=== PATIENT | female | born 1960 | race African-American/Black ===

== ENCOUNTER 2017-03-11 09:44 | Inpatient (IN) | payer OTHER ==
[2017-03-11 10:09] VITALS: BMI 25.6
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
[2017-03-11] MEDS ORDERED: MENTHOL/PHENOL 1 EACH UD MM PRN (12:30)
[2017-03-11] MEDS ORDERED: hydrOXYzine PAMOATE 50 MG CAPSULE (FP) PO PRN (12:30)
[2017-03-11] MEDS ORDERED: MAGNESIUM CITRATE 300 ML BOTTLE PO PRN (12:30)
[2017-03-11] MEDS ORDERED: MAG HYDROX/AL HYDROX/SIMETH 30 ML UNIT-DOSE CUP PO PRN (12:30)
[2017-03-11] MEDS ORDERED: NICOTINE POLACRILEX 2 MG GUM BUC PRN (12:30)
[2017-03-11] MEDS ORDERED: guaiFENesin/D-METHORPHAN HB 10 ML UNIT-DOSE CUPS PO PRN (12:30)
[2017-03-11] MEDS ORDERED: chlordiazePOXIDE HCL 25 MG CAPSULE PO PRN (12:30)
[2017-03-11] MEDS ORDERED: IBUPROFEN 400 MG TABLET (FP) PO PRN (12:30)
[2017-03-11] MEDS ORDERED: LOPERAMIDE HCL 2 MG CAPSULE PO PRN (12:30)
[2017-03-11] MEDS ORDERED: MAGNESIUM HYDROX 2400MG/30ML ORAL SUSPENSION 30 ML CUP PO PRN (12:30)
[2017-03-11] MEDS ORDERED: P-EPHED 60MG/TRIPROLIDI 2.5MG TABLET PO PRN (12:30)
[2017-03-11] MEDS ORDERED: chlordiazePOXIDE HCL 25 MG CAPSULE PO ONE (12:52)
[2017-03-11] MEDS: LISINOPRIL 5 MG TABLET (FP) PO SCH (13:16)
[2017-03-11] MEDS: NICOTINE 14 MG/24 HOURS TOPICAL PATCH TD SCH (13:19)
--- NOTE | 2017-03-11 13:30 | CONSULT ---
[facility] Psychiatric Consult - Data Date of interview: 03/11/17 Admission source: [facility] Identifying data: This is 56 years old female with psycvhiatric hospitalization history, history oif Bipolae disorder, intoxicated with: Opioids, Alcohol, Cocaine, PCP, Nicotine Substance Abuse History: - Smoking Cessation. Smoking history: Current every day smoker. Have you smoked in the past 12 months: Yes. Aproximately how many cigarettes per day: 20. If you are a former smoker, when did you quit?: 2 years ago. Cigars Per Day: 0. Hx Chewing Tobacco Use: No. Initiated information on smoking cessation: Yes. 'Breaking Loose' booklet given: . - Substance & Tx. History. Hx Alcohol Use: Yes. Hx Substance Use: Yes. Substance Use Type: Alcohol, Cocaine, Heroin, Opiates, Prescribed. Hx Substance Use Treatment: Yes. - Substances Abused. Heroin. Route: Smoking. Frequency: Daily. Amount used: 1 bundle. Age of first use: 55. Date of Last Use: 03/08/17. Cocaine. Route: Smoking. Frequency: Daily. Amount used: $800. Age of first use: 23. Date of Last Use: 03/10/17. PCP. Route: Smoking. Frequency: Daily. Amount used: 4 bags. Age of first use: 18. Date of Last Use: 03/10/17. Alcohol. Route: Oral. Frequency: Daily. Amount used: 6 12oz can of casi beer. Age of first use: 17. Date of Last Use: 03/09/17 Medical History: SLE, Hypothuroidism Psychiatric History: Patient reports history of Bipolar disorder with most recent psychiatric admission on 2014 at [facility] for safety, reports taking prior to admission: Celexa 20mg poqd. Seroquel 400mg pop qhs. Trazodone 150mg po qhs Physical/Sexual Abuse/Trauma History: Denies Additional Comment: Celexa 20mg poqd. Seroquel 400mg pop qhs. Trazodone 150mg po qhs Mental Status Exam - Mental Status Exam Alert and Oriented to: Person Cognitive Function: Fair Patient Appearance: Unkempt Mood: Angry Affect: Constricted Patient Behavior: Cooperative Speech Pattern: Appropriate Voice Loudness: Normal Thought Process: Goal Oriented Thought Disorder: Being Controlled Hallucinations: Denies Suicidal Ideation: Denies Homicidal Ideation: Denies Insight/Judgement: Fair Sleep: Difficulty falling asleep Appetite: Fair Muscle strength/Tone: Normal Gait/Station: Normal Additional Comments: Celexa 20mg poqd. Seroquel 400mg pop qhs. Trazodone 150mg po qhs Psychiatric Findings - Problem List ([place] 1, 2,3) (1) Alcohol dependence with uncomplicated withdrawal Current Visit: Yes Status: Acute (2) Opioid dependence on agonist therapy Current Visit: Yes Status: Acute (3) Bipolar disorder Current Visit: No Status: Chronic (4) Hypothyroidism Current Visit: No Status: Chronic (5) Lupus Current Visit: No Status: Chronic (6) PCP dependence Current Visit: No Status: Chronic - Initial Treatment Plan Initial Treatment Plan: Celexa 20mg poqd. Seroquel 400mg pop qhs. Trazodone 150mg po qhs
[2017-03-11] MEDS: HYDROXYCHLOROQUINE SO4 200 MG TABLET (FP) PO SCH ×2 (14:30→23:38)
[2017-03-11] MEDS: chlordiazePOXIDE HCL 25 MG CAPSULE PO SCH ×2 (17:27→23:38)
[2017-03-11 19:40] LABS: URINE APPEARANCE CLEAR; URINE BILIRUBIN NEGATIVE (NEGATIVE); URINE BLOOD NEGATIVE (NEGATIVE); URINE COLOR YELLOW; URINE GLUCOSE (UA) NEGATIVE (NEGATIVE); URINE KETONE NEGATIVE (NEGATIVE); URINE LEUK ESTERASE NEGATIVE (NEGATIVE); URINE NITRITE NEGATIVE (NEGATIVE); URINE PROTEIN NEGATIVE (NEGATIVE); URINE UROBILINOGEN NEGATIVE mg/dL (0.2-1.0)
[2017-03-11] MEDS: traZODone HCL 50 MG TABLET (FP) PO SCH (23:38)
[2017-03-11] MEDS: QUEtiapine FUMARATE 400 MG TABLET PO SCH (23:38)
[2017-03-11] MEDS: THIAMINE HCL 100 MG TABLET (FP) PO SCH (23:39)
[2017-03-12] MEDS: chlordiazePOXIDE HCL 25 MG CAPSULE PO SCH ×4 (05:34→23:41)
[2017-03-12 09:45] LABS: HEMATOCRIT 42.2 % (32.4-45.2); MCH 29.8 pg (25.7-33.7); MCHC 30.8 g/dl (32.0-36.0); MEAN CELL VOLUME 96.5 fl (80-96); MEAN PLT VOLUME 10.4 fl (7.5-11.1); PLATELET COUNT 186 K/MM3 (134-434); RBC 4.37 M/mm3 (3.60-5.2); RDW 14.2 % (11.6-15.6); WHITE BLOOD COUNT 3.6 K/mm3 (4.0-10.0)
[2017-03-12 09:57] LABS: ALBUMIN 2.7 g/dl (3.4-5.0); ANION GAP 6 (8-16); BLOOD UREA NITROGEN 19 mg/dL (7-18); CALCIUM 7.9 mg/dL (8.5-10.1); CHLORIDE 110 mmol/L (98-107); CO2 27 mmol/L (21-32); CREATININE 0.9 mg/dL (0.55-1.02); GLUCOSE,RANDOM 69 mg/dL (74-106); POTASSIUM 4.3 mmol/L (3.5-5.1); SGOT/AST 8 U/L (15-37); SGPT/ALT 16 U/L (12-78); SODIUM 143 mmol/L (136-145)
[2017-03-12 10:08] LABS: ALK PHOS 76 U/L (45-117); BILIRUBIN,TOTAL 0.4 mg/dL (0.2-1.0); TOT PROT 6.1 g/dl (6.4-8.2)
[2017-03-12] MEDS: HYDROXYCHLOROQUINE SO4 200 MG TABLET (FP) PO SCH ×2 (10:16→22:15)
[2017-03-12] MEDS: CITALOPRAM HYDROBROMIDE 20 MG TABLET (FP) PO SCH (10:16)
[2017-03-12] MEDS: METHADONE HCL 10 MG TABLET PO SCH (10:16)
[2017-03-12] MEDS: PRENATAL VITAMINS W/ FOLIC ACID TABLET (FP) PO SCH (10:16)
[2017-03-12] MEDS: LISINOPRIL 5 MG TABLET (FP) PO SCH (10:16)
[2017-03-12] MEDS: NICOTINE 14 MG/24 HOURS TOPICAL PATCH TD SCH (10:17)
[2017-03-12] MEDS ORDERED: FLU VACCINE QUAD 60 MCG/0.5 ML (MDV 17-18) IM ONE (12:00)
--- NOTE | 2017-03-12 13:21 | EKG ---
Test Reason : Blood Pressure : / mmHG Vent. Rate : 072 BPM Atrial Rate : 072 BPM P-R Int : 142 ms QRS Dur : 082 ms QT Int : 408 ms P-R-T Axes : 061 009 030 degrees QTc Int : 446 ms NORMAL SINUS RHYTHM POSSIBLE LEFT ATRIAL ENLARGEMENT BORDERLINE ECG NO PREVIOUS ECGS AVAILABLE Confirmed by MD Tien, Bandar ([id number]) on 03/12/2017 1:20:54 PM Referred By: Confirmed By:Bandar Chauhan MD
--- NOTE | 2017-03-12 13:56 | PN ---
S CIWA - CIWA Score Nausea/Vomitin Muscle Tremors: 4-Moderate,w/Arms Extend Anxiety: 4-Mod. Anxious/Guarded Agitation: 4-Moderately Restless Paroxysmal Sweats: 3 Orientation: 0-Oriented Tacttile Disturbances: 1-Very Mild Itch/Numbness Auditory Disturbances: 0-None Visual Disturbances: 0-None Headache: 2-Mild CIWA-Ar Total Score: 21 [facility] Progress Note (SOAP) Subjective: Tremor, chills, teary eyes, runny nose, sweating, yawning Objective: 03/12/17 13:53 Last Vital Signs Temp Pulse Resp BP Pulse Ox 97.3 F L 69 20 136/86 03/12/17 10:00 03/12/17 10:00 03/12/17 10:00 03/12/17 10:00 Laboratory Tests 03/11/17 03/12/17 03/12/17 19:00 06:00 06:00 WBC 3.6 L RBC 4.37 Hgb 13.0 D Hct 42.2 D MCV 96.5 H MCH 29.8 MCHC 30.8 L RDW 14.2 D Plt Count 186 MPV 10.4 Sodium 143 Potassium 4.3 Chloride 110 H Carbon Dioxide 27 Anion Gap 6 L BUN 19 H D Creatinine 0.9 D Creat Clearance w eGFR > 60 Random Glucose 69 L Calcium 7.9 L Total Bilirubin 0.4 D AST 8 L D ALT 16 D Alkaline Phosphatase 76 Total Protein 6.1 L Albumin 2.7 L TSH 0.75 Urine Color Yellow Urine Appearance Clear Urine pH 5.0 Ur Specific [place] 1.026 Urine Protein Negative Urine Glucose (UA) Negative Urine Ketones Negative Urine Blood Negative Urine Nitrite Negative Urine Bilirubin Negative Urine Urobilinogen Negative Ur Leukocyte Esterase Negative RPR Titer 03/12/17 06:00 WBC RBC Hgb Hct MCV MCH MCHC RDW Plt Count MPV Sodium Potassium Chloride Carbon Dioxide Anion Gap BUN Creatinine Creat Clearance w eGFR Random Glucose Calcium Total Bilirubin AST ALT Alkaline Phosphatase Total Protein Albumin TSH Urine Color Urine Appearance Urine pH Ur Specific [place] Urine Protein Urine Glucose (UA) Urine Ketones Urine Blood Urine Nitrite Urine Bilirubin Urine Urobilinogen Ur Leukocyte Esterase RPR Titer Nonreactive Labs noted Assessment: 03/12/17 13:54 Withdrawal symptoms Plan: Continue detox Methadone 20mg PO daily (MMTP) resumed Encouraged to drink lots of water for hydration
[2017-03-12] MEDS: QUEtiapine FUMARATE 400 MG TABLET PO SCH (22:15)
[2017-03-12] MEDS: THIAMINE HCL 100 MG TABLET (FP) PO SCH (22:15)
[2017-03-12] MEDS: ACETAMINOPHEN 325 MG TABLET (FP) PO PRN (22:16)
[2017-03-12] MEDS: traZODone HCL 50 MG TABLET (FP) PO SCH (23:41)
[2017-03-13] MEDS: chlordiazePOXIDE HCL 25 MG CAPSULE PO SCH ×2 (06:55→11:14)
--- NOTE | 2017-03-13 08:43 | PN ---
[facility] CIWA - CIWA Score Nausea/Vomitin Muscle Tremors: 3 Anxiety: 3 Agitation: 3 Paroxysmal Sweats: 3 Orientation: 0-Oriented Tacttile Disturbances: 1-Very Mild Itch/Numbness Auditory Disturbances: 0-None Visual Disturbances: 0-None Headache: 1-Very Mild CIWA-Ar Total Score: 17 [facility] Progress Note (SOAP) Subjective: patient appears sedated from trazadone given for sleep at night, responsive, interrupted sleep, anxiety, trmeosrs and sweats Objective: 03/13/17 08:42 Vital Signs - 8 hr 03/13/17 03/13/17 03:30 05:38 Temperature 98.1 F Pulse Rate 75 Respiratory 18 18 Rate Blood Pressure 133/74 Laboratory Tests 03/11/17 03/12/17 03/12/17 19:00 06:00 06:00 WBC 3.6 L RBC 4.37 Hgb 13.0 D Hct 42.2 D MCV 96.5 H MCH 29.8 MCHC 30.8 L RDW 14.2 D Plt Count 186 MPV 10.4 Sodium 143 Potassium 4.3 Chloride 110 H Carbon Dioxide 27 Anion Gap 6 L BUN 19 H D Creatinine 0.9 D Creat Clearance w eGFR > 60 Random Glucose 69 L Calcium 7.9 L Total Bilirubin 0.4 D AST 8 L D ALT 16 D Alkaline Phosphatase 76 Total Protein 6.1 L Albumin 2.7 L TSH 0.75 Urine Color Yellow Urine Appearance Clear Urine pH 5.0 Ur Specific [place] 1.026 Urine Protein Negative Urine Glucose (UA) Negative Urine Ketones Negative Urine Blood Negative Urine Nitrite Negative Urine Bilirubin Negative Urine Urobilinogen Negative Ur Leukocyte Esterase Negative RPR Titer 03/12/17 06:00 WBC RBC Hgb Hct MCV MCH MCHC RDW Plt Count MPV Sodium Potassium Chloride Carbon Dioxide Anion Gap BUN Creatinine Creat Clearance w eGFR Random Glucose Calcium Total Bilirubin AST ALT Alkaline Phosphatase Total Protein Albumin TSH Urine Color Urine Appearance Urine pH Ur Specific [place] Urine Protein Urine Glucose (UA) Urine Ketones Urine Blood Urine Nitrite Urine Bilirubin Urine Urobilinogen Ur Leukocyte Esterase RPR Titer Nonreactive Assessment: 03/13/17 08:42 withdrawal sx cont detox, d/c prns, cut dose of trazadone to prevent sedation in AM, fluids, encourage ambulation
[2017-03-13] MEDS: METHADONE HCL 10 MG TABLET PO SCH (09:00)
[2017-03-13] MEDS: HYDROXYCHLOROQUINE SO4 200 MG TABLET (FP) PO SCH ×2 (11:13→22:07)
[2017-03-13] MEDS: CITALOPRAM HYDROBROMIDE 20 MG TABLET (FP) PO SCH (11:13)
[2017-03-13] MEDS: PRENATAL VITAMINS W/ FOLIC ACID TABLET (FP) PO SCH (11:13)
[2017-03-13] MEDS: LISINOPRIL 5 MG TABLET (FP) PO SCH (11:14)
[2017-03-13] MEDS: NICOTINE 14 MG/24 HOURS TOPICAL PATCH TD SCH (11:16)
[2017-03-13] MEDS: chlordiazePOXIDE 5 MG CAPSULE PO SCH ×2 (18:02→22:53)
[2017-03-13] MEDS ORDERED: traZODone HCL 50 MG TABLET (FP) PO SCH (22:00)
[2017-03-13] MEDS: THIAMINE HCL 100 MG TABLET (FP) PO SCH (22:07)
[2017-03-13] MEDS: QUEtiapine FUMARATE 100 MG TABLET (FP) PO SCH (22:07)
[2017-03-13] MEDS: ACETAMINOPHEN 325 MG TABLET (FP) PO PRN (22:08)
[2017-03-14] MEDS: CITALOPRAM HYDROBROMIDE 20 MG TABLET (FP) PO SCH (10:05)
[2017-03-14] MEDS: LISINOPRIL 5 MG TABLET (FP) PO SCH (10:05)
[2017-03-14] MEDS: HYDROXYCHLOROQUINE SO4 200 MG TABLET (FP) PO SCH ×2 (10:05→22:26)
[2017-03-14] MEDS: PRENATAL VITAMINS W/ FOLIC ACID TABLET (FP) PO SCH (10:05)
[2017-03-14] MEDS: NICOTINE 14 MG/24 HOURS TOPICAL PATCH TD SCH (10:06)
[2017-03-14] MEDS: chlordiazePOXIDE 5 MG CAPSULE PO SCH (11:00)
--- NOTE | 2017-03-14 12:26 | PN ---
[facility] Progress Note (SOAP) Subjective: Headache, sweating, anxious Objective: 03/14/17 12:24 Last Vital Signs Temp Pulse Resp BP Pulse Ox 97.9 F 81 18 138/98 03/14/17 09:42 03/14/17 09:42 03/14/17 09:42 03/14/17 09:42 Laboratory Tests 03/11/17 03/12/17 03/12/17 19:00 06:00 06:00 WBC 3.6 L RBC 4.37 Hgb 13.0 D Hct 42.2 D MCV 96.5 H MCH 29.8 MCHC 30.8 L RDW 14.2 D Plt Count 186 MPV 10.4 Sodium 143 Potassium 4.3 Chloride 110 H Carbon Dioxide 27 Anion Gap 6 L BUN 19 H D Creatinine 0.9 D Creat Clearance w eGFR > 60 Random Glucose 69 L Calcium 7.9 L Total Bilirubin 0.4 D AST 8 L D ALT 16 D Alkaline Phosphatase 76 Total Protein 6.1 L Albumin 2.7 L TSH 0.75 Urine Color Yellow Urine Appearance Clear Urine pH 5.0 Ur Specific [place] 1.026 Urine Protein Negative Urine Glucose (UA) Negative Urine Ketones Negative Urine Blood Negative Urine Nitrite Negative Urine Bilirubin Negative Urine Urobilinogen Negative Ur Leukocyte Esterase Negative RPR Titer 03/12/17 06:00 WBC RBC Hgb Hct MCV MCH MCHC RDW Plt Count MPV Sodium Potassium Chloride Carbon Dioxide Anion Gap BUN Creatinine Creat Clearance w eGFR Random Glucose Calcium Total Bilirubin AST ALT Alkaline Phosphatase Total Protein Albumin TSH Urine Color Urine Appearance Urine pH Ur Specific [place] Urine Protein Urine Glucose (UA) Urine Ketones Urine Blood Urine Nitrite Urine Bilirubin Urine Urobilinogen Ur Leukocyte Esterase RPR Titer Nonreactive Labs noted Assessment: 03/14/17 12:24 Withdrawal symptoms Plan: Continue detox Encouraged to drink lots of water
[2017-03-14] MEDS: chlordiazePOXIDE HCL 10 MG CAPSULE PO SCH ×2 (17:45→22:36)
[2017-03-14] MEDS: THIAMINE HCL 100 MG TABLET (FP) PO SCH (22:26)
[2017-03-14] MEDS: QUEtiapine FUMARATE 100 MG TABLET (FP) PO SCH (22:26)
[2017-03-15] MEDS: chlordiazePOXIDE HCL 10 MG CAPSULE PO SCH (05:25)
[2017-03-15 10:02] VITALS: BP 123/78; PULSE 83; TEMP 97.7
[2017-03-15] MEDS: HYDROXYCHLOROQUINE SO4 200 MG TABLET (FP) PO SCH (10:13)
[2017-03-15] MEDS: PRENATAL VITAMINS W/ FOLIC ACID TABLET (FP) PO SCH (10:13)
[2017-03-15] MEDS: NICOTINE 14 MG/24 HOURS TOPICAL PATCH TD SCH (10:13)
[2017-03-15] MEDS: CITALOPRAM HYDROBROMIDE 20 MG TABLET (FP) PO SCH (10:13)
[2017-03-15] MEDS: LISINOPRIL 5 MG TABLET (FP) PO SCH (10:13)
--- NOTE | 2017-03-15 16:53 | DS ---
[facility] Detox Discharge Summary Admission Date: 03/11/17 Discharge Date: 03/15/17 - History Present History: Alcohol Dependence, Cocaine Dependence, Opioid Dependence Additional Comments: Patient was accepted to inpatient rehab here at [facility] but she refused stating that she wants to go home and take care of things. As per patient, she is not ready for rehab and will call to see if any bed available whenever she is ready for rehab. Pertinent Past History: SLE - Physical Exam Results Vital Signs: Vital Signs Temperature 97.7 F 03/15/17 10:00 Pulse Rate 83 03/15/17 10:00 Respiratory Rate 18 03/15/17 10:00 Blood Pressure 123/78 03/15/17 10:00 O2 Sat by Pulse Oximetry (%) Pertinent Admission Physical Exam Findings: Withdrawal symptoms Laboratory Tests 03/11/17 03/12/17 03/12/17 19:00 06:00 06:00 WBC 3.6 L RBC 4.37 Hgb 13.0 D Hct 42.2 D MCV 96.5 H MCH 29.8 MCHC 30.8 L RDW 14.2 D Plt Count 186 MPV 10.4 Sodium 143 Potassium 4.3 Chloride 110 H Carbon Dioxide 27 Anion Gap 6 L BUN 19 H D Creatinine 0.9 D Creat Clearance w eGFR > 60 Random Glucose 69 L Calcium 7.9 L Total Bilirubin 0.4 D AST 8 L D ALT 16 D Alkaline Phosphatase 76 Total Protein 6.1 L Albumin 2.7 L TSH 0.75 Urine Color Yellow Urine Appearance Clear Urine pH 5.0 Ur Specific [place] 1.026 Urine Protein Negative Urine Glucose (UA) Negative Urine Ketones Negative Urine Blood Negative Urine Nitrite Negative Urine Bilirubin Negative Urine Urobilinogen Negative Ur Leukocyte Esterase Negative RPR Titer 03/12/17 06:00 WBC RBC Hgb Hct MCV MCH MCHC RDW Plt Count MPV Sodium Potassium Chloride Carbon Dioxide Anion Gap BUN Creatinine Creat Clearance w eGFR Random Glucose Calcium Total Bilirubin AST ALT Alkaline Phosphatase Total Protein Albumin TSH Urine Color Urine Appearance Urine pH Ur Specific [place] Urine Protein Urine Glucose (UA) Urine Ketones Urine Blood Urine Nitrite Urine Bilirubin Urine Urobilinogen Ur Leukocyte Esterase RPR Titer Nonreactive Labs noted - Treatment Hospital Course: Detox Protocol Followed, Detoxed Safely, Responded well, Discharged Condition Good - Medication Discharge Medications: Ambulatory Orders Hydroxychloroquine So4 [Plaquenil -] 200 mg PO BID 08/20/13 Citalopram Hydrobromide [Celexa -] 20 mg PO DAILY #30 tablet 03/11/17 Quetiapine Fumarate [Seroquel -] 400 mg PO HS #30 tablet 03/11/17 Trazodone HCl [Desyrel -] 150 mg PO HS #30 tablet 03/11/17 Trazodone HCl [Desyrel -] 150 mg PO HS #30 tablet 03/12/17 Trazodone HCl 150 mg PO HS #30 tablet 03/13/17 - Diagnosis (1) Cocaine dependence Status: Chronic (2) Nicotine dependence Status: Chronic (3) Alcohol dependence with uncomplicated withdrawal Status: Acute (4) Opioid dependence on agonist therapy Status: Acute (5) SLE (systemic lupus erythematosus) Status: Chronic (6) Bipolar disorder Status: Chronic - AMA Did Patient Leave Against Medical Advice: No (F/U with PCP within 1 week, pt refused rehab here at [facility])
== END 2017-03-15 10:18 | disposition home or self-care (01) | DRG 773 ==
LOC: YASAS 09:44 → Y6N 11:16
PROVIDERS: ADMIT Internal Medicine; ATTEND Internal Medicine
PROC: HZ2ZZZZ Detoxification Services for Substance Abuse Treatment (ICD-10-PCS; principal; 2017-03-11)
DX: F10.230 Alcohol dependence with withdrawal, uncomplicated (principal); F11.20 Opioid dependence, uncomplicated; F14.20 Cocaine dependence, uncomplicated; F16.20 Hallucinogen dependence, uncomplicated; F17.210 Nicotine dependence, cigarettes, uncomplicated; F31.9 Bipolar disorder, unspecified; M32.9 Systemic lupus erythematosus, unspecified
CPT/HCPCS: 36415; 80053; 81003; 84443; 85027; 86593; 90688; 93005; 93010; G0008

== ENCOUNTER 2018-05-31 01:05 | Inpatient (IN) | payer OTHER ==
[2018-05-31 02:11] VITALS: BMI 22.3
--- NOTE | 2018-05-31 02:11 | HP ---
CIWA Score Nausea/Vomitin-No Nausea/No Vomiting Muscle Tremors: None Anxiety: 4-Mod. Anxious/Guarded Agitation: 4-Moderately Restless Paroxysmal Sweats: No Perspiration Orientation: 0-Oriented Tacttile Disturbances: 3-Moderate Itch/Numb/Burn Auditory Disturbances: 1-Very Mild Visual Disturbances: 1-Very Mild Sensitivity Headache: 2-Mild CIWA-Ar Total Score: 15 - Admission Criteria [facility] Guidelines: Admission for Medically Managed Detox: Requires at least one of the followin. CIWA greater than 12 2. Seizures within the past 24 hours 3. Delirium tremens within the past 24 hours 4. Hallucinations within the past 24 hours 5. Acute intervention needed for co occurring medical disorder 6. Acute intervention needed for co occurring psychiatric disorder 7. Severe withdrawal that cannot be handled at a lower level of care (continued vomiting, continued diarrhea, abnormal vital signs) requiring intravenous medication and/or fluids 8. Patient presents the following: CIWA greater than 12, Acute intervention needed for co-occurring med or psych disorder (bipolar, depression, lupus, eczema) Admission Criteria Met: Admission criteria met Admission ROS [facility] - [facility] Chief Complaint: c/o worsening withdrawal sx's Allergies/Adverse Reactions: Allergies Allergy/AdvReac Type Severity Reaction Status Date / Time No Known Allergies Allergy Verified 05/31/18 04:40 History of Present Illness: 58 Y.O. FEMALE WITH HX/O ALCOHOLISM SEEKING DETOX. CLIENT WAS REFERRED BY HER [facility] WHERE SHE IS ON MMTP . SHE REPORTS HER daily METHADONE DOSE IS 20 MG LDM 05/30/2018. SHE IS KNOWN TO THIS PROGRAM. LAST HERE 02/2017. SHE PRESENTS WITH C/O WITHDRAWAL SX'S. CIWA 15. MARTHA 0, UTOX + MTD, OPI, ESTEFANIA. SHE REPORTS 2- 6 PACKS OF BEER AND 1/2 PINT OF LIQUOR DAILY. LAST USE 1 DAY AGO.PMHX OF LUPUS, BIPOLAR, DEPRESSION, ECZEMA. LAST DETOX 2 YEARS AGO. REPORTS LONGEST CLEAN TIME 3 YEARS [id number]. RELAPSING IN 2013. DENIES HX/O SEIZURES, DT'S, SI, HI, AVH. CURRENTLY LIVES WITH FAMILY, UNEMPLOYED-SSI, DENIES LEGALS Exam Limitations: Physical Impairment (UNSTEADY GAIT 2/2 BLE PAIN) - Ebola screening Have you traveled outside of the country in the last 21 days: No Have you had contact with anyone from an Ebola affected area: No Have you been sick,other than usual withdrawal symptoms: No Do you have a fever: No - Review of Systems Constitutional: Loss of Appetite, Malaise, Night Sweats, Changes in sleep EENT: reports: Dental Problems (TOOTH ACHE) Respiratory: reports: No Symptoms reported Cardiac: reports: No Symptoms Reported GI: reports: Poor Appetite, Poor Fluid Intake : reports: Incontinence Musculoskeletal: reports: Back Pain, Joint Pain, Neck Pain Integumentary: reports: Dryness (GENERALIZED ECZEMA RASH TO LIMBS), Pruritus, Rash (ECZEMA) Neuro: reports: Tingling (TO BLE), Unsteady Gait (2/2 BLE FOOT PAIN) Endocrine: reports: No Symptoms Reported Hematology: reports: No Symptoms Reported Psychiatric: reports: Orientated x3, Agitated (IRRITABLE), Anxious, Depressed Other Systems: Reviewed and Negative Patient History - Patient Medical History Hx Anemia: No Hx Asthma: No Hx Chronic Obstructive Pulmonary Disease (COPD): No Hx Cancer: No Hx Cardiac Disorders: No Hx Congestive Heart Failure: No Hx Hypertension: No Hx Hypercholesterolemia: No Hx Pacemaker: No HX Cerebrovascular Accident: No Hx Seizures: No Hx Dementia: No Hx Diabetes: No Hx Gastrointestinal Disorders: No Hx Liver Disease: No Hx Genitourinary Disorders: No Hx Sexually Transmitted Disorders: No Hx Renal Disease (ESRD): No Hx Thyroid Disease: Yes Hx Human Immunodeficiency Virus (HIV): No Hx Hepatitis C: No Hx Depression: Yes Hx Suicide Attempt: No Hx Bipolar Disorder: Yes Hx Schizophrenia: No Other Medical History: LUPUS/ECZEMA - Patient Surgical History Past Surgical History: No Hx Neurologic Surgery: No Hx Cataract Extraction: No Hx Cardiac Surgery: No Hx Lung Surgery: No Hx Breast Surgery: No Hx Breast Biopsy: No Hx Abdominal Surgery: No Hx Appendectomy: No Hx Cholecystectomy: No Hx Genitourinary Surgery: No Hx Section: No Hx Orthopedic Surgery: No Hx Hysterectomy: No Anesthesia Reaction: No - PPD History Previous Implant?: Yes Documented Results: Negative w/o proof Implanted On Prior [facility] Admission?: Yes Date: 03/13/17 Results: 0MM PPD to be Administered?: Yes - Reproductive History Patient is a Female of Child Bearing Age (11 -55 yrs old): No Last Menstrual Period: 08/21/10 [place] [facility] [place] - Smoking Cessation Smoking history: Current every day smoker Have you smoked in the past 12 months: Yes Aproximately how many cigarettes per day: 10 Cigars Per Day: 0 Hx Chewing Tobacco Use: No Initiated information on smoking cessation: Yes 'Breaking Loose' booklet given: 05/31/18 - Substance & Tx. History Hx Alcohol Use: Yes Hx Substance Use: Yes Substance Use Type: Alcohol, Cocaine, Prescribed (MTD) Hx Substance Use Treatment: Yes ([facility]) - Substances Abused BEER/VODKA Route: Oral Frequency: Daily Amount used: 2-6 PACK/ 1/2 PINT Age of first use: 13 Date of Last Use: 05/30/18 COCAINE Route: Smoking Frequency: Daily Amount used: $400 Age of first use: 23 Date of Last Use: 05/30/18 HEROIN Route: Smoking Frequency: 1-2 times per week Amount used: 1/2 BAG Age of first use: 23 Date of Last Use: 05/30/18 Family Disease History - Family Disease History Family Disease History: Diabetes: Mother, Heart Disease: Father, CA: Sister Admission Physical Exam [facility] - Physical General Appearance: Yes: Disheveled, Moderate Distress, Irritable, Anxious, Other (MALODUROUS/ UNKEPT/SOILED CLOTHING) HEENTM: Yes: EOMI, Normocephalic, Normal Voice, FRANCOISE, Pharynx Normal, Rhinorrhea , Other (POOR DENTITION) Respiratory: Yes: Chest Non-Tender, Lungs Clear, Normal Breath Sounds, No Respiratory Distress, No Accessory Muscle Use Neck: Yes: No masses,lesions,Nodules, Supple, Trachea in good position Breast: Yes: Breast Exam Deferred Cardiology: Yes: Regular Rhythm, Regular Rate, S1, S2, Murmur Abdominal: Yes: Normal Bowel Sounds, Non Tender, Soft Genitourinary: Yes: Incontinient (REPRTED) Back: Yes: Normal Inspection Musculoskeletal: Yes: Other (UNSTEADY GAIT 2/2 TO LIMPING /R FOOT PAIN) Extremities: Yes: Swelling (BLE NON PITTING) Neurological: Yes: Fully Oriented, Alert, Motor Strength 5/5, Depressed Affect Integumentary: Yes: Dry (FLAKY), Warm, Rash (TO BLE AND FEET PATCHES OF DRY SILVERY FLAKY SKIN WITH AREAS OF LICHENIFICATION) Lymphatic: Yes: Within Normal Limits - Diagnostic (1) Alcohol dependence with uncomplicated withdrawal Current Visit: Yes Status: Acute (2) Opioid dependence on agonist therapy Current Visit: Yes Status: Chronic Comment: HELP METHADONE 20 MG PENDING VERIFICATION (3) Cocaine dependence Current Visit: Yes Status: Acute Qualifiers: Substance use status: uncomplicated Qualified Code(s): F14.20 - Cocaine dependence, uncomplicated (4) Nicotine dependence Current Visit: Yes Status: Chronic Qualifiers: Nicotine product type: cigarettes Substance use status: uncomplicated Qualified Code(s): F17.210 - Nicotine dependence, cigarettes, uncomplicated (5) SLE (systemic lupus erythematosus) Current Visit: Yes Status: Chronic Qualifiers: Systemic lupus erythematosus type: unspecified Systemic lupus erythematosus organ involvement: unspecified Qualified Code(s): M32.9 - Systemic lupus erythematosus, unspecified (6) At risk for dehydration due to poor fluid intake Current Visit: Yes Status: Acute (7) Depressed affect Current Visit: Yes Status: Acute (8) Eczema of lower leg Current Visit: Yes Status: Chronic (9) Urinary incontinence Current Visit: Yes Status: Chronic Qualifiers: Urinary Incontinence type: unspecified incontinence Qualified Code(s): R32 - Unspecified urinary incontinence (10) Hypothyroidism Current Visit: Yes Status: Chronic Qualifiers: Hypothyroidism type: unspecified Qualified Code(s): E03.9 - Hypothyroidism , unspecified Comment: NON COMPLAINT WITH TXMENT (11) Essential (primary) hypertension Current Visit: Yes Status: Chronic Cleared for Admission BHS - Detox or Rehab [facility] Level of Care: Medically Managed Detox Regimen/Protocol: Librium Claeared for Rehab Admission: No BHS Breath Alcohol Content Breath Alcohol Content: 0 Vital Signs - Vital Signs Vital Signs Refused: No Temperature: 97.9 F Temperature Source: Oral Pulse Rate: 83 Respiratory Rate: 18 Blood Pressure: 135/91 BP Location: Left Arm Blood Pressure Position: Sitting - Height Height: 5 ft 2 in - Weight Weight: 55.338 kg Weight Measurement Method: Standing Scale Body Mass Index (BMI): 22.3 - Bowel Function Bowel Movement: No Urine Pregancy Test - Test Device Lot Number: [id number] Expiration Date: 11/16/19 - Control Horizontal Line in Upper Control Window?: Yes - Result Urine Test Results: Negative - NO Line Present Urine Drug Screen - Test Device Lot Number: [id number] Expiration Date: 02/15/20 - Control Is Test Valid: Yes - Results Drug Screen Negative: No Urine Drug Screen Results: ESTEFANIA-Cocaine, OPI-Opiates, MTD-Methadone Inpatient Rehab Admission - Rehab Decision to Admit Inpatient rehab admission?: No
[2018-05-31] MEDS ORDERED: MAGNESIUM CITRATE 300 ML BOTTLE PO PRN (02:42)
[2018-05-31] MEDS ORDERED: hydrOXYzine PAMOATE 25 MG CAPSULE (FP) PO PRN (02:42)
[2018-05-31] MEDS ORDERED: ONDANSETRON *ODT* 4 MG TABLET SL PRN (02:42)
[2018-05-31] MEDS ORDERED: P-EPHED 60MG/TRIPROLIDI 2.5MG TABLET PO PRN (02:42)
[2018-05-31] MEDS ORDERED: ACETAMINOPHEN 325 MG TABLET (FP) PO PRN (02:42)
[2018-05-31] MEDS ORDERED: DICYCLOMINE HCL 10 MG CAPSULE PO PRN (02:42)
[2018-05-31] MEDS ORDERED: MAG HYDROX/AL HYDROX/SIMETH 30 ML UNIT-DOSE CUP PO PRN (02:42)
[2018-05-31] MEDS ORDERED: MENTHOL/PHENOL 1 EACH UD MM PRN (02:42)
[2018-05-31] MEDS ORDERED: MAGNESIUM HYDROX 2400MG/30ML ORAL SUSPENSION 30 ML CUP PO PRN (02:42)
[2018-05-31] MEDS ORDERED: NICOTINE POLACRILEX 2 MG GUM BUC PRN (02:42)
[2018-05-31] MEDS ORDERED: BISMUTH SUBSALICYLATE 524 MG/30 ML UD PO PRN (02:42)
[2018-05-31] MEDS ORDERED: guaiFENesin 200 MG/10 ML 10 ML UNIT-DOSE CUPS PO PRN (02:42)
[2018-05-31] MEDS ORDERED: MELATONIN 5 MG TABLETS PO PRN (02:42)
[2018-05-31] MEDS ORDERED: chlordiazePOXIDE HCL 25 MG CAPSULE PO PRN (02:46)
[2018-05-31] MEDS: IBUPROFEN 400 MG TABLET (FP) PO PRN ×2 (05:00→23:01)
[2018-05-31] MEDS: chlordiazePOXIDE HCL 25 MG CAPSULE PO SCH ×4 (05:00→23:00)
[2018-05-31] MEDS: TRIAMCINOLONE ACET 0.1% OINT 15 GM TUBE TP SCH ×3 (05:10→21:12)
--- NOTE | 2018-05-31 10:05 | CONSULT ---
[facility] Psychiatric Consult - Data Date of interview: 05/31/18 Admission source: [facility] Identifying data: Readmission to [facility] for this 58 y/o AA female self- referred for detoxification (heroin, cocaine, alcohol). Examined on . Patient is single, a mother of eight, domiciled, unemployed and supported on SSI benefits. Substance Abuse History: Confirmed by the patient in this interview. Details in current [facility] report as follows : Smoking history: Current every day smoker. Have you smoked in the past 12 months: Yes. Aproximately how many cigarettes per day: 10. Cigars Per Day: 0. Hx Chewing Tobacco Use: No. Initiated information on smoking cessation: Yes. 'Breaking Loose' booklet given: . - Substance & Tx. History. Hx Alcohol Use: Yes. Hx Substance Use: Yes. Substance Use Type: Alcohol, Cocaine, Prescribed (MTD). Hx Substance Use Treatment: Yes ([facility]). - Substances Abused. BEER/VODKA. Route: Oral. Frequency: Daily. Amount used: 2-6 PACK/ 1/2 PINT. Age of first use: 13. Date of Last Use: 05/30/18. COCAINE. Route: Smoking. Frequency: Daily. Amount used: $400. Age of first use: 23. Date of Last Use: 05/30/18. HEROIN. Route: Smoking. Frequency: 1-2 times per week. Amount used: 1/2 BAG. Age of first use: 23. Date of Last Use: 05/30/18 Medical History: Remarkable for systemic lupus erythematosus (SLE), chronic lumbar pain, hypothyroidism and generalized eczema. Psychiatric History: Patient endorses a history of one psychiatric hospitalization, in 2006, at the [facility] in [facility]. Circumstances of admission : mood dysregulation, hyperactivity, sleep disturbances, deterioration of general functioning, racing thoughts. Diagnosed with Bipolar Disorder. Ms Sorenson reports treatment with various psychotropic medications (valproate, seroquel, trazodone, citalopram, risperidone and other unrecalled drugs). Admits to chronic non-adherence with psychiatric OPD care. " I have not taken my medications for a while ". Patient is known to the [facility]. She is currently affiliated with [facility] program in [facility] (on methadone maintenance : 20 mg/day). No reported history of suicide attempts. Physical/Sexual Abuse/Trauma History: Patient denies. Additional Comment: Urine Drug Screen Results: ESTEFANIA-Cocaine, OPI-Opiates, MTD- Methadone. Noted. Mental Status Exam - Mental Status Exam Alert and Oriented to: Place, Person Cognitive Function: Good Patient Appearance: Unkempt, Disheveled Mood: Withdrawn Affect: Constricted Patient Behavior: Sedated (falling asleep during interview) Speech Pattern: Delayed, Slurred (needs prompting to maintain conversation) Voice Loudness: Moderately Soft/Quiet Thought Process: Goal Oriented (able to follow directions and simple commands) Thought Disorder: Not Present Hallucinations: Denies Suicidal Ideation: Denies Homicidal Ideation: Denies Insight/Judgement: Poor Sleep: Well Appetite: Fair Gait/Station: Other (unsteady and slow gait) Psychiatric Findings - Problem List ([place] 1, 2,3) (1) Sedated due to medication Current Visit: Yes Status: Acute (2) Alcohol dependence with uncomplicated withdrawal Current Visit: Yes Status: Acute (3) Cocaine dependence Current Visit: Yes Status: Chronic Qualifiers: Substance use status: uncomplicated Qualified Code(s): F14.20 - Cocaine dependence, uncomplicated (4) Opioid dependence on agonist therapy Current Visit: Yes Status: Chronic Comment: HELP METHADONE 20 MG PENDING VERIFICATION (5) Nicotine dependence Current Visit: Yes Status: Chronic Qualifiers: Nicotine product type: cigarettes Substance use status: uncomplicated Qualified Code(s): F17.210 - Nicotine dependence, cigarettes, uncomplicated (6) History of bipolar disorder Current Visit: Yes Status: Chronic (7) Non-compliance Current Visit: Yes Status: Chronic - Initial Treatment Plan Initial Treatment Plan: Psychoeducation will be initiated as soon as cognition improves. Support. Falls precautions. AA/NA meetings, groups, motivational sessions when fully awake. Detoxification. Seroquel, trazodone celexa are held until further orders. Observation.
[2018-05-31] MEDS: NICOTINE 14 MG/24 HOURS TOPICAL PATCH TD SCH (10:54)
[2018-05-31] MEDS: amLODIPine BESYLATE 10 MG TABLET (FP) PO SCH (10:55)
[2018-05-31] MEDS: PRENATAL VITAMINS W/ FOLIC ACID TABLET (FP) PO SCH (10:55)
[2018-05-31] MEDS ORDERED: FLU VACCINE QUAD 60 MCG/0.5 ML (MDV 18-19) IM ONE (12:00)
[2018-05-31] MEDS ORDERED: PNEUMOCOCCAL 23 VACCINE 0.5 ML VIAL IM ONE (12:00)
[2018-05-31] MEDS ORDERED: PNEUMOC 13-VAL CONJ-DIP CRM/PF 0.5 ML DISP.SYRIN IM ONE (12:00)
[2018-05-31] MEDS: HYDROXYCHLOROQUINE SO4 200 MG TABLET (FP) PO SCH ×2 (13:29→21:12)
--- NOTE | 2018-05-31 16:15 | PN ---
S CIWA - CIWA Score Nausea/Vomitin-No Nausea/No Vomiting Muscle Tremors: 2 Anxiety: 4-Mod. Anxious/Guarded Agitation: 3 Paroxysmal Sweats: No Perspiration Orientation: 0-Oriented Tacttile Disturbances: 0-None Auditory Disturbances: 3-Moderate Harsh/Frighten Visual Disturbances: 1-Very Mild Sensitivity Headache: 0-None Present CIWA-Ar Total Score: 13 BHS Progress Note (SOAP) Subjective: Restless, Anxious, Tremors, Interrupted Sleep. Objective: PATIENT A & O X 3, OBSERVED AMBULATING ON UNIT. IN NO ACUTE DISTRESS. 05/31/18 16:14 Vital Signs Temperature 97.8 F 05/31/18 14:00 Pulse Rate 80 05/31/18 14:00 Respiratory Rate 18 05/31/18 14:00 Blood Pressure 128/80 05/31/18 14:00 O2 Sat by Pulse Oximetry (%) ADMISSION LAB RESULTS PENDING. 05/31/18 16:14 Assessment: 05/31/18 16:14 WITHDRAWAL SYMPTOMS. Plan: CONTINUE DETOX.
[2018-05-31] MEDS: THIAMINE HCL 100 MG TABLET (FP) PO SCH (21:12)
[2018-06-01] MEDS: chlordiazePOXIDE HCL 25 MG CAPSULE PO SCH ×4 (06:11→23:00)
[2018-06-01] MEDS: TRIAMCINOLONE ACET 0.1% OINT 15 GM TUBE TP SCH ×3 (06:14→23:00)
[2018-06-01] MEDS: PRENATAL VITAMINS W/ FOLIC ACID TABLET (FP) PO SCH (10:30)
[2018-06-01] MEDS: amLODIPine BESYLATE 10 MG TABLET (FP) PO SCH (10:30)
[2018-06-01] MEDS: HYDROXYCHLOROQUINE SO4 200 MG TABLET (FP) PO SCH ×2 (10:30→23:00)
[2018-06-01] MEDS: NICOTINE 14 MG/24 HOURS TOPICAL PATCH TD SCH (10:31)
[2018-06-01 11:29] LABS: HEMATOCRIT 39.1 % (32.4-45.2); HEMOGLOBIN 13.1 GM/dL (10.7-15.3); MCHC 33.5 g/dl (32.0-36.0); MEAN CELL VOLUME 95.7 fl (80-96); MEAN PLT VOLUME 9.8 fl (7.5-11.1); PLATELET COUNT 192 K/MM3 (134-434); RBC 4.09 M/mm3 (3.60-5.2); RDW 14.3 % (11.6-15.6); WHITE BLOOD COUNT 4.1 K/mm3 (4.0-10.0)
[2018-06-01 11:56] LABS: ALBUMIN 2.8 g/dl (3.4-5.0); ALK PHOS 87 U/L (45-117); ANION GAP 6 MMOL/L (8-16); BILIRUBIN,TOTAL 0.2 mg/dL (0.2-1); BLOOD UREA NITROGEN 18 mg/dL (7-18); CALCIUM 7.7 mg/dL (8.5-10.1); CHLORIDE 113 mmol/L (98-107); CO2 26 mmol/L (21-32); GLUCOSE,RANDOM 83 mg/dL (74-106); POTASSIUM 3.8 mmol/L (3.5-5.1); SGOT/AST 8 U/L (15-37); SGPT/ALT 16 U/L (13-61); SODIUM 145 mmol/L (136-145); TOT PROT 6.3 g/dl (6.4-8.2)
--- NOTE | 2018-06-01 12:10 | PN ---
S CIWA - CIWA Score Nausea/Vomitin-No Nausea/No Vomiting Muscle Tremors: 2 Anxiety: 1-Mildly Anxious Agitation: 2 Paroxysmal Sweats: 1-Minimal Palms Moist Orientation: 1-Uncertain about Date Tacttile Disturbances: 0-None Auditory Disturbances: 0-None Visual Disturbances: 0-None Headache: 1-Very Mild CIWA-Ar Total Score: 8 S Progress Note (SOAP) Subjective: irritable tearful at time denies suicidal ideation ambulate with wheelchair both lower legs skin discoloration due to poor peripheral circulation skin dryness mild tremor otherwise doing ok Objective: 06/01/18 12:14 Vital Signs Temperature 97.5 F L 06/01/18 09:58 Pulse Rate 80 06/01/18 09:58 Respiratory Rate 16 06/01/18 09:58 Blood Pressure 120/76 06/01/18 09:58 O2 Sat by Pulse Oximetry (%) Laboratory Last Values WBC 4.1 K/mm3 (4.0-10.0) 06/01/18 07:35 RBC 4.09 M/mm3 (3.60-5.2) 06/01/18 07:35 Hgb 13.1 GM/dL (10.7-15.3) 06/01/18 07:35 Hct 39.1 % (32.4-45.2) 06/01/18 07:35 MCV 95.7 fl (80-96) 06/01/18 07:35 MCH 32.0 pg (25.7-33.7) 06/01/18 07:35 MCHC 33.5 g/dl (32.0-36.0) 06/01/18 07:35 RDW 14.3 % (11.6-15.6) 06/01/18 07:35 Plt Count 192 K/MM3 (134-434) 06/01/18 07:35 MPV 9.8 fl (7.5-11.1) 06/01/18 07:35 Sodium 145 mmol/L (136-145) 06/01/18 07:35 Potassium 3.8 mmol/L (3.5-5.1) 06/01/18 07:35 Chloride 113 mmol/L (98-107) H 06/01/18 07:35 Carbon Dioxide 26 mmol/L (21-32) 06/01/18 07:35 Anion Gap 6 MMOL/L (8-16) L 06/01/18 07:35 BUN 18 mg/dL (7-18) 06/01/18 07:35 Creatinine 1.0 mg/dL (0.55-1.3) 06/01/18 07:35 Creat Clearance w eGFR 57.35 (>60) 06/01/18 07:35 Random Glucose 83 mg/dL (74-106) 06/01/18 07:35 Calcium 7.7 mg/dL (8.5-10.1) L 06/01/18 07:35 Total Bilirubin 0.2 mg/dL (0.2-1) 06/01/18 07:35 AST 8 U/L (15-37) L 06/01/18 07:35 ALT 16 U/L (13-61) 06/01/18 07:35 Alkaline Phosphatase 87 U/L (45-117) 06/01/18 07:35 Total Protein 6.3 g/dl (6.4-8.2) L 06/01/18 07:35 Albumin 2.8 g/dl (3.4-5.0) L 06/01/18 07:35 RPR Titer Nonreactive (NONREACTIVE) 06/01/18 07:35 lab noted low calcium Assessment: 06/01/18 12:14 withdrawal sx Plan: continue detox eucerin cream
[2018-06-01] MEDS: MINERAL OIL/PETROLAT/WATER TOPICAL CREAM 113 GM JAR TP SCH (17:00)
[2018-06-01] MEDS: METHOCARBAMOL 500 MG TABLET PO PRN (19:35)
[2018-06-01] MEDS: IBUPROFEN 400 MG TABLET (FP) PO PRN (19:35)
[2018-06-01] MEDS: THIAMINE HCL 100 MG TABLET (FP) PO SCH (23:00)
[2018-06-02] MEDS ORDERED: chlordiazePOXIDE HCL 10 MG CAPSULE PO PRN (05:00)
[2018-06-02] MEDS: chlordiazePOXIDE HCL 10 MG CAPSULE PO SCH ×4 (06:14→22:32)
[2018-06-02] MEDS: TRIAMCINOLONE ACET 0.1% OINT 15 GM TUBE TP SCH ×3 (06:14→23:06)
[2018-06-02] MEDS: amLODIPine BESYLATE 10 MG TABLET (FP) PO SCH (09:54)
[2018-06-02] MEDS: HYDROXYCHLOROQUINE SO4 200 MG TABLET (FP) PO SCH ×2 (09:54→22:32)
[2018-06-02] MEDS: PRENATAL VITAMINS W/ FOLIC ACID TABLET (FP) PO SCH (09:54)
[2018-06-02] MEDS: METHOCARBAMOL 500 MG TABLET PO PRN ×2 (09:54→17:44)
[2018-06-02] MEDS: NICOTINE 14 MG/24 HOURS TOPICAL PATCH TD SCH (09:56)
[2018-06-02] MEDS: MINERAL OIL/PETROLAT/WATER TOPICAL CREAM 113 GM JAR TP SCH (09:57)
[2018-06-02] MEDS ORDERED: METHADONE HCL 10 MG TABLET PO ONE (10:30)
--- NOTE | 2018-06-02 12:31 | PN ---
S CIWA - CIWA Score Nausea/Vomitin-No Nausea/No Vomiting Muscle Tremors: 1-None Visible, but [place] Anxiety: 1-Mildly Anxious Agitation: 1-Slight > Activity Paroxysmal Sweats: 1-Minimal Palms Moist Orientation: 0-Oriented Tacttile Disturbances: 0-None Auditory Disturbances: 0-None Visual Disturbances: 0-None Headache: 1-Very Mild CIWA-Ar Total Score: 5 BHS Progress Note (SOAP) Subjective: tremor irritable begin methadone 20 mg maintenance treatment today sweating Objective: 06/02/18 12:29 Vital Signs Temperature 96.7 F L 06/02/18 09:12 Pulse Rate 70 06/02/18 09:12 Respiratory Rate 18 06/02/18 09:12 Blood Pressure 127/73 06/02/18 09:12 O2 Sat by Pulse Oximetry (%) Laboratory Tests 06/01/18 06/01/18 06/01/18 07:35 07:35 07:35 WBC 4.1 RBC 4.09 Hgb 13.1 Hct 39.1 MCV 95.7 MCH 32.0 MCHC 33.5 RDW 14.3 Plt Count 192 MPV 9.8 Sodium 145 Potassium 3.8 Chloride 113 H Carbon Dioxide 26 Anion Gap 6 L BUN 18 Creatinine 1.0 Creat Clearance w eGFR 57.35 Random Glucose 83 Calcium 7.7 L Total Bilirubin 0.2 AST 8 L ALT 16 Alkaline Phosphatase 87 Total Protein 6.3 L Albumin 2.8 L RPR Titer Nonreactive lab noted low calcium Assessment: 06/02/18 12:30 withdrawal sx Plan: continue detox calcium supplement
[2018-06-02] MEDS: CALCIUM 250MG/VIT-D 125 UNITS 1 COMBO TABLET PO SCH ×2 (13:24→22:32)
[2018-06-02] MEDS: IBUPROFEN 400 MG TABLET (FP) PO PRN (17:45)
[2018-06-02] MEDS: THIAMINE HCL 100 MG TABLET (FP) PO SCH (22:32)
[2018-06-02 22:58] LABS: URINE APPEARANCE TURBID; URINE BILIRUBIN NEGATIVE (<2.0 mg/dL); URINE COLOR AMBER; URINE GLUCOSE (UA) NEGATIVE (NEGATIVE); URINE KETONE NEGATIVE (NEGATIVE); URINE LEUK ESTERASE NEGATIVE (NEGATIVE); URINE NITRITE NEGATIVE (NEGATIVE); URINE PROTEIN NEGATIVE (NEGATIVE); URINE UROBILINOGEN NEGATIVE mg/dL (0.2-1.0)
[2018-06-03] MEDS: IBUPROFEN 400 MG TABLET (FP) PO PRN ×2 (03:51→15:28)
[2018-06-03] MEDS: METHADONE HCL 10 MG TABLET PO SCH (05:41)
[2018-06-03] MEDS: chlordiazePOXIDE HCL 10 MG CAPSULE PO SCH ×2 (05:41→17:53)
[2018-06-03] MEDS: TRIAMCINOLONE ACET 0.1% OINT 15 GM TUBE TP SCH ×3 (05:46→22:44)
[2018-06-03] MEDS: PRENATAL VITAMINS W/ FOLIC ACID TABLET (FP) PO SCH (10:15)
[2018-06-03] MEDS: NICOTINE 14 MG/24 HOURS TOPICAL PATCH TD SCH (10:15)
[2018-06-03] MEDS: CALCIUM 250MG/VIT-D 125 UNITS 1 COMBO TABLET PO SCH ×2 (10:15→22:44)
[2018-06-03] MEDS: HYDROXYCHLOROQUINE SO4 200 MG TABLET (FP) PO SCH (10:15)
[2018-06-03] MEDS: amLODIPine BESYLATE 10 MG TABLET (FP) PO SCH (10:15)
[2018-06-03] MEDS: MINERAL OIL/PETROLAT/WATER TOPICAL CREAM 113 GM JAR TP SCH (10:15)
--- NOTE | 2018-06-03 11:55 | PN ---
[facility] CIWA - CIWA Score Nausea/Vomitin-No Nausea/No Vomiting Muscle Tremors: 1-None Visible, but [place] Anxiety: 0-No Anxiety, at Ease Agitation: 1-Slight > Activity Paroxysmal Sweats: No Perspiration Orientation: 0-Oriented Tacttile Disturbances: 0-None Auditory Disturbances: 0-None Visual Disturbances: 0-None Headache: 1-Very Mild CIWA-Ar Total Score: 3 BHS Progress Note (SOAP) Subjective: feeling better less tremor mild sweating social with peers in day room discuss aftercare with staff patient is doing well Objective: 06/03/18 11:57 Vital Signs Temperature 96.8 F L 06/03/18 09:27 Pulse Rate 72 06/03/18 09:27 Respiratory Rate 16 06/03/18 09:27 Blood Pressure 115/79 06/03/18 09:27 O2 Sat by Pulse Oximetry (%) Laboratory Last Values WBC 4.1 K/mm3 (4.0-10.0) 06/01/18 07:35 RBC 4.09 M/mm3 (3.60-5.2) 06/01/18 07:35 Hgb 13.1 GM/dL (10.7-15.3) 06/01/18 07:35 Hct 39.1 % (32.4-45.2) 06/01/18 07:35 MCV 95.7 fl (80-96) 06/01/18 07:35 MCH 32.0 pg (25.7-33.7) 06/01/18 07:35 MCHC 33.5 g/dl (32.0-36.0) 06/01/18 07:35 RDW 14.3 % (11.6-15.6) 06/01/18 07:35 Plt Count 192 K/MM3 (134-434) 06/01/18 07:35 MPV 9.8 fl (7.5-11.1) 06/01/18 07:35 Sodium 145 mmol/L (136-145) 06/01/18 07:35 Potassium 3.8 mmol/L (3.5-5.1) 06/01/18 07:35 Chloride 113 mmol/L (98-107) H 06/01/18 07:35 Carbon Dioxide 26 mmol/L (21-32) 06/01/18 07:35 Anion Gap 6 MMOL/L (8-16) L 06/01/18 07:35 BUN 18 mg/dL (7-18) 06/01/18 07:35 Creatinine 1.0 mg/dL (0.55-1.3) 06/01/18 07:35 Creat Clearance w eGFR 57.35 (>60) 06/01/18 07:35 Random Glucose 83 mg/dL (74-106) 06/01/18 07:35 Calcium 7.7 mg/dL (8.5-10.1) L 06/01/18 07:35 Total Bilirubin 0.2 mg/dL (0.2-1) 06/01/18 07:35 AST 8 U/L (15-37) L 06/01/18 07:35 ALT 16 U/L (13-61) 06/01/18 07:35 Alkaline Phosphatase 87 U/L (45-117) 06/01/18 07:35 Total Protein 6.3 g/dl (6.4-8.2) L 06/01/18 07:35 Albumin 2.8 g/dl (3.4-5.0) L 06/01/18 07:35 Urine Color [place] 06/02/18 22:50 Urine Appearance Turbid 06/02/18 22:50 Urine pH 5.0 (5.0-8.0) 06/02/18 22:50 Ur Specific [place] 1.021 (1.010-1.035) 06/02/18 22:50 Urine Protein Negative (NEGATIVE) 06/02/18 22:50 Urine Glucose (UA) Negative (NEGATIVE) 06/02/18 22:50 Urine Ketones Negative (NEGATIVE) 06/02/18 22:50 Urine Blood Negative (NEGATIVE) 06/02/18 22:50 Urine Nitrite Negative (NEGATIVE) 06/02/18 22:50 Urine Bilirubin Negative (<2.0 mg/dL) 06/02/18 22:50 Urine Urobilinogen Negative mg/dL (0.2-1.0) 06/02/18 22:50 Ur Leukocyte Esterase Negative (NEGATIVE) 06/02/18 22:50 RPR Titer Nonreactive (NONREACTIVE) 06/01/18 07:35 lab noted continue calcium 06/03/18 11:58 06/03/18 11:59 Assessment: 06/03/18 12:00 mild withdrawal sx Plan: continue detox
[2018-06-03] MEDS: THIAMINE HCL 100 MG TABLET (FP) PO SCH (22:45)
[2018-06-04] MEDS: HYDROXYCHLOROQUINE SO4 200 MG TABLET (FP) PO SCH ×2 (00:27→10:57)
[2018-06-04] MEDS: TRIAMCINOLONE ACET 0.1% OINT 15 GM TUBE TP SCH ×2 (06:08→14:48)
[2018-06-04] MEDS: METHADONE HCL 10 MG TABLET PO SCH (06:08)
[2018-06-04] MEDS: IBUPROFEN 400 MG TABLET (FP) PO PRN (06:08)
[2018-06-04] MEDS: chlordiazePOXIDE HCL 10 MG CAPSULE PO SCH (06:08)
[2018-06-04 07:00] VITALS: BP 117/73; PULSE 88; TEMP 99.2
[2018-06-04] MEDS: NICOTINE 14 MG/24 HOURS TOPICAL PATCH TD SCH (10:53)
[2018-06-04] MEDS: CALCIUM 250MG/VIT-D 125 UNITS 1 COMBO TABLET PO SCH (10:53)
[2018-06-04] MEDS: amLODIPine BESYLATE 10 MG TABLET (FP) PO SCH (10:53)
[2018-06-04] MEDS: PRENATAL VITAMINS W/ FOLIC ACID TABLET (FP) PO SCH (10:53)
[2018-06-04] MEDS: MINERAL OIL/PETROLAT/WATER TOPICAL CREAM 113 GM JAR TP SCH (10:58)
--- NOTE | 2018-06-04 15:38 | DS ---
[facility] Detox Discharge Summary Admission Date: 05/31/18 Discharge Date: 06/04/18 - History Present History: Alcohol Dependence Additional Comments: 58 years old female admitted on 05/31/18 for alcohol withdrawal stabilization completed detox regimen aftercare Dr richards - Physical Exam Results Vital Signs: Vital Signs Temperature 99.2 F 06/04/18 07:00 Pulse Rate 88 06/04/18 07:00 Respiratory Rate 18 06/04/18 07:00 Blood Pressure 117/73 06/04/18 07:00 O2 Sat by Pulse Oximetry (%) Pertinent Admission Physical Exam Findings: alcohol withdrawal sx Laboratory Last Values WBC 4.1 K/mm3 (4.0-10.0) 06/01/18 07:35 RBC 4.09 M/mm3 (3.60-5.2) 06/01/18 07:35 Hgb 13.1 GM/dL (10.7-15.3) 06/01/18 07:35 Hct 39.1 % (32.4-45.2) 06/01/18 07:35 MCV 95.7 fl (80-96) 06/01/18 07:35 MCH 32.0 pg (25.7-33.7) 06/01/18 07:35 MCHC 33.5 g/dl (32.0-36.0) 06/01/18 07:35 RDW 14.3 % (11.6-15.6) 06/01/18 07:35 Plt Count 192 K/MM3 (134-434) 06/01/18 07:35 MPV 9.8 fl (7.5-11.1) 06/01/18 07:35 Sodium 145 mmol/L (136-145) 06/01/18 07:35 Potassium 3.8 mmol/L (3.5-5.1) 06/01/18 07:35 Chloride 113 mmol/L (98-107) H 06/01/18 07:35 Carbon Dioxide 26 mmol/L (21-32) 06/01/18 07:35 Anion Gap 6 MMOL/L (8-16) L 06/01/18 07:35 BUN 18 mg/dL (7-18) 06/01/18 07:35 Creatinine 1.0 mg/dL (0.55-1.3) 06/01/18 07:35 Creat Clearance w eGFR 57.35 (>60) 06/01/18 07:35 Random Glucose 83 mg/dL (74-106) 06/01/18 07:35 Calcium 7.7 mg/dL (8.5-10.1) L 06/01/18 07:35 Total Bilirubin 0.2 mg/dL (0.2-1) 06/01/18 07:35 AST 8 U/L (15-37) L 06/01/18 07:35 ALT 16 U/L (13-61) 06/01/18 07:35 Alkaline Phosphatase 87 U/L (45-117) 06/01/18 07:35 Total Protein 6.3 g/dl (6.4-8.2) L 06/01/18 07:35 Albumin 2.8 g/dl (3.4-5.0) L 06/01/18 07:35 Urine Color [place]lie 06/02/18 22:50 Urine Appearance Turbid 06/02/18 22:50 Urine pH 5.0 (5.0-8.0) 06/02/18 22:50 Ur Specific [place] 1.021 (1.010-1.035) 06/02/18 22:50 Urine Protein Negative (NEGATIVE) 06/02/18 22:50 Urine Glucose (UA) Negative (NEGATIVE) 06/02/18 22:50 Urine Ketones Negative (NEGATIVE) 06/02/18 22:50 Urine Blood Negative (NEGATIVE) 06/02/18 22:50 Urine Nitrite Negative (NEGATIVE) 06/02/18 22:50 Urine Bilirubin Negative (<2.0 mg/dL) 06/02/18 22:50 Urine Urobilinogen Negative mg/dL (0.2-1.0) 06/02/18 22:50 Ur Leukocyte Esterase Negative (NEGATIVE) 06/02/18 22:50 RPR Titer Nonreactive (NONREACTIVE) 06/01/18 07:35 lab noted - Treatment Hospital Course: Detox Protocol Followed, Detoxed Safely, Responded well, Discharged Condition Good, Rehab Referral Accepted Patient has Accepted a Rehab Referral to: dr. cain - Medication Discharge Medications: Ambulatory Orders Hydroxychloroquine So4 [Plaquenil -] 200 mg PO BID 08/20/13 Citalopram Hydrobromide [Celexa -] 20 mg PO DAILY #30 tablet 03/11/17 Quetiapine Fumarate [Seroquel -] 400 mg PO HS #30 tablet 03/11/17 traZODone HCL [Desyrel -] 150 mg PO HS #30 tablet 03/11/17 traZODone HCL [Desyrel -] 150 mg PO HS #30 tablet 03/12/17 Trazodone HCl 150 mg PO HS #30 tablet 03/13/17 Amlodipine Besylate 1 tab PO DAILY #14 tablet 06/03/18 - Diagnosis (1) Alcohol dependence with uncomplicated withdrawal Current Visit: Yes Status: Acute (2) Essential (primary) hypertension Current Visit: Yes Status: Chronic (3) Hypothyroidism Current Visit: Yes Status: Chronic Qualifiers: Hypothyroidism type: unspecified Qualified Code(s): E03.9 - Hypothyroidism , unspecified (4) Nicotine dependence Current Visit: Yes Status: Acute Qualifiers: Nicotine product type: cigarettes Substance use status: in withdrawal Qualified Code(s): F17.213 - Nicotine dependence, cigarettes, with withdrawal - AMA Did Patient Leave Against Medical Advice: No
== END 2018-06-04 15:44 | disposition home or self-care (01) | DRG 773 ==
LOC: YASAS 01:05 → Y3N 02:31
PROVIDERS: ADMIT Surgery; ATTEND Surgery
PROC: HZ2ZZZZ Detoxification Services for Substance Abuse Treatment (ICD-10-PCS; principal; 2018-05-31)
DX: F10.230 Alcohol dependence with withdrawal, uncomplicated (principal); F14.20 Cocaine dependence, uncomplicated; F11.20 Opioid dependence, uncomplicated; F17.213 Nicotine dependence, cigarettes, with withdrawal; I10 Essential (primary) hypertension; E03.9 Hypothyroidism, unspecified; E83.51 Hypocalcemia; L85.3 Xerosis cutis; L30.9 Dermatitis, unspecified; R40.4 Transient alteration of awareness; Z86.59 Personal history of other mental and behavioral disorders; Z91.19 Patient's noncompliance with other medical treatment and regimen; Z99.3 Dependence on wheelchair
CPT/HCPCS: 36415; 80053; 81003; 85027; 86593

== ENCOUNTER 2018-08-01 17:11 | Inpatient (IN) | payer OTHER ==
[2018-08-01 19:48] VITALS: BMI 21.9
--- NOTE | 2018-08-01 21:20 | HP ---
CIWA Score Nausea/Vomitin-No Nausea/No Vomiting Muscle Tremors: 4-Moderate,w/Arms Extend Anxiety: 3 Agitation: 3 Paroxysmal Sweats: 3 (Increased facial moisture) Orientation: 1-Uncertain about Date Tacttile Disturbances: 0-None Auditory Disturbances: 0-None Visual Disturbances: 0-None Headache: 0-None Present CIWA-Ar Total Score: 14 - Admission Criteria OAS Guidelines: Admission for Medically Managed Detox: Requires at least one of the followin. CIWA greater than 12 2. Seizures within the past 24 hours 3. Delirium tremens within the past 24 hours 4. Hallucinations within the past 24 hours 5. Acute intervention needed for co occurring medical disorder 6. Acute intervention needed for co occurring psychiatric disorder 7. Severe withdrawal that cannot be handled at a lower level of care (continued vomiting, continued diarrhea, abnormal vital signs) requiring intravenous medication and/or fluids 8. Patient presents the following: CIWA greater than 12 Admission Criteria Met: Admission criteria met Admission ROS [facility] Chief Complaint: Having Alcohol withdrawal. Allergies/Adverse Reactions: Allergies Allergy/AdvReac Type Severity Reaction Status Date / Time No Known Allergies Allergy Verified 08/01/18 19:35 History of Present Illness: Here for alcohol detox. Alcohol use began at age 22. Cocaine use began at age 23. Heroin use disorder began at age 23. Stopped using heroin 2 years ago when started OTP. Currently on methadone 20 mg PO daily at the [facility]. States last medicated today. States B are in the [facility]. Needs dose verification. Marijuana denies use. Denies Hx. seizures, blackouts, overdoses. PMHx: Lupus, Psoriasis, HTN, Abscess on (L) ankle drained 3 weeks ago @ . [place] - did not f/u. MHHx: Bipolar. Depression. Last Provider visit @ [facility]. Denies thoughts of harming self or others. Patient informed unable to receive Oxycodone. Informed will order ibuprofen and Tylenol and verbalizes an understanding. Patient Name: Nati Sorenson Date: 1960 Address: [address] [place] [address] Sex: Female Rx Written Rx Dispensed Drug Quantity Days Supply Prescriber Name 07/29/2018 07/29/2018 oxycodone hcl 30 mg tablet 120 30 Enu, C 06/20/2018 06/21/2018 oxycodone hcl 30 mg tablet 120 30 Emma Lairdcasey 03/28/2018 03/29/2018 oxycodone hcl 30 mg tablet 120 30 Eitan Josephine 02/25/2018 02/25/2018 oxycodone hcl 30 mg tablet 120 30 Enu, Daniela MORRIS 01/23/2018 01/24/2018 oxycodone hcl 30 mg tablet 120 30 Enu, Daniela MORRIS 12/24/2017 12/27/2017 oxycodone hcl 30 mg tablet 120 30 Enu, Daniela MORRIS 11/22/2017 11/30/2017 oxycodone hcl 30 mg tablet 90 30 Enu, Daniela MORRIS 10/24/2017 10/26/2017 oxycodone hcl 30 mg tablet 120 30 Enu, Daniela MORRIS 09/27/2017 09/27/2017 oxycodone hcl 30 mg tablet 120 30 Enu, Daniela MORRIS 08/29/2017 08/29/2017 oxycodone hcl 30 mg tablet 120 30 Enu, Daniela MORRIS Patient Name: Nati Sorenson Date: 1960 Address: [address] [place] [address] Sex: Female Rx Written Rx Dispensed Drug Quantity Days Supply Prescriber Name 05/20/2018 05/28/2018 oxycodone hcl 30 mg tablet 120 30 Enu, Daniela MORRIS 04/22/2018 04/28/2018 oxycodone hcl 30 mg tablet 120 30 Enu, Daniela MORRIS Exam Limitations: No Limitations - Ebola screening Have you traveled outside of the country in the last 21 days: No Have you had contact with anyone from an Ebola affected area: No Have you been sick,other than usual withdrawal symptoms: No (Denies recent exposure to measles. ) Do you have a fever: No - Review of Systems Constitutional: Diaphoresis EENT: reports: Blurred Vision Respiratory: reports: No Symptoms reported Cardiac: reports: No Symptoms Reported GI: reports: No Symptoms Reported : reports: No Symptoms Reported Musculoskeletal: reports: No Symptoms Reported Integumentary: reports: Pruritus (Picking at skin), Rash (States told had abscess that was drained) Neuro: reports: Tremors Endocrine: reports: No Symptoms Reported Hematology: reports: No Symptoms Reported Psychiatric: reports: Agitated, Anxious, Depressed (Denies thoughts of harming self or others.), Disorientated (unsure of day) Other Systems: Reviewed and Negative Patient History - Patient Medical History Hx Anemia: No Hx Asthma: No Hx Chronic Obstructive Pulmonary Disease (COPD): No Hx Cancer: No Hx Cardiac Disorders: No Hx Congestive Heart Failure: No Hx Hypertension: No Hx Hypercholesterolemia: No Hx Pacemaker: No HX Cerebrovascular Accident: No Hx Seizures: No Hx Dementia: No Hx Diabetes: No Hx Gastrointestinal Disorders: No Hx Liver Disease: No Hx Genitourinary Disorders: No Hx Sexually Transmitted Disorders: No Hx Renal Disease (ESRD): No Hx Thyroid Disease: Yes Hx Human Immunodeficiency Virus (HIV): No Hx Hepatitis C: No Hx Depression: Yes Hx Suicide Attempt: No Hx Bipolar Disorder: Yes Hx Schizophrenia: No - Patient Surgical History Past Surgical History: No Hx Neurologic Surgery: No Hx Cataract Extraction: No Hx Cardiac Surgery: No Hx Lung Surgery: No Hx Breast Surgery: No Hx Breast Biopsy: No Hx Abdominal Surgery: No Hx Appendectomy: No Hx Cholecystectomy: No Hx Genitourinary Surgery: No Hx Section: No Hx Orthopedic Surgery: No Hx Hysterectomy: No Anesthesia Reaction: No - PPD History Previous Implant?: Yes Documented Results: Negative w/proof Implanted On Prior R Admission?: Yes Date: 06/02/18 Results: 0MM PPD to be Administered?: No - Reproductive History Last Menstrual Period: 08/21/10 - Smoking Cessation Smoking history: Current every day smoker Have you smoked in the past 12 months: Yes Aproximately how many cigarettes per day: 2 Cigars Per Day: 0 Hx Chewing Tobacco Use: No Initiated information on smoking cessation: Yes 'Breaking Loose' booklet given: 08/01/18 - Substance & Tx. History Hx Alcohol Use: Yes Hx Substance Use: Yes Substance Use Type: Alcohol, Cocaine, Heroin, Marijuana Hx Substance Use Treatment: Yes (detox, rehab, Currently on a MMTP) - Substances abused Alcohol Substance route: Oral Frequency: Daily Amount used: 12 24 oz beers/day Age of first use: 22 Date of last use: 07/31/18 Heroin Substance route: Smoking Frequency: Daily Amount used: 4bags Date of last use: 07/09/16 (Approx date) Cocaine Substance route: Smoking Frequency: Daily Amount used: 3-4 bags Age of first use: 23 Date of last use: 08/01/18 Family Disease History - Family Disease History Family Disease History: Diabetes: Mother, Heart Disease: Father, CA: Sister Admission Physical Exam S - Vital Signs Vital Signs: Vital Signs - 24 hr 08/01/18 19:41 Temperature 97.8 F Pulse Rate 69 Respiratory 16 Rate Blood Pressure 149/81 - Physical General Appearance: Yes: Mild Distress, Tremorous, Sweating, Anxious HEENTM: Yes: EOMI, Hearing grossly Normal, FRANCOISE (Pupils = 2 mm), Pharynx Normal Respiratory: Yes: Lungs Clear, Normal Breath Sounds, No Respiratory Distress Neck: Yes: No masses,lesions,Nodules, Supple Breast: Yes: Breast Exam Deferred Cardiology: Yes: Regular Rhythm, S1, S2, Bradycardia, Murmur Abdominal: Yes: Non Tender, Flat, Soft, Increased Bowel Sounds Genitourinary: Yes: Within Normal Limits Back: Yes: Normal Inspection Musculoskeletal: Yes: full range of Motion, Gait Steady Extremities: Yes: Normal Capillary Refill, Tremors, Pedal Edema ((R) foot. Pedal pulses (+)), Other ((L) calf = 12 inches/ (R) caf = 13.5 inches.) Neurological: Yes: embedded nurse II-XII NML intact, Alert, Motor Strength 5/5 Integumentary: Yes: Normal Color, Warm, Diaphoresis (Increased facial moisture) , Rash (Dry, flaky, white patches of skin on (R) porter and both ankle area w/ surrounding erythema.), Pitting Edema ((R) Toes to mid cald), Other (3 open lesions approx 6 mm deep and 2 .5 cm wide w/ yellowish tissue color and w/o drainage; 2 on (R) leg inner malleolus area and 1 on outer malleolus area) Lymphatic: Yes: Within Normal Limits - Diagnostic (1) Abscess or cellulitis of ankle Current Visit: Yes Status: Chronic Comment: (R) leg inner and outer ankle area (2) Alcohol dependence with uncomplicated withdrawal Current Visit: Yes Status: Acute (3) Nicotine dependence Current Visit: Yes Status: Chronic Qualifiers: Nicotine product type: cigarettes Substance use status: in withdrawal Qualified Code(s): F17.213 - Nicotine dependence, cigarettes, with withdrawal (4) Cocaine dependence Current Visit: Yes Status: Chronic Qualifiers: Substance use status: uncomplicated Qualified Code(s): F14.20 - Cocaine dependence, uncomplicated (5) Essential (primary) hypertension Current Visit: Yes Status: Chronic (6) Opioid dependence on agonist therapy Current Visit: Yes Status: Chronic Comment: HELP METHADONE 20 MG PENDING VERIFICATION (7) SLE (systemic lupus erythematosus) Current Visit: Yes Status: Chronic Qualifiers: Systemic lupus erythematosus type: unspecified Systemic lupus erythematosus organ involvement: unspecified Qualified Code(s): M32.9 - Systemic lupus erythematosus, unspecified (8) Murmur, cardiac Current Visit: Yes Status: Chronic (9) Psoriasis Current Visit: Yes Status: Chronic Cleared for Admission S - Detox or Rehab [facility] Level of Care: Medically Managed Detox Regimen/Protocol: Librium Claeared for Rehab Admission: No Breathalyzer - Breathalyzer Breathalyzer: 0 Urine Drug Screen - Test Device Lot number: [id number] Expiration date: 04/16/19 - Control Is test valid?: Yes - Results Drug screen NEGATIVE: No Urine drug screen results: THC-Marijuana, ESTEFANIA-Cocaine, MTD-Methadone Inpatient Rehab Admission - Rehab Decision to Admit Inpatient rehab admission?: No
[2018-08-02] MEDS ORDERED: MELATONIN 5 MG TABLETS PO PRN (01:14)
[2018-08-02] MEDS ORDERED: BISMUTH SUBSALICYLATE 524 MG/30 ML UD PO PRN (01:14)
[2018-08-02] MEDS ORDERED: MENTHOL/PHENOL 1 EACH UD MM PRN (01:14)
[2018-08-02] MEDS ORDERED: MAGNESIUM HYDROX 2400MG/30ML ORAL SUSPENSION 30 ML CUP PO PRN (01:14)
[2018-08-02] MEDS ORDERED: MAG HYDROX/AL HYDROX/SIMETH 30 ML UNIT-DOSE CUP PO PRN (01:14)
[2018-08-02] MEDS ORDERED: PROCHLORPERAZINE MALEATE 5 MG TABLET PO PRN (01:14)
[2018-08-02] MEDS ORDERED: IBUPROFEN 400 MG TABLET (FP) PO PRN (01:14)
[2018-08-02] MEDS ORDERED: MAGNESIUM CITRATE 300 ML BOTTLE PO PRN (01:14)
[2018-08-02] MEDS ORDERED: chlordiazePOXIDE HCL 25 MG CAPSULE PO ONE (01:14)
[2018-08-02] MEDS ORDERED: METHOCARBAMOL 500 MG TABLET PO PRN (01:14)
[2018-08-02] MEDS ORDERED: chlordiazePOXIDE HCL 10 MG CAPSULE PO PRN (01:14)
[2018-08-02] MEDS ORDERED: ACETAMINOPHEN 325 MG TABLET (FP) PO PRN ×2 (01:14)
[2018-08-02] MEDS: chlordiazePOXIDE HCL 25 MG CAPSULE PO SCH ×3 (06:36→22:27)
[2018-08-02] MEDS: CEPHALEXIN MONOHYDRATE 500 MG CAPSULE (UD) PO SCH ×4 (07:04→23:59)
[2018-08-02 10:03] LABS: BILIRUBIN,TOTAL 0.2 mg/dL (0.2-1); CALCIUM 8.3 mg/dL (8.5-10.1); CREATININE 0.8 mg/dL (0.55-1.3); POTASSIUM 4.3 mmol/L (3.5-5.1); TOT PROT 6.7 g/dl (6.4-8.2)
[2018-08-02 10:06] LABS: HEMATOCRIT 37.5 % (32.4-45.2); HEMOGLOBIN 11.8 GM/dL (10.7-15.3); MCH 30.1 pg (25.7-33.7); MCHC 31.4 g/dl (32.0-36.0); MEAN CELL VOLUME 95.8 fl (80-96); PLATELET COUNT 192 K/MM3 (134-434); RBC 3.92 M/mm3 (3.60-5.2); RDW 14.9 % (11.6-15.6); WHITE BLOOD COUNT 4.4 K/mm3 (4.0-10.0)
[2018-08-02] MEDS: amLODIPine BESYLATE 10 MG TABLET (FP) PO SCH (10:32)
[2018-08-02] MEDS: PRENATAL VITAMINS W/ FOLIC ACID TABLET (FP) PO SCH (10:32)
--- NOTE | 2018-08-02 10:52 | EKG ---
Test Reason : Blood Pressure : / mmHG Vent. Rate : 053 BPM Atrial Rate : 053 BPM P-R Int : 140 ms QRS Dur : 072 ms QT Int : 466 ms P-R-T Axes : 014 -10 024 degrees QTc Int : 437 ms SINUS BRADYCARDIA OTHERWISE NORMAL ECG WHEN COMPARED WITH ECG OF 11-MAR-2017 13:37, T WAVE AMPLITUDE HAS INCREASED IN LATERAL LEADS Confirmed by VONDA GRIMM MD ([id number]) on 08/02/2018 10:52:16 AM Referred By: ROSA Confirmed By:VONDA GRIMM MD
[2018-08-02 12:38] LABS: PH,URINE 5.5 (5.0-8.0); URINE APPEARANCE CLOUDY; URINE BILIRUBIN NEGATIVE (NEGATIVE); URINE COLOR YELLOW; URINE GLUCOSE (UA) NEGATIVE (NEGATIVE); URINE KETONE NEGATIVE (NEGATIVE); URINE LEUK ESTERASE NEGATIVE (NEGATIVE); URINE NITRITE NEGATIVE (NEGATIVE); URINE PROTEIN TRACE (NEGATIVE); URINE UROBILINOGEN 0.2 mg/dL (0.2-1.0)
--- NOTE | 2018-08-02 13:27 | PN ---
[facility] CIWA - CIWA Score Nausea/Vomitin-No Nausea/No Vomiting Muscle Tremors: 3 Anxiety: 4-Mod. Anxious/Guarded Agitation: 4-Moderately Restless Paroxysmal Sweats: 1-Minimal Palms Moist Orientation: 0-Oriented Tacttile Disturbances: 0-None Auditory Disturbances: 0-None Visual Disturbances: 0-None Headache: 0-None Present CIWA-Ar Total Score: 12 S Progress Note (SOAP) Subjective: REPORTS ANXIETY, SLIGHT TREMORS,FATIGUE AND SAW PT AMBULATING ON HALLWAY DURING ROUNDS. REPORTS DETOX PROCEEDING WELL AND MEDS EFFECTIVE FOR SYMPTOM CONTROL. Objective: 08/02/18 13:29 Vital Signs 08/02/18 08/02/18 08/02/18 06:12 06:30 09:42 Temperature 96.9 F L 97.8 F Pulse Rate 72 69 Respiratory 18 18 18 Rate Blood Pressure 106/65 153/93 Laboratory Tests 08/02/18 08/02/18 08/02/18 07:45 07:45 09:46 WBC 4.4 RBC 3.92 Hgb 11.8 Hct 37.5 MCV 95.8 MCH 30.1 MCHC 31.4 L RDW 14.9 Plt Count 192 MPV 10.0 Sodium 147 H Potassium 4.3 Chloride 115 H Carbon Dioxide 28 Anion Gap 4 L BUN 25 H Creatinine 0.8 Est GFR (CKD-EPI)AfAm 95.52 Est GFR (CKD-EPI)NonAf 82.42 Random Glucose 75 Calcium 8.3 L Total Bilirubin 0.2 AST 10 L ALT 16 Alkaline Phosphatase 82 Total Protein 6.7 Albumin 3.0 L Urine Color Urine Appearance Urine pH Ur Specific [place] Urine Protein Urine Glucose (UA) Urine Ketones Urine Blood Urine Nitrite Urine Bilirubin Urine Urobilinogen Ur Leukocyte Esterase POC Urine HCG, Qual Negative 08/02/18 09:46 WBC RBC Hgb Hct MCV MCH MCHC RDW Plt Count MPV Sodium Potassium Chloride Carbon Dioxide Anion Gap BUN Creatinine Est GFR (CKD-EPI)AfAm Est GFR (CKD-EPI)NonAf Random Glucose Calcium Total Bilirubin AST ALT Alkaline Phosphatase Total Protein Albumin Urine Color Yellow Urine Appearance Cloudy Urine pH 5.5 Ur Specific [place] 1.028 Urine Protein Trace Urine Glucose (UA) Negative Urine Ketones Negative Urine Blood Negative Urine Nitrite Negative Urine Bilirubin Negative Urine Urobilinogen 0.2 Ur Leukocyte Esterase Negative POC Urine HCG, Qual Assessment: 08/02/18 13:30 WITHDRAWAL SX Plan: CONTINUE DETOX. INCREASE PO FLUIDS.
[2018-08-02] MEDS: HYDROXYCHLOROQUINE SO4 200 MG TABLET (FP) PO SCH ×2 (13:36→22:27)
[2018-08-02] MEDS: BETAMETHASONE VALERATE 0.1% CREAM 15 GM TUBE TP SCH ×2 (15:35→22:26)
[2018-08-02] MEDS: THIAMINE HCL 100 MG TABLET (FP) PO SCH (23:59)
[2018-08-03] MEDS: chlordiazePOXIDE 5 MG CAPSULE PO SCH ×3 (06:12→21:44)
[2018-08-03] MEDS: CEPHALEXIN MONOHYDRATE 500 MG CAPSULE (UD) PO SCH ×3 (07:08→17:51)
[2018-08-03] MEDS: BETAMETHASONE VALERATE 0.1% CREAM 15 GM TUBE TP SCH ×2 (10:21→21:45)
[2018-08-03] MEDS: HYDROXYCHLOROQUINE SO4 200 MG TABLET (FP) PO SCH ×2 (10:21→21:45)
[2018-08-03] MEDS: amLODIPine BESYLATE 10 MG TABLET (FP) PO SCH (10:21)
[2018-08-03] MEDS: PRENATAL VITAMINS W/ FOLIC ACID TABLET (FP) PO SCH (10:21)
[2018-08-03] MEDS: METHADONE HCL 10 MG TABLET PO SCH (10:21)
--- NOTE | 2018-08-03 13:23 | PN ---
S CIWA - CIWA Score Nausea/Vomitin-Mild Nausea/No Vomiting Muscle Tremors: 2 Anxiety: 2 Agitation: 2 Paroxysmal Sweats: No Perspiration Orientation: 0-Oriented Tacttile Disturbances: 0-None Auditory Disturbances: 0-None Visual Disturbances: 0-None Headache: 1-Very Mild CIWA-Ar Total Score: 8 BHS Progress Note (SOAP) Subjective: right ankle talus open wound no exudate mild swell and erythema continue cephalexin Objective: 08/03/18 13:23 Vital Signs Temperature 98.4 F 08/03/18 09:14 Pulse Rate 68 08/03/18 09:14 Respiratory Rate 18 08/03/18 09:14 Blood Pressure 140/82 08/03/18 09:14 O2 Sat by Pulse Oximetry (%) Laboratory Last Values WBC 4.4 K/mm3 (4.0-10.0) 08/02/18 07:45 RBC 3.92 M/mm3 (3.60-5.2) 08/02/18 07:45 Hgb 11.8 GM/dL (10.7-15.3) 08/02/18 07:45 Hct 37.5 % (32.4-45.2) 08/02/18 07:45 MCV 95.8 fl (80-96) 08/02/18 07:45 MCH 30.1 pg (25.7-33.7) 08/02/18 07:45 MCHC 31.4 g/dl (32.0-36.0) L 08/02/18 07:45 RDW 14.9 % (11.6-15.6) 08/02/18 07:45 Plt Count 192 K/MM3 (134-434) 08/02/18 07:45 MPV 10.0 fl (7.5-11.1) 08/02/18 07:45 Sodium 147 mmol/L (136-145) H 08/02/18 07:45 Potassium 4.3 mmol/L (3.5-5.1) 08/02/18 07:45 Chloride 115 mmol/L (98-107) H 08/02/18 07:45 Carbon Dioxide 28 mmol/L (21-32) 08/02/18 07:45 Anion Gap 4 MMOL/L (8-16) L 08/02/18 07:45 BUN 25 mg/dL (7-18) H 08/02/18 07:45 Creatinine 0.8 mg/dL (0.55-1.3) 08/02/18 07:45 Est GFR (CKD-EPI)AfAm 95.52 08/02/18 07:45 Est GFR (CKD-EPI)NonAf 82.42 08/02/18 07:45 Random Glucose 75 mg/dL (74-106) 08/02/18 07:45 Calcium 8.3 mg/dL (8.5-10.1) L 08/02/18 07:45 Total Bilirubin 0.2 mg/dL (0.2-1) 08/02/18 07:45 AST 10 U/L (15-37) L 08/02/18 07:45 ALT 16 U/L (13-61) 08/02/18 07:45 Alkaline Phosphatase 82 U/L (45-117) 08/02/18 07:45 Total Protein 6.7 g/dl (6.4-8.2) 08/02/18 07:45 Albumin 3.0 g/dl (3.4-5.0) L 08/02/18 07:45 Urine Color Yellow 08/02/18 09:46 Urine Appearance Cloudy 08/02/18 09:46 Urine pH 5.5 (5.0-8.0) 08/02/18 09:46 Ur Specific [place] 1.028 (1.010-1.035) 08/02/18 09:46 Urine Protein Trace (NEGATIVE) 08/02/18 09:46 Urine Glucose (UA) Negative (NEGATIVE) 08/02/18 09:46 Urine Ketones Negative (NEGATIVE) 08/02/18 09:46 Urine Blood Negative (NEGATIVE) 08/02/18 09:46 Urine Nitrite Negative (NEGATIVE) 08/02/18 09:46 Urine Bilirubin Negative (NEGATIVE) 08/02/18 09:46 Urine Urobilinogen 0.2 mg/dL (0.2-1.0) 08/02/18 09:46 Ur Leukocyte Esterase Negative (NEGATIVE) 08/02/18 09:46 POC Urine HCG, Qual Negative 08/02/18 09:46 RPR Titer Nonreactive (NONREACTIVE) 08/02/18 07:45 lab noted Assessment: 08/03/18 13:24 withdrawal sx Plan: continue detox
[2018-08-03] MEDS: THIAMINE HCL 100 MG TABLET (FP) PO SCH (21:44)
[2018-08-04] MEDS: CEPHALEXIN MONOHYDRATE 500 MG CAPSULE (UD) PO SCH ×5 (00:01→23:15)
[2018-08-04] MEDS ORDERED: chlordiazePOXIDE HCL 10 MG CAPSULE PO PRN (05:00)
[2018-08-04] MEDS: chlordiazePOXIDE HCL 10 MG CAPSULE PO SCH ×3 (05:41→21:33)
[2018-08-04] MEDS: BETAMETHASONE VALERATE 0.1% CREAM 15 GM TUBE TP SCH ×2 (10:49→22:29)
[2018-08-04] MEDS: amLODIPine BESYLATE 10 MG TABLET (FP) PO SCH (10:49)
[2018-08-04] MEDS: METHADONE HCL 10 MG TABLET PO SCH (10:49)
[2018-08-04] MEDS: HYDROXYCHLOROQUINE SO4 200 MG TABLET (FP) PO SCH ×2 (10:49→22:27)
[2018-08-04] MEDS: PRENATAL VITAMINS W/ FOLIC ACID TABLET (FP) PO SCH (10:50)
--- NOTE | 2018-08-04 14:52 | PN ---
S CIWA - CIWA Score Nausea/Vomitin-Mild Nausea/No Vomiting Muscle Tremors: 1-None Visible, but [place] Anxiety: 1-Mildly Anxious Agitation: 1-Slight > Activity Paroxysmal Sweats: No Perspiration Orientation: 0-Oriented Tacttile Disturbances: 0-None Auditory Disturbances: 0-None Visual Disturbances: 0-None Headache: 0-None Present CIWA-Ar Total Score: 4 BHS Progress Note (SOAP) Subjective: feeling better social with peers in day room discuss aftercare with staff wants to maintain sober Objective: 08/04/18 14:54 Vital Signs Temperature 96.5 F L 08/04/18 13:42 Pulse Rate 83 08/04/18 13:42 Respiratory Rate 18 08/04/18 13:42 Blood Pressure 116/80 08/04/18 13:42 O2 Sat by Pulse Oximetry (%) Laboratory Last Values WBC 4.4 K/mm3 (4.0-10.0) 08/02/18 07:45 RBC 3.92 M/mm3 (3.60-5.2) 08/02/18 07:45 Hgb 11.8 GM/dL (10.7-15.3) 08/02/18 07:45 Hct 37.5 % (32.4-45.2) 08/02/18 07:45 MCV 95.8 fl (80-96) 08/02/18 07:45 MCH 30.1 pg (25.7-33.7) 08/02/18 07:45 MCHC 31.4 g/dl (32.0-36.0) L 08/02/18 07:45 RDW 14.9 % (11.6-15.6) 08/02/18 07:45 Plt Count 192 K/MM3 (134-434) 08/02/18 07:45 MPV 10.0 fl (7.5-11.1) 08/02/18 07:45 Sodium 147 mmol/L (136-145) H 08/02/18 07:45 Potassium 4.3 mmol/L (3.5-5.1) 08/02/18 07:45 Chloride 115 mmol/L (98-107) H 08/02/18 07:45 Carbon Dioxide 28 mmol/L (21-32) 08/02/18 07:45 Anion Gap 4 MMOL/L (8-16) L 08/02/18 07:45 BUN 25 mg/dL (7-18) H 08/02/18 07:45 Creatinine 0.8 mg/dL (0.55-1.3) 08/02/18 07:45 Est GFR (CKD-EPI)AfAm 95.52 08/02/18 07:45 Est GFR (CKD-EPI)NonAf 82.42 08/02/18 07:45 Random Glucose 75 mg/dL (74-106) 08/02/18 07:45 Calcium 8.3 mg/dL (8.5-10.1) L 08/02/18 07:45 Total Bilirubin 0.2 mg/dL (0.2-1) 08/02/18 07:45 AST 10 U/L (15-37) L 08/02/18 07:45 ALT 16 U/L (13-61) 08/02/18 07:45 Alkaline Phosphatase 82 U/L (45-117) 08/02/18 07:45 Total Protein 6.7 g/dl (6.4-8.2) 08/02/18 07:45 Albumin 3.0 g/dl (3.4-5.0) L 08/02/18 07:45 Urine Color Yellow 08/02/18 09:46 Urine Appearance Cloudy 08/02/18 09:46 Urine pH 5.5 (5.0-8.0) 08/02/18 09:46 Ur Specific [place] 1.028 (1.010-1.035) 08/02/18 09:46 Urine Protein Trace (NEGATIVE) 08/02/18 09:46 Urine Glucose (UA) Negative (NEGATIVE) 08/02/18 09:46 Urine Ketones Negative (NEGATIVE) 08/02/18 09:46 Urine Blood Negative (NEGATIVE) 08/02/18 09:46 Urine Nitrite Negative (NEGATIVE) 08/02/18 09:46 Urine Bilirubin Negative (NEGATIVE) 08/02/18 09:46 Urine Urobilinogen 0.2 mg/dL (0.2-1.0) 08/02/18 09:46 Ur Leukocyte Esterase Negative (NEGATIVE) 08/02/18 09:46 POC Urine HCG, Qual Negative 08/02/18 09:46 RPR Titer Nonreactive (NONREACTIVE) 08/02/18 07:45 lab noted Assessment: 08/04/18 14:55 alcohol withdrawal sx Plan: continue detox
--- NOTE | 2018-08-04 18:01 | CONSULT ---
[facility] Psychiatric Consult - Data Date of interview: 08/04/18 Admission source: [facility] Identifying data: This is one of multiple admissions to [facility] for this 58 y/ o AA female self-referred for detoxification (heroin, cocaine, alcohol). Examined on . Patient is single, a mother of eight, domiciled, unemployed and supported on SSI benefits. Substance Abuse History: As per [facility] report on admission. Ms Sorenson is poor historian (somnolent during interview) : Smoking history: Current every day smoker. Have you smoked in the past 12 months: Yes. Aproximately how many cigarettes per day: 2. Cigars Per Day: 0. Hx Chewing Tobacco Use: No. Initiated information on smoking cessation: Yes. 'Breaking Loose' booklet given : 08/01/18. - Substance & Tx. History. Hx Alcohol Use: Yes. Hx Substance Use : Yes. Substance Use Type: Alcohol, Cocaine, Heroin, Marijuana. Hx Substance Use Treatment: Yes (detox, rehab, Currently on a MMTP). - Substances abused. * * Alcohol. Substance route: Oral. Frequency: Daily. Amount used: 12 24 oz beers/day. Age of first use: 22. Date of last use: 07/31/18. Heroin. Substance route: Smoking. Frequency: Daily. Amount used: 4bags. Date of last use: 07/09/16 (Approx date). Cocaine. Substance route: Smoking. Frequency : Daily. Amount used: 3-4 bags. Age of first use: 23. Date of last use: 08/01 Medical History: Taken from records : medical history is remarkable for systemic lupus erythematosus (SLE), chronic lumbar pain, hypothyroidism and generalized eczema. Psychiatric History: Patient is moderately sedated. She is falling asleep during the interview. Only able to give bits of personal information. She is already known to this institution. History is extracted from [facility] records (as per my note of 05/31/18) : " patient endorses a history of one psychiatric hospitalization, in 2006, at the [facility] in [facility]. Circumstances of admission : mood dysregulation, hyperactivity, sleep disturbances, deterioration of general functioning, racing thoughts. Diagnosed with Bipolar Disorder. Ms Sorenson reports treatment with various psychotropic medications (valproate, seroquel, trazodone, citalopram, risperidone and other unrecalled drugs). Admits to chronic non-adherence with psychiatric OPD care. " I have not taken my medications for a while ". Patient is known to [facility]. She is currently affiliated with [facility] program in [facility] (on methadone maintenance : 20 mg/day). No reported history of suicide attempts ". Physical/Sexual Abuse/Trauma History: No information at this time. Additional Comment: Urine drug screen results: THC-Marijuana, ESTEFANIA-Cocaine, MTD- Methadone. Noted. Mental Status Exam - Mental Status Exam Alert and Oriented to: Place, Person Cognitive Function: Impaired Patient Appearance: Well Groomed Mood: Euthymic Affect: Appropriate Patient Behavior: Sedated (moderately sedated), Fatigued, Cooperative Speech Pattern: Delayed, Slurred, Garbled (at times) Voice Loudness: Moderately Soft/Quiet Thought Process: Goal Oriented Thought Disorder: Not Present Hallucinations: Denies Suicidal Ideation: Denies Homicidal Ideation: Denies Insight/Judgement: Poor Sleep: Well Appetite: Good (as per self-report) Gait/Station: Other (unsteady gait) Psychiatric Findings - Problem List ([place] 1, 2,3) (1) Sedated due to medication Current Visit: Yes Status: Acute (2) Alcohol dependence with uncomplicated withdrawal Current Visit: Yes Status: Acute (3) Cannabis dependence Current Visit: Yes Status: Chronic (4) Opioid dependence on agonist therapy Current Visit: Yes Status: Chronic Comment: HELP METHADONE 20 MG PENDING VERIFICATION (5) Cocaine dependence Current Visit: Yes Status: Chronic Qualifiers: Substance use status: uncomplicated Qualified Code(s): F14.20 - Cocaine dependence, uncomplicated (6) Nicotine dependence Current Visit: Yes Status: Chronic Qualifiers: Nicotine product type: cigarettes Substance use status: in withdrawal Qualified Code(s): F17.213 - Nicotine dependence, cigarettes, with withdrawal (7) History of bipolar disorder Current Visit: Yes Status: Chronic (8) Non-compliance Current Visit: Yes Status: Chronic Comment: Patient is known for chronic non -adherence to OPD care. - Initial Treatment Plan Initial Treatment Plan: Psychoeducation when patient is fully awake. Continue detoxification protocol. Seroquel, trazodone and celexa are placed on HOLD until further orders (noted refills for these drugs, with the exception for seroquel, at [facility] on 07/29/18). Observation.
[2018-08-04] MEDS: THIAMINE HCL 100 MG TABLET (FP) PO SCH (22:27)
[2018-08-05] MEDS: CEPHALEXIN MONOHYDRATE 500 MG CAPSULE (UD) PO SCH ×2 (06:23→11:56)
[2018-08-05] MEDS: chlordiazePOXIDE HCL 10 MG CAPSULE PO SCH (06:23)
[2018-08-05] MEDS: PRENATAL VITAMINS W/ FOLIC ACID TABLET (FP) PO SCH (10:31)
[2018-08-05] MEDS: METHADONE HCL 10 MG TABLET PO SCH (10:31)
[2018-08-05] MEDS: amLODIPine BESYLATE 10 MG TABLET (FP) PO SCH (10:31)
[2018-08-05] MEDS: HYDROXYCHLOROQUINE SO4 200 MG TABLET (FP) PO SCH (10:31)
[2018-08-05] MEDS: BETAMETHASONE VALERATE 0.1% CREAM 15 GM TUBE TP SCH (10:32)
[2018-08-05 13:11] VITALS: BP 122/72; PULSE 75; TEMP 97
--- NOTE | 2018-08-05 15:49 | DS ---
[facility] Summary Admission Date: 08/01/18 Discharge Date: 08/05/18 - History Present History: Alcohol Dependence Additional Comments: 58 years old female admitted on 08/01/18 for alcohol withdrawal stabilization completed detox regimen [facility] - Physical Exam Results Vital Signs: Vital Signs Temperature 97 F L 08/05/18 13:10 Pulse Rate 75 08/05/18 13:10 Respiratory Rate 20 08/05/18 13:10 Blood Pressure 122/72 08/05/18 13:10 O2 Sat by Pulse Oximetry (%) Pertinent Admission Physical Exam Findings: alcohol withdrawal sx Laboratory Last Values WBC 4.4 K/mm3 (4.0-10.0) 08/02/18 07:45 RBC 3.92 M/mm3 (3.60-5.2) 08/02/18 07:45 Hgb 11.8 GM/dL (10.7-15.3) 08/02/18 07:45 Hct 37.5 % (32.4-45.2) 08/02/18 07:45 MCV 95.8 fl (80-96) 08/02/18 07:45 MCH 30.1 pg (25.7-33.7) 08/02/18 07:45 MCHC 31.4 g/dl (32.0-36.0) L 08/02/18 07:45 RDW 14.9 % (11.6-15.6) 08/02/18 07:45 Plt Count 192 K/MM3 (134-434) 08/02/18 07:45 MPV 10.0 fl (7.5-11.1) 08/02/18 07:45 Sodium 147 mmol/L (136-145) H 08/02/18 07:45 Potassium 4.3 mmol/L (3.5-5.1) 08/02/18 07:45 Chloride 115 mmol/L (98-107) H 08/02/18 07:45 Carbon Dioxide 28 mmol/L (21-32) 08/02/18 07:45 Anion Gap 4 MMOL/L (8-16) L 08/02/18 07:45 BUN 25 mg/dL (7-18) H 08/02/18 07:45 Creatinine 0.8 mg/dL (0.55-1.3) 08/02/18 07:45 Est GFR (CKD-EPI)AfAm 95.52 08/02/18 07:45 Est GFR (CKD-EPI)NonAf 82.42 08/02/18 07:45 Random Glucose 75 mg/dL (74-106) 08/02/18 07:45 Calcium 8.3 mg/dL (8.5-10.1) L 08/02/18 07:45 Total Bilirubin 0.2 mg/dL (0.2-1) 08/02/18 07:45 AST 10 U/L (15-37) L 08/02/18 07:45 ALT 16 U/L (13-61) 08/02/18 07:45 Alkaline Phosphatase 82 U/L (45-117) 08/02/18 07:45 Total Protein 6.7 g/dl (6.4-8.2) 08/02/18 07:45 Albumin 3.0 g/dl (3.4-5.0) L 08/02/18 07:45 Urine Color Yellow 08/02/18 09:46 Urine Appearance Cloudy 08/02/18 09:46 Urine pH 5.5 (5.0-8.0) 08/02/18 09:46 Ur Specific Frederic 1.028 (1.010-1.035) 08/02/18 09:46 Urine Protein Trace (NEGATIVE) 08/02/18 09:46 Urine Glucose (UA) Negative (NEGATIVE) 08/02/18 09:46 Urine Ketones Negative (NEGATIVE) 08/02/18 09:46 Urine Blood Negative (NEGATIVE) 08/02/18 09:46 Urine Nitrite Negative (NEGATIVE) 08/02/18 09:46 Urine Bilirubin Negative (NEGATIVE) 08/02/18 09:46 Urine Urobilinogen 0.2 mg/dL (0.2-1.0) 08/02/18 09:46 Ur Leukocyte Esterase Negative (NEGATIVE) 08/02/18 09:46 POC Urine HCG, Qual Negative 08/02/18 09:46 RPR Titer Nonreactive (NONREACTIVE) 08/02/18 07:45 lab noted - Treatment Hospital Course: Detox Protocol Followed, Detoxed Safely, Responded well, Discharged Condition Good, Rehab Referral Accepted Patient has Accepted a [facility] Referral to: [facility] - Medication Discharge Medications: Ambulatory Orders Citalopram Hydrobromide [Celexa -] 20 mg PO DAILY #30 tablet 12/25/17 Quetiapine Fumarate [Seroquel -] 400 mg PO HS #30 tablet 03/11/17 traZODone HCL [Desyrel -] 150 mg PO HS #30 tablet 03/12/17 Amlodipine Besylate 1 tab PO DAILY #14 tablet 08/04/18 Cephalexin Monohydrate [Keflex -] 500 mg PO Q6HPO #10 capsule 08/04/18 Hydroxychloroquine So4 [Plaquenil -] 200 mg PO BID #60 tablet 08/04/18 - Diagnosis (1) Alcohol dependence with uncomplicated withdrawal Status: Acute (2) Essential (primary) hypertension Status: Chronic (3) Opioid dependence on agonist therapy Status: Chronic - AMA Did Patient Leave Against Medical Advice: No
== END 2018-08-05 13:30 | disposition other institution (70) | DRG 773 ==
LOC: YASAS 17:11 → Y3N 23:44
PROVIDERS: ADMIT Surgery; ATTEND Surgery
PROC: HZ2ZZZZ Detoxification Services for Substance Abuse Treatment (ICD-10-PCS; principal; 2018-08-01)
DX: F10.230 Alcohol dependence with withdrawal, uncomplicated (principal); F11.20 Opioid dependence, uncomplicated; F14.20 Cocaine dependence, uncomplicated; F12.20 Cannabis dependence, uncomplicated; F17.213 Nicotine dependence, cigarettes, with withdrawal; F31.9 Bipolar disorder, unspecified; I10 Essential (primary) hypertension; M32.9 Systemic lupus erythematosus, unspecified; E03.9 Hypothyroidism, unspecified; L30.9 Dermatitis, unspecified; R00.1 Bradycardia, unspecified; R01.1 Cardiac murmur, unspecified; Z91.19 Patient's noncompliance with other medical treatment and regimen
CPT/HCPCS: 36415; 80053; 81003; 81025; 85027; 86593; 93005; 93010

== ENCOUNTER 2018-08-05 13:01 | Inpatient (IN) | payer OTHER ==
[2018-08-05] MEDS ORDERED: LOPERAMIDE HCL 2 MG CAPSULE PO PRN (15:51)
[2018-08-05] MEDS ORDERED: ACETAMINOPHEN 325 MG TABLET (FP) PO PRN (15:51)
[2018-08-05] MEDS ORDERED: IBUPROFEN 400 MG TABLET (FP) PO PRN (15:51)
[2018-08-05] MEDS ORDERED: MAGNESIUM HYDROX 2400MG/30ML ORAL SUSPENSION 30 ML CUP PO PRN (15:51)
[2018-08-05] MEDS ORDERED: NICOTINE POLACRILEX 2 MG GUM BC PRN (15:51)
[2018-08-05] MEDS ORDERED: P-EPHED 60MG/TRIPROLIDI 2.5MG TABLET PO PRN (15:51)
[2018-08-05] MEDS ORDERED: MAG HYDROX/AL HYDROX/SIMETH 30 ML UNIT-DOSE CUP PO PRN (15:51)
[2018-08-05] MEDS ORDERED: MAGNESIUM CITRATE 300 ML BOTTLE PO PRN (15:51)
[2018-08-05] MEDS ORDERED: guaiFENesin 200 MG/10 ML 10 ML UNIT-DOSE CUPS PO PRN (15:51)
[2018-08-05] MEDS ORDERED: MENTHOL/PHENOL 1 EACH UD MM PRN (15:51)
--- NOTE | 2018-08-05 15:51 | HP ---
[facility] Rehab Assess/Revision - Admission History Admitted to Rehab from: [facility] Date of Admission to Rehab: 08/05/18 - Vital signs Vital Signs: Vital Signs Period Temp Pulse Resp BP Sys/Shipley Pulse Ox Last 24 Hr 97.2 F 79 18 118/76 - Findings Detox History & Physical reviewed: Yes Concur with findings: Yes Comments/Additional Findings: transferred from detox to rehab admission as per protocol Inpatient Rehab Admission - Rehab Decision to Admit Inpatient rehab admission?: Yes - Initial Determination Are CD services needed?: Yes Free of communicable disease: Yes Not in need of hospitalization: Yes - Rehab Admission Criteria Previous failed treatment: Yes Poor recovery environment: Yes Comorbidities: Yes Lacks judgement: No Patient is meeting Inpatient Rehab admission criteria:: Yes
[2018-08-05] MEDS: MUPIROCIN 2% TOPICAL OINTMENT 22 GM TUBE TP SCH ×2 (16:25→21:23)
[2018-08-05] MEDS ORDERED: NICOTINE 14 MG/24 HOURS TOPICAL PATCH TD PRN (16:28)
[2018-08-05] MEDS: CEPHALEXIN MONOHYDRATE 500 MG CAPSULE (UD) PO SCH ×2 (19:00→23:24)
[2018-08-05] MEDS: THIAMINE HCL 100 MG TABLET (FP) PO SCH (21:22)
[2018-08-05] MEDS ORDERED: MELATONIN 5 MG TABLETS PO PRN (22:00)
[2018-08-06] MEDS ORDERED: traZODone HCL 50 MG TABLET (FP) PO ONE (01:34)
[2018-08-06] MEDS: METHADONE HCL 10 MG TABLET PO SCH (06:17)
[2018-08-06] MEDS: CEPHALEXIN MONOHYDRATE 500 MG CAPSULE (UD) PO SCH ×3 (06:17→19:23)
[2018-08-06] MEDS: MUPIROCIN 2% TOPICAL OINTMENT 22 GM TUBE TP SCH ×3 (06:18→21:45)
[2018-08-06] MEDS: amLODIPine BESYLATE 10 MG TABLET (FP) PO SCH (09:55)
[2018-08-06] MEDS: PRENATAL VITAMINS W/ FOLIC ACID TABLET (FP) PO SCH (09:55)
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
--- NOTE | 2018-08-06 16:56 | PN ---
S Progress Note (SOAP) Subjective: Patient with bilateral abscesses on legs. Cannot describe how the abscesses developed or how long she had them Objective: Abscesses bilateral inner aspect of both ankles. Right abscess larger than left with yellow exudates, approximately 1.5 inches in diameter. Leg discolored dark to mid calf, right foot with pitting edema. Skin on feet is scaly. left abscess approximately .5 inch, with yellow exudates. Irregular border. Left leg discolored also, but has less edema, non-pitting. 08/06/18 16:37 Assessment: Cellulitis. 08/06/18 16:56 Plan: Cleanse wound with normal saline, apply a bactroban and cover with clean dry dressing. Keflex ordered. Continue to monitor.
[2018-08-06] MEDS: THIAMINE HCL 100 MG TABLET (FP) PO SCH (21:45)
[2018-08-06] MEDS: QUEtiapine FUMARATE 25 MG TABLET (FP) PO SCH (21:47)
[2018-08-07] MEDS: CEPHALEXIN MONOHYDRATE 500 MG CAPSULE (UD) PO SCH ×5 (00:59→23:23)
[2018-08-07] MEDS: METHADONE HCL 10 MG TABLET PO SCH (06:52)
[2018-08-07] MEDS: MUPIROCIN 2% TOPICAL OINTMENT 22 GM TUBE TP SCH ×3 (07:18→23:23)
[2018-08-07] MEDS ORDERED: PT OWN MED DRAWER 7, Y5N ONE ×3 (08:17→22:19)
[2018-08-07] MEDS: CITALOPRAM HYDROBROMIDE 10 MG TABLET (FP) PO SCH (09:26)
[2018-08-07] MEDS: PRENATAL VITAMINS W/ FOLIC ACID TABLET (FP) PO SCH (09:26)
[2018-08-07] MEDS: amLODIPine BESYLATE 10 MG TABLET (FP) PO SCH (09:26)
[2018-08-07] MEDS: QUEtiapine FUMARATE 25 MG TABLET (FP) PO SCH (21:57)
[2018-08-07] MEDS: THIAMINE HCL 100 MG TABLET (FP) PO SCH (21:57)
[2018-08-07] MEDS ORDERED: HYDROXYCHLOROQUINE SO4 200 MG TABLET (FP) PO SCH (22:00)
[2018-08-08] MEDS: METHADONE HCL 10 MG TABLET PO SCH (06:41)
[2018-08-08] MEDS: CEPHALEXIN MONOHYDRATE 500 MG CAPSULE (UD) PO SCH ×2 (06:42→12:01)
[2018-08-08] MEDS: MUPIROCIN 2% TOPICAL OINTMENT 22 GM TUBE TP SCH ×3 (06:43→21:37)
[2018-08-08] MEDS: CITALOPRAM HYDROBROMIDE 10 MG TABLET (FP) PO SCH (10:05)
[2018-08-08] MEDS: PRENATAL VITAMINS W/ FOLIC ACID TABLET (FP) PO SCH (10:06)
[2018-08-08] MEDS: amLODIPine BESYLATE 10 MG TABLET (FP) PO SCH (10:06)
[2018-08-08] MEDS ORDERED: PT OWN MED DRAWER 7, Y5N ONE ×3 (10:21→19:15)
[2018-08-08 15:53] LABS: BILIRUBIN,TOTAL 0.2 mg/dL (0.2-1); CALCIUM 8.3 mg/dL (8.5-10.1); CREATININE 0.9 mg/dL (0.55-1.3); POTASSIUM 4.4 mmol/L (3.5-5.1); TOT PROT 7.1 g/dl (6.4-8.2)
[2018-08-08] MEDS: QUEtiapine FUMARATE 25 MG TABLET (FP) PO SCH (21:37)
[2018-08-08] MEDS: THIAMINE HCL 100 MG TABLET (FP) PO SCH (21:37)
[2018-08-09] MEDS: MUPIROCIN 2% TOPICAL OINTMENT 22 GM TUBE TP SCH ×3 (06:49→21:37)
[2018-08-09] MEDS: METHADONE HCL 10 MG TABLET PO SCH (06:49)
[2018-08-09] MEDS: CITALOPRAM HYDROBROMIDE 10 MG TABLET (FP) PO SCH (10:01)
[2018-08-09] MEDS: amLODIPine BESYLATE 10 MG TABLET (FP) PO SCH (10:01)
[2018-08-09] MEDS: PRENATAL VITAMINS W/ FOLIC ACID TABLET (FP) PO SCH (10:01)
--- NOTE | 2018-08-09 12:40 | PN ---
S Progress Note Note: wound c/s preliminary report non lactose fermenting gram negative bacillus, coryn bacterium species, patient has been on keflex before,will start on bactrim ds 1 tab po bid ,local wound care, awaiting for permanent report
[2018-08-09] MEDS: SULFAMETHOXAZOLE/TRIMETHOPRIM 800MG/160MG D.S. TABLET PO SCH ×2 (13:19→21:36)
[2018-08-09] MEDS: THIAMINE HCL 100 MG TABLET (FP) PO SCH (21:36)
[2018-08-09] MEDS: QUEtiapine FUMARATE 25 MG TABLET (FP) PO SCH (21:36)
[2018-08-10] MEDS: METHADONE HCL 10 MG TABLET PO SCH (06:32)
[2018-08-10] MEDS: MUPIROCIN 2% TOPICAL OINTMENT 22 GM TUBE TP SCH ×3 (06:32→21:32)
[2018-08-10] MEDS: CITALOPRAM HYDROBROMIDE 10 MG TABLET (FP) PO SCH (10:16)
[2018-08-10] MEDS: amLODIPine BESYLATE 10 MG TABLET (FP) PO SCH (10:16)
[2018-08-10] MEDS: PRENATAL VITAMINS W/ FOLIC ACID TABLET (FP) PO SCH (10:17)
[2018-08-10] MEDS: SULFAMETHOXAZOLE/TRIMETHOPRIM 800MG/160MG D.S. TABLET PO SCH ×2 (10:17→21:32)
[2018-08-10] MEDS: THIAMINE HCL 100 MG TABLET (FP) PO SCH (21:32)
[2018-08-10] MEDS: QUEtiapine FUMARATE 25 MG TABLET (FP) PO SCH (21:32)
[2018-08-11] MEDS: METHADONE HCL 10 MG TABLET PO SCH (06:01)
[2018-08-11] MEDS: MUPIROCIN 2% TOPICAL OINTMENT 22 GM TUBE TP SCH ×3 (06:01→21:23)
[2018-08-11] MEDS: SULFAMETHOXAZOLE/TRIMETHOPRIM 800MG/160MG D.S. TABLET PO SCH ×2 (10:11→21:22)
[2018-08-11] MEDS: amLODIPine BESYLATE 10 MG TABLET (FP) PO SCH (10:11)
[2018-08-11] MEDS: CITALOPRAM HYDROBROMIDE 10 MG TABLET (FP) PO SCH (10:11)
[2018-08-11] MEDS: PRENATAL VITAMINS W/ FOLIC ACID TABLET (FP) PO SCH (10:11)
--- NOTE | 2018-08-11 10:14 | PN ---
[facility] Progress Note Note: PATIENT WOUND CULTURE REPORT NOTED BELOW: Microbiology 08/07/18 14:30 Leg - Right Lower Gram Stain - Final 08/07/18 14:30 Leg - Right Lower Wound Culture - Final Acinetobacter Baumannii/Haemol Klebsiella Oxytoca Corynebacterium Species Lactose Fermenting Neg Bacilli present As per sensitivity report, Acinetobacter Baumanni/Haemol and Klebsiella Oxytoca sensitive to Bactrim. Laboratory Tests 08/08/18 09:12 Sodium 139 Potassium 4.4 Chloride 103 Carbon Dioxide 33 H Anion Gap 3 L BUN 17 Creatinine 0.9 Est GFR (CKD-EPI)AfAm 82.84 Est GFR (CKD-EPI)NonAf 71.48 Random Glucose 97 Calcium 8.3 L Total Bilirubin 0.2 AST 29 ALT 30 Alkaline Phosphatase 83 Total Protein 7.1 Albumin 3.0 L Vital Signs Temperature 97.7 F 08/11/18 06:31 Pulse Rate 73 08/11/18 09:10 Respiratory Rate 18 08/11/18 09:10 Blood Pressure 119/75 08/11/18 09:10 O2 Sat by Pulse Oximetry (%) pe: alert and oriented x 3 skin warm and dry-afebrile ext left wound/abscess resolving with small pink granulation tissue area, no discharge Right inner ankle wounds (2) with irregular borders, yellow tissue, and small amount of discharge present (first time blog writer is assessing wound-as per patient- wound is improving) no visible edema, amb ad michelle a/p: RLE wound/abcesses will continue local wound care bactrim as ordered will have JL Cai follow up and evaluate wound tomorrow to assess for progress/treatment changes continue to monitor clinically.
[2018-08-11] MEDS: THIAMINE HCL 100 MG TABLET (FP) PO SCH (21:22)
[2018-08-11] MEDS: QUEtiapine FUMARATE 25 MG TABLET (FP) PO SCH (21:22)
[2018-08-12] MEDS: METHADONE HCL 10 MG TABLET PO SCH (06:12)
[2018-08-12] MEDS: MUPIROCIN 2% TOPICAL OINTMENT 22 GM TUBE TP SCH (06:14)
[2018-08-12] MEDS: CITALOPRAM HYDROBROMIDE 10 MG TABLET (FP) PO SCH (10:14)
[2018-08-12] MEDS: SULFAMETHOXAZOLE/TRIMETHOPRIM 800MG/160MG D.S. TABLET PO SCH ×2 (10:14→21:29)
[2018-08-12] MEDS: amLODIPine BESYLATE 10 MG TABLET (FP) PO SCH (10:14)
[2018-08-12] MEDS: PRENATAL VITAMINS W/ FOLIC ACID TABLET (FP) PO SCH (10:15)
--- NOTE | 2018-08-12 11:19 | PN ---
S Progress Note (SOAP) Subjective: Patient bumped right 5th toe on table in dining room. Objective: No injury seen. Foot is red and swollen, but this was present prior to hitting her toe. Client has a wound on the right ankle. Toe is mobile, non-tender to palpation. Full weight bearing and able to ambulate without guarding or hesitancy. 08/12/18 11:15 Assessment: Findings are normal for patient. 08/12/18 11:17 Plan: No further action taken. Patient instructed in safe ambulation.
[2018-08-12] MEDS: NEOMYCIN/POLYMYXIN/BACITRACIN (TRIPLE ANTIBIOTIC) 28 GM OINTMENT TP SCH (12:30)
[2018-08-12] MEDS: THIAMINE HCL 100 MG TABLET (FP) PO SCH (21:29)
[2018-08-12] MEDS: QUEtiapine FUMARATE 25 MG TABLET (FP) PO SCH (21:29)
[2018-08-13] MEDS: NEOMYCIN/POLYMYXIN/BACITRACIN (TRIPLE ANTIBIOTIC) 28 GM OINTMENT TP SCH ×3 (00:05→21:56)
[2018-08-13] MEDS: METHADONE HCL 10 MG TABLET PO SCH (06:29)
[2018-08-13] MEDS: CITALOPRAM HYDROBROMIDE 10 MG TABLET (FP) PO SCH (09:51)
[2018-08-13] MEDS: amLODIPine BESYLATE 10 MG TABLET (FP) PO SCH (09:51)
[2018-08-13] MEDS: PRENATAL VITAMINS W/ FOLIC ACID TABLET (FP) PO SCH (09:51)
[2018-08-13] MEDS: SULFAMETHOXAZOLE/TRIMETHOPRIM 800MG/160MG D.S. TABLET PO SCH ×2 (09:51→21:56)
[2018-08-13] MEDS ORDERED: PT OWN MED DRAWER 7, Y5N ONE (13:49)
[2018-08-13] MEDS: QUEtiapine FUMARATE 25 MG TABLET (FP) PO SCH (21:56)
[2018-08-13] MEDS: THIAMINE HCL 100 MG TABLET (FP) PO SCH (21:56)
[2018-08-14] MEDS: METHADONE HCL 10 MG TABLET PO SCH (06:39)
[2018-08-14] MEDS ORDERED: PT OWN MED DRAWER 7, Y5N ONE (08:48)
[2018-08-14] MEDS: PRENATAL VITAMINS W/ FOLIC ACID TABLET (FP) PO SCH (10:14)
[2018-08-14] MEDS: SULFAMETHOXAZOLE/TRIMETHOPRIM 800MG/160MG D.S. TABLET PO SCH ×2 (10:14→21:22)
[2018-08-14] MEDS: CITALOPRAM HYDROBROMIDE 10 MG TABLET (FP) PO SCH (10:15)
[2018-08-14] MEDS: NEOMYCIN/POLYMYXIN/BACITRACIN (TRIPLE ANTIBIOTIC) 28 GM OINTMENT TP SCH ×2 (10:15→21:22)
[2018-08-14] MEDS: amLODIPine BESYLATE 10 MG TABLET (FP) PO SCH (10:15)
--- NOTE | 2018-08-14 13:45 | PN ---
[facility] Progress Note Note: Client has refused dressing changes at night for 3 days for bilateral ankle wounds. . Wounds improved with less exudates compared to admission, edges of wounds clean, but not approximated, some pink tissue visualized. Continues to be malodorous. Explained to patient reason for dressing changes--she continues to refuse evening dressing changes.
--- NOTE | 2018-08-14 14:48 | PN ---
[facility] Progress Note Note: Patient is scheduled for discharge tomorrow. Scripts for 30 days supply of medications(Celexa 10 mg/day, Seroquel 50 mg/hs) will be electronically transmitted to [facility] at [address] [place] [id number]
--- NOTE | 2018-08-14 16:30 | PN ---
S Progress Note (SOAP) Subjective: PT IS SCHEDULED TO DISCHARGE IN THE MORNING. PT HAS BEEN REFERRED TO [facility] FOR CD [facility]ARE ON [address] [place] [address]. PT REPORTS SHE HAS A PCP, DR. JONNIE LOVELACE AT [facility] ON [place], [place] FOR MEDICAL MANAGEMENT. PT REPORTS SHE HAS ALL HER MEDICATIONS AT HOME. ALERT O X 3. DENIES S/H/I. Objective: 08/14/18 16:31 Vital Signs 08/14/18 10:00 Pulse Rate 84 Blood Pressure 132/84 Laboratory Tests 08/08/18 09:12 Sodium 139 Potassium 4.4 Chloride 103 Carbon Dioxide 33 H Anion Gap 3 L BUN 17 Creatinine 0.9 Est GFR (CKD-EPI)AfAm 82.84 Est GFR (CKD-EPI)NonAf 71.48 Random Glucose 97 Calcium 8.3 L Total Bilirubin 0.2 AST 29 ALT 30 Alkaline Phosphatase 83 Total Protein 7.1 Albumin 3.0 L Assessment: 08/14/18 16:31 NAD MEDICALLY STABLE Plan: D/C IN A.M FOLLOW UP WITH CD AFTERCARE RECOMMENDATION PLANNED. FOLLOW UP WITH PCP WITHIN 1 WEEK FOR MEDICAL MANAGEMENT/WOUND CARE.
[2018-08-14] MEDS: THIAMINE HCL 100 MG TABLET (FP) PO SCH (21:22)
[2018-08-14] MEDS: QUEtiapine FUMARATE 25 MG TABLET (FP) PO SCH (21:22)
[2018-08-15] MEDS ORDERED: METHADONE HCL 10 MG TABLET PO SCH (06:00)
[2018-08-15 07:20] VITALS: BP 122/80; PULSE 50; TEMP 97.4
[2018-08-15] MEDS: SULFAMETHOXAZOLE/TRIMETHOPRIM 800MG/160MG D.S. TABLET PO SCH (09:08)
[2018-08-15] MEDS: PRENATAL VITAMINS W/ FOLIC ACID TABLET (FP) PO SCH (09:08)
[2018-08-15] MEDS: CITALOPRAM HYDROBROMIDE 10 MG TABLET (FP) PO SCH (09:08)
[2018-08-15] MEDS: amLODIPine BESYLATE 10 MG TABLET (FP) PO SCH (09:09)
[2018-08-15] MEDS: NEOMYCIN/POLYMYXIN/BACITRACIN (TRIPLE ANTIBIOTIC) 28 GM OINTMENT TP SCH (09:09)
--- NOTE | 2018-08-15 11:49 | PN ---
S Progress Note Note: PT DISCHARGED TODAY SCHEDULED. ALERT O X 3. NAD. Vital Signs - 24 hr 08/15/18 08/15/18 08/15/18 00:30 03:30 07:17 Temperature 97.4 F L Pulse Rate 50 L Respiratory 18 18 18 Rate Blood Pressure 122/80
== END 2018-08-15 09:23 | disposition home or self-care (01) | DRG 772 ==
LOC: YASAS 13:01 → Y3E 13:02
PROVIDERS: ADMIT Neuromusculoskeletal Medicine & OMM; ATTEND Neuromusculoskeletal Medicine & OMM
PROC: HZ42ZZZ Group Counseling for Substance Abuse Treatment, Cognitive-Behavioral (ICD-10-PCS; principal; 2018-08-05)
DX: F10.20 Alcohol dependence, uncomplicated (principal); F11.20 Opioid dependence, uncomplicated; F14.20 Cocaine dependence, uncomplicated; F12.20 Cannabis dependence, uncomplicated; F17.210 Nicotine dependence, cigarettes, uncomplicated; E03.9 Hypothyroidism, unspecified; M32.9 Systemic lupus erythematosus, unspecified; R01.1 Cardiac murmur, unspecified; L30.9 Dermatitis, unspecified; L40.9 Psoriasis, unspecified; L02.416 Cutaneous abscess of left lower limb; L02.415 Cutaneous abscess of right lower limb; L03.116 Cellulitis of left lower limb; L03.115 Cellulitis of right lower limb; W22.8XXA Striking against or struck by other objects, initial encounter; Y93.89 Activity, other specified; Y92.239 Unspecified place in hospital as the place of occurrence of the external cause
CPT/HCPCS: 36415; 80053; 87070; 87186; 87205

== ENCOUNTER 2020-08-22 16:52 | Inpatient (IN) | payer OTHER ==
[2020-08-22] MEDS ORDERED: MENTHOL/PHENOL 1 EACH UD MM PRN (20:18)
[2020-08-22] MEDS ORDERED: ACETAMINOPHEN 325 MG TABLET (FP) PO PRN ×2 (20:18)
[2020-08-22] MEDS ORDERED: IBUPROFEN 400 MG TABLET (FP) PO PRN (20:18)
[2020-08-22] MEDS ORDERED: NICOTINE POLACRILEX 2 MG GUM BUC PRN (20:18)
[2020-08-22] MEDS ORDERED: MAGNESIUM HYDROX 2400MG/30ML ORAL SUSPENSION 30 ML CUP PO PRN (20:18)
[2020-08-22] MEDS ORDERED: METHOCARBAMOL 500 MG TABLET PO PRN (20:18)
[2020-08-22] MEDS ORDERED: BISMUTH SUBSALICYLATE 524 MG/30 ML PO PRN (20:18)
[2020-08-22] MEDS ORDERED: MAGNESIUM CITRATE 300 ML BOTTLE PO PRN (20:18)
[2020-08-22] MEDS ORDERED: MAG HYDROX/AL HYDROX/SIMETH 30 ML UNIT-DOSE CUP PO PRN (20:18)
[2020-08-22] MEDS ORDERED: hydrOXYzine PAMOATE 25 MG CAPSULE (FP) PO PRN (20:18)
[2020-08-22] MEDS ORDERED: ONDANSETRON *ODT* 4 MG TABLET SL PRN (20:18)
[2020-08-22] MEDS ORDERED: cloNIDine HCL 0.1 MG TABLET PO ONE (20:21)
[2020-08-22] MEDS: MELATONIN 5 MG TABLETS PO SCH (22:18)
[2020-08-22] MEDS: THIAMINE HCL 100 MG TABLET (FP) PO SCH (22:18)
[2020-08-23] MEDS: PRENATAL VITAMINS W/ FOLIC ACID TABLET (FP) PO SCH (10:28)
[2020-08-23] MEDS: amLODIPine BESYLATE 10 MG TABLET (FP) PO SCH (17:37)
[2020-08-23] MEDS ORDERED: QUEtiapine FUMARATE 100 MG TABLET (FP) PO SCH (22:00)
[2020-08-23] MEDS: THIAMINE HCL 100 MG TABLET (FP) PO SCH (22:53)
[2020-08-23] MEDS: MELATONIN 5 MG TABLETS PO SCH (22:53)
[2020-08-24] MEDS: amLODIPine BESYLATE 10 MG TABLET (FP) PO SCH (10:38)
[2020-08-24] MEDS: PRENATAL VITAMINS W/ FOLIC ACID TABLET (FP) PO SCH (10:38)
[2020-08-24 11:08] LABS: HEMATOCRIT 43.8 % (32.4-45.2); HEMOGLOBIN 14.3 GM/dL (10.7-15.3); MCHC 32.6 g/dl (32.0-36.0); MEAN CELL VOLUME 94.9 fl (80-96); MEAN PLT VOLUME 9.6 fl (7.5-11.1); PLATELET COUNT 202 K/MM3 (134-434); RBC 4.62 M/mm3 (3.60-5.2); RDW 14.8 % (11.6-15.6); WHITE BLOOD COUNT 4.2 K/mm3 (4.0-10.0)
[2020-08-24 11:18] LABS: BLOOD UREA NITROGEN 13.8 mg/dL (7-18)
[2020-08-24 11:21] LABS: CREATININE 0.9 mg/dL (0.55-1.3)
[2020-08-24 11:22] LABS: BILIRUBIN,TOTAL 0.6 mg/dL (0.2-1); TOT PROT 7.2 g/dl (6.4-8.2)
[2020-08-24 13:24] VITALS: BP 140/94; PULSE 83; TEMP 98.1
== END 2020-08-24 13:20 | disposition home or self-care (01) | DRG 773 ==
LOC: YASAS 16:52 → Y6N 20:34
PROVIDERS: ADMIT Allergy & Immunology; ATTEND Allergy & Immunology
PROC: HZ2ZZZZ Detoxification Services for Substance Abuse Treatment (ICD-10-PCS; principal; 2020-08-22)
DX: F11.23 Opioid dependence with withdrawal (principal); F10.230 Alcohol dependence with withdrawal, uncomplicated; F14.20 Cocaine dependence, uncomplicated; F16.20 Hallucinogen dependence, uncomplicated; F17.210 Nicotine dependence, cigarettes, uncomplicated; F19.282 Other psychoactive substance dependence with psychoactive substance-induced sleep disorder; F19.24 Other psychoactive substance dependence with psychoactive substance-induced mood disorder; F31.9 Bipolar disorder, unspecified; I10 Essential (primary) hypertension; E03.9 Hypothyroidism, unspecified; M32.9 Systemic lupus erythematosus, unspecified; M19.90 Unspecified osteoarthritis, unspecified site; L30.9 Dermatitis, unspecified; Z62.810 Personal history of physical and sexual abuse in childhood; Z91.410 Personal history of adult physical and sexual abuse
CPT/HCPCS: 36415; 80053; 85027; 86780; C9803; J0735; Q0162; U0003; U0005

== ENCOUNTER 2020-11-18 18:36 | Inpatient (IN) | payer OTHER ==
[2020-11-18 20:26] VITALS: BMI 21.2
[2020-11-18] MEDS ORDERED: DICYCLOMINE HCL 10 MG CAPSULE PO PRN (21:06)
[2020-11-18] MEDS ORDERED: ACETAMINOPHEN 325 MG TABLET (FP) PO PRN (21:06)
[2020-11-18] MEDS ORDERED: guaiFENesin 200 MG/10 ML 10 ML UNIT-DOSE CUPS PO PRN (21:06)
[2020-11-18] MEDS ORDERED: ONDANSETRON *ODT* 4 MG TABLET SL PRN (21:06)
[2020-11-18] MEDS ORDERED: MAGNESIUM HYDROX 2400MG/30ML ORAL SUSPENSION 30 ML CUP PO PRN (21:06)
[2020-11-18] MEDS ORDERED: NALOXONE (NARCAN) HCL 4 MG/0.1 ML SPRAY NS PRN (21:06)
[2020-11-18] MEDS ORDERED: NICOTINE 10 MG CARTRIDGE (INHALER) IH PRN (21:06)
[2020-11-18] MEDS ORDERED: MAG HYDROX/AL HYDROX/SIMETH 30 ML UNIT-DOSE CUP PO PRN (21:06)
[2020-11-18] MEDS ORDERED: MAGNESIUM CITRATE 300 ML BOTTLE PO PRN (21:06)
[2020-11-18] MEDS ORDERED: P-EPHED 60MG/TRIPROLIDI 2.5MG TABLET PO PRN (21:06)
[2020-11-18] MEDS ORDERED: BISMUTH SUBSALICYLATE 524 MG/30 ML PO PRN (21:06)
[2020-11-18] MEDS ORDERED: MENTHOL/PHENOL 1 EACH UD MM PRN (21:06)
[2020-11-18] MEDS ORDERED: NALOXONE HCL 0.4 MG/ML VIAL IM PRN (21:06)
[2020-11-19] MEDS: amLODIPine BESYLATE 10 MG TABLET (FP) PO SCH (11:52)
[2020-11-19] MEDS: PRENATAL VITAMINS W/ FOLIC ACID TABLET (FP) PO SCH (11:53)
[2020-11-19] MEDS: NICOTINE 14 MG/24 HOURS TOPICAL PATCH TD SCH (11:53)
[2020-11-19] MEDS: THIAMINE HCL 100 MG TABLET (FP) PO SCH (22:39)
[2020-11-19] MEDS: MELATONIN 5 MG TABLETS PO SCH (22:40)
[2020-11-19] MEDS: hydrOXYzine PAMOATE 25 MG CAPSULE (FP) PO PRN (22:42)
[2020-11-20] MEDS: MELATONIN 5 MG TABLETS PO SCH ×2 (09:17→22:51)
[2020-11-20] MEDS: THIAMINE HCL 100 MG TABLET (FP) PO SCH ×2 (09:18→22:51)
[2020-11-20] MEDS: PRENATAL VITAMINS W/ FOLIC ACID TABLET (FP) PO SCH (11:39)
[2020-11-20] MEDS: NICOTINE 14 MG/24 HOURS TOPICAL PATCH TD SCH (13:21)
[2020-11-20] MEDS: amLODIPine BESYLATE 10 MG TABLET (FP) PO SCH (13:21)
[2020-11-20] MEDS: hydrOXYzine PAMOATE 25 MG CAPSULE (FP) PO PRN ×2 (13:28→18:20)
[2020-11-20] MEDS ORDERED: TRIMETHOBENZAMIDE HCL 200MG/2ML INJ IM ONE ×2 (14:37→18:00)
[2020-11-20] MEDS ORDERED: cloNIDine HCL 0.1 MG TABLET PO ONE (17:37)
[2020-11-20] MEDS: METHOCARBAMOL 500 MG TABLET PO PRN (18:20)
[2020-11-20] MEDS ORDERED: diazePAM 5 MG TABLET PO PRN (21:51)
[2020-11-20] MEDS ORDERED: methaDONE HCL 10 MG TABLET PO ONE ×2 (21:51)
[2020-11-20] MEDS: diazePAM 5 MG TABLET PO SCH (22:52)
[2020-11-21] MEDS: diazePAM 5 MG TABLET PO SCH ×4 (06:58→22:20)
[2020-11-21] MEDS: METHOCARBAMOL 500 MG TABLET PO PRN (06:58)
[2020-11-21] MEDS: ACETAMINOPHEN 325 MG TABLET (FP) PO PRN (07:05)
[2020-11-21] MEDS ORDERED: methaDONE HCL 10 MG TABLET PO ONE (10:00)
[2020-11-21] MEDS ORDERED: methaDONE HCL 40 MG DISPERSABLE TABLET PO ONE (10:00)
[2020-11-21] MEDS: amLODIPine BESYLATE 10 MG TABLET (FP) PO SCH (10:17)
[2020-11-21] MEDS: PRENATAL VITAMINS W/ FOLIC ACID TABLET (FP) PO SCH (10:17)
[2020-11-21] MEDS: NICOTINE 14 MG/24 HOURS TOPICAL PATCH TD SCH (10:18)
[2020-11-21] MEDS: HYDROCHLOROTHIAZIDE 12.5 MG CAPSULE (FP) PO SCH (12:16)
[2020-11-21] MEDS: BACITRACIN 0.9 GM PACKET TP SCH (17:54)
[2020-11-21 18:26] LABS: HEMATOCRIT 43.8 % (32.4-45.2); HEMOGLOBIN 14.5 GM/dL (10.7-15.3); MCH 31.1 pg (25.7-33.7); MCHC 33.1 g/dl (32.0-36.0); MEAN PLT VOLUME 10.3 fl (7.5-11.1); PLATELET COUNT 198 10^3/uL (134-434); RBC 4.66 M/mm3 (3.60-5.2); RDW 13.9 % (11.6-15.6); WHITE BLOOD COUNT 5.7 K/mm3 (4.0-10.0)
[2020-11-21 18:37] LABS: CALCIUM 8.9 mg/dL (8.5-10.1)
[2020-11-21 18:38] LABS: ALBUMIN 3.4 g/dl (3.4-5.0); BLOOD UREA NITROGEN 17.6 mg/dL (7-18)
[2020-11-21 18:41] LABS: CREATININE 1.1 mg/dL (0.55-1.3)
[2020-11-21 18:43] LABS: BILIRUBIN,TOTAL 0.3 mg/dL (0.2-1); TOT PROT 7.9 g/dl (6.4-8.2)
[2020-11-21] MEDS: THIAMINE HCL 100 MG TABLET (FP) PO SCH (22:20)
[2020-11-21] MEDS: MELATONIN 5 MG TABLETS PO SCH (22:20)
[2020-11-21] MEDS: QUEtiapine FUMARATE 100 MG TABLET (FP) PO SCH (22:20)
[2020-11-22] MEDS ORDERED: methaDONE HCL 10 MG TABLET ONE (04:07)
[2020-11-22] MEDS ORDERED: methaDONE HCL 40 MG DISPERSABLE TABLET ONE (04:08)
[2020-11-22] MEDS ORDERED: methaDONE HCL 10 MG TABLET PO SCH (06:00)
[2020-11-22] MEDS: diazePAM 5 MG TABLET PO SCH ×3 (06:46→22:06)
[2020-11-22] MEDS: methaDONE 40 MG, methaDONE 10 MG PO SCH (06:48)
[2020-11-22] MEDS ORDERED: POTASSIUM CHLORIDE TABS 20 MEQ TABLET.ER (FP) PO ONE (07:45)
[2020-11-22] MEDS: NICOTINE 14 MG/24 HOURS TOPICAL PATCH TD SCH (10:18)
[2020-11-22] MEDS: BACITRACIN 0.9 GM PACKET TP SCH (10:19)
[2020-11-22] MEDS: amLODIPine BESYLATE 10 MG TABLET (FP) PO SCH (10:19)
[2020-11-22] MEDS: PRENATAL VITAMINS W/ FOLIC ACID TABLET (FP) PO SCH (10:19)
[2020-11-22] MEDS: HYDROCHLOROTHIAZIDE 12.5 MG CAPSULE (FP) PO SCH (10:19)
[2020-11-22] MEDS: THIAMINE HCL 100 MG TABLET (FP) PO SCH (22:05)
[2020-11-22] MEDS: QUEtiapine FUMARATE 100 MG TABLET (FP) PO SCH (22:05)
[2020-11-22] MEDS: MELATONIN 5 MG TABLETS PO SCH (22:06)
[2020-11-22] MEDS: METHOCARBAMOL 500 MG TABLET PO PRN (22:07)
[2020-11-23] MEDS ORDERED: methaDONE HCL 10 MG TABLET ONE (04:14)
[2020-11-23] MEDS ORDERED: methaDONE HCL 40 MG DISPERSABLE TABLET ONE (04:15)
[2020-11-23] MEDS: diazePAM 5 MG TABLET PO SCH ×2 (06:00→18:02)
[2020-11-23] MEDS: methaDONE 40 MG, methaDONE 10 MG PO SCH (06:01)
[2020-11-23] MEDS: METHOCARBAMOL 500 MG TABLET PO PRN (06:02)
[2020-11-23] MEDS: ACETAMINOPHEN 325 MG TABLET (FP) PO PRN ×2 (06:03→18:02)
[2020-11-23] MEDS: HYDROCHLOROTHIAZIDE 12.5 MG CAPSULE (FP) PO SCH (11:29)
[2020-11-23] MEDS: PRENATAL VITAMINS W/ FOLIC ACID TABLET (FP) PO SCH (11:29)
[2020-11-23] MEDS: POTASSIUM CHLORIDE TABS 20 MEQ TABLET.ER (FP) PO SCH (11:29)
[2020-11-23] MEDS: amLODIPine BESYLATE 10 MG TABLET (FP) PO SCH (11:29)
[2020-11-23] MEDS: BACITRACIN 0.9 GM PACKET TP SCH (11:29)
[2020-11-23] MEDS: NICOTINE 14 MG/24 HOURS TOPICAL PATCH TD SCH (11:30)
[2020-11-23] MEDS: IBUPROFEN 400 MG TABLET (FP) PO PRN ×2 (11:31→20:54)
[2020-11-23] MEDS: QUEtiapine FUMARATE 100 MG TABLET (FP) PO SCH (22:31)
[2020-11-23] MEDS: MELATONIN 5 MG TABLETS PO SCH (22:31)
[2020-11-23] MEDS: THIAMINE HCL 100 MG TABLET (FP) PO SCH (22:31)
[2020-11-24] MEDS ORDERED: methaDONE HCL 40 MG DISPERSABLE TABLET ONE (03:57)
[2020-11-24] MEDS ORDERED: methaDONE HCL 10 MG TABLET ONE (03:57)
[2020-11-24] MEDS ORDERED: diazePAM 5 MG TABLET PO ONE (06:00)
[2020-11-24] MEDS: methaDONE 40 MG, methaDONE 10 MG PO SCH (07:55)
[2020-11-24 09:48] VITALS: PULSE 84; TEMP 96.6
[2020-11-24] MEDS: BACITRACIN 0.9 GM PACKET TP SCH (10:38)
[2020-11-24] MEDS: HYDROCHLOROTHIAZIDE 12.5 MG CAPSULE (FP) PO SCH (10:38)
[2020-11-24] MEDS: amLODIPine BESYLATE 10 MG TABLET (FP) PO SCH (10:38)
[2020-11-24] MEDS: POTASSIUM CHLORIDE TABS 20 MEQ TABLET.ER (FP) PO SCH (10:38)
[2020-11-24] MEDS: PRENATAL VITAMINS W/ FOLIC ACID TABLET (FP) PO SCH (10:39)
[2020-11-24] MEDS: NICOTINE 14 MG/24 HOURS TOPICAL PATCH TD SCH (10:42)
[2020-11-24 13:59] VITALS: BP 132/84
== END 2020-11-24 17:38 | disposition other institution (70) | DRG 773 ==
LOC: YASAS 18:36 → Y3N 11-19 09:26 → UNDOADMIN 11-19 09:26 → Y3N 11-21 14:13
PROVIDERS: ADMIT Allergy & Immunology; ATTEND Allergy & Immunology
PROC: HZ2ZZZZ Detoxification Services for Substance Abuse Treatment (ICD-10-PCS; principal; 2020-11-19)
DX: F10.230 Alcohol dependence with withdrawal, uncomplicated (principal); F11.20 Opioid dependence, uncomplicated; F14.20 Cocaine dependence, uncomplicated; F16.20 Hallucinogen dependence, uncomplicated; F17.210 Nicotine dependence, cigarettes, uncomplicated; F19.282 Other psychoactive substance dependence with psychoactive substance-induced sleep disorder; F19.24 Other psychoactive substance dependence with psychoactive substance-induced mood disorder; F31.9 Bipolar disorder, unspecified; G47.00 Insomnia, unspecified; I10 Essential (primary) hypertension; E03.9 Hypothyroidism, unspecified; M32.9 Systemic lupus erythematosus, unspecified; L30.9 Dermatitis, unspecified; M54.5 Low back pain; G89.29 Other chronic pain; Z62.810 Personal history of physical and sexual abuse in childhood; Z91.410 Personal history of adult physical and sexual abuse; Z91.14 Patient's other noncompliance with medication regimen; S09.90XA Unspecified injury of head, initial encounter; S50.811A Abrasion of right forearm, initial encounter; W19.XXXA Unspecified fall, initial encounter; Y92.239 Unspecified place in hospital as the place of occurrence of the external cause
CPT/HCPCS: 36415; 80053; 84132; 85027; 86780; 93005; 93010; C9803; J0735; Q0162; U0003; U0005

== ENCOUNTER 2020-11-19 02:35 | Emergency (ER) | payer OTHER ==
[2020-11-19 02:39] VITALS: BMI 21.2
[2020-11-19 09:32] VITALS: BP 113/87; PULSE 89; TEMP 98.7
== END 2020-11-19 09:42 | disposition home or self-care (01) ==
LOC: JER 02:35
DX: F10.10 Alcohol abuse, uncomplicated (principal); F19.10 Other psychoactive substance abuse, uncomplicated
CPT/HCPCS: 99281-25

== ENCOUNTER 2021-11-17 14:46 | Inpatient (IN) | payer OTHER ==
[2021-11-17 16:48] LABS: BASO % 0.3 % (0-2.0); EOS % 0.9 % (0-4.5); HEMATOCRIT 39.9 % (32.4-45.2); LYMPH % 24.4 % (8-40); MCHC 32.6 g/dl (32.0-36.0); MEAN CELL VOLUME 98.3 fl (80-96); MEAN PLT VOLUME 9.5 fl (7.5-11.1); MONO % 9.6 % (3.8-10.2); NEUT % 64.8 % (42.8-82.8); PLATELET COUNT 168 10^3/uL (134-434); RBC 4.06 M/mm3 (3.60-5.2); WHITE BLOOD COUNT 4.5 K/mm3 (4.0-10.0)
[2021-11-17 16:54] LABS: INR 1.11 (0.83-1.09); PROTHROMBIN TIME (PATIENT) 12.8 SEC (9.7-13.0)
[2021-11-17 16:57] LABS: ACTIVATED PTT 29.7 SECONDS (25.2-36.5)
[2021-11-17 17:27] LABS: CALCIUM 8.1 mg/dL (8.5-10.1)
[2021-11-17 17:28] LABS: ALBUMIN 2.9 g/dl (3.4-5.0); BLOOD UREA NITROGEN 14.6 mg/dL (7-18); ERYTHROCYTE SEDIMENTATION RATE 6 mm/hr (0-30)
[2021-11-17 17:31] LABS: CREATININE 1.1 mg/dL (0.55-1.3)
[2021-11-17 17:33] LABS: BILIRUBIN,TOTAL 0.2 mg/dL (0.2-1); TOT PROT 6.7 g/dl (6.4-8.2)
[2021-11-17] MEDS ORDERED: VANCOMYCIN 1 GM in D5W (PRE-DOCKED) 1,000 MG/250 ML IVPB ONE (17:49)
[2021-11-17] MEDS ORDERED: CEFTRIAXONE 2,000 MG in DEXTROSE 5%-WATER - 50 ML IVPB ONE (17:50)
[2021-11-17] MEDS ORDERED: CEFTRIAXONE 2 GM/100 ML BAG IVPB ONE (18:19)
[2021-11-17] MEDS ORDERED: DEXTROSE 50%-WATER - 25 GM/50 ML VIAL IVPUSH ONE (18:31)
[2021-11-17] MEDS ORDERED: DEXTROSE 50%-WATER 25 GM/50 ML DISP.SYRIN ONE (18:50)
[2021-11-17] MEDS ORDERED: VANCOMYCIN/WATER FOR INJ (PEG) 1,000 MG/200 ML BAG IVPB ONE (18:51)
[2021-11-17] MEDS ORDERED: chlordiazePOXIDE HCL 25 MG CAPSULE PO PRN (23:22)
[2021-11-17] MEDS: chlordiazePOXIDE HCL 25 MG CAPSULE PO SCH (23:50)
[2021-11-18 02:56] VITALS: BMI 27.8
[2021-11-18] MEDS: chlordiazePOXIDE HCL 25 MG CAPSULE PO SCH ×6 (05:42→22:22)
[2021-11-18] MEDS ORDERED: methaDONE HCL 10 MG TABLET (FOR DETOX USE ONLY) PO ONE (06:00)
[2021-11-18] MEDS ORDERED: methaDONE 40 MG, methaDONE 10 MG PO ONE ×2 (06:00→12:45)
[2021-11-18 07:01] LABS: PH,URINE 6.5 (5.0-8.0); URINE APPEARANCE CLEAR; URINE BILIRUBIN NEGATIVE (NEGATIVE); URINE COLOR YELLOW; URINE GLUCOSE (UA) NEGATIVE (NEGATIVE); URINE KETONE NEGATIVE (NEGATIVE); URINE LEUK ESTERASE NEGATIVE (NEGATIVE); URINE NITRITE NEGATIVE (NEGATIVE); URINE PROTEIN NEGATIVE (NEGATIVE); URINE UROBILINOGEN 0.2 mg/dL (0.2-1.0)
[2021-11-18 07:05] LABS: OPIATES, URI NEGATIVE (NEGATIVE)
[2021-11-18 07:06] LABS: URINE BARBITURATES NEGATIVE (NEGATIVE); URINE BENZODIAZEPINES NEGATIVE (NEGATIVE)
[2021-11-18 07:10] LABS: COCAINE, UR POSITIVE (NEGATIVE); METHADONE, UR POSITIVE (NEGATIVE); PHENCYCLIDINE,URINE POSITIVE (NEGATIVE); URINE AMPHETAMINES NEGATIVE (NEGATIVE)
[2021-11-18] MEDS: amLODIPine BESYLATE 5 MG TABLET (FP) PO SCH (09:31)
[2021-11-18] MEDS: ENOXAPARIN NA (PORCINE) 40 MG/0.4 ML DISP.SYRIN SQ SCH (09:31)
[2021-11-18] MEDS ORDERED: PIPERACILLIN/TAZOB 3.375 GM 3.375 GM in DEXTROSE 5%-WATER - 50 ML IVPB SCH (10:00)
[2021-11-18] MEDS ORDERED: methaDONE HCL 10 MG TABLET PO ONE (11:45)
[2021-11-18 11:54] LABS: BASO % 0.4 % (0-2.0); EOS % 0.7 % (0-4.5); HEMATOCRIT 41.1 % (32.4-45.2); HEMOGLOBIN 12.8 GM/dL (10.7-15.3); LYMPH % 25.3 % (8-40); MCH 30.7 pg (25.7-33.7); MCHC 31.2 g/dl (32.0-36.0); MEAN CELL VOLUME 98.3 fl (80-96); MEAN PLT VOLUME 10.6 fl (7.5-11.1); MONO % 9.7 % (3.8-10.2); NEUT % 63.9 % (42.8-82.8); PLATELET COUNT 168 10^3/uL (134-434); RBC 4.18 M/mm3 (3.60-5.2); RDW 13.8 % (11.6-15.6); WHITE BLOOD COUNT 4.3 K/mm3 (4.0-10.0)
[2021-11-18] MEDS ORDERED: HYDROXYCHLOROQUINE SO4 200 MG TABLET (FP) PO SCH (12:00)
[2021-11-18 12:14] LABS: CALCIUM 8.2 mg/dL (8.5-10.1)
[2021-11-18 12:15] LABS: ALBUMIN 2.7 g/dl (3.4-5.0); BLOOD UREA NITROGEN 12.3 mg/dL (7-18); MAGNESIUM 2.1 mg/dL (1.8-2.4)
[2021-11-18 12:17] LABS: CHOLESTEROL 107 mg/dL (50-200)
[2021-11-18 12:18] LABS: CREATININE 0.9 mg/dL (0.55-1.3); TRIGLYCERIDES 94 mg/dL (0-150)
[2021-11-18 12:19] LABS: BILIRUBIN,TOTAL 0.3 mg/dL (0.2-1); LDL CHOLESTEROL (ONLY SJRH) 46 mg/dL (5-100); TOT PROT 6.3 g/dl (6.4-8.2)
[2021-11-18 12:21] LABS: HDL CHOLESTEROL 44 mg/dL (40-60)
[2021-11-18] MEDS ORDERED: VANCOMYCIN 1 GM/200 ML PREMIX BAG (RESTRICTED TO ID ONLY) IVPB SCH (19:00)
[2021-11-18] MEDS: ATORVASTATIN CA 40 MG TABLET (FP) PO SCH (22:21)
[2021-11-19] MEDS ORDERED: chlordiazePOXIDE HCL 10 MG CAPSULE PO PRN
[2021-11-19] MEDS: chlordiazePOXIDE HCL 10 MG CAPSULE PO SCH ×4 (06:04→22:15)
[2021-11-19] MEDS ORDERED: methaDONE HCL 10 MG TABLET (FOR DETOX USE ONLY) PO ONE (09:10)
[2021-11-19] MEDS ORDERED: methaDONE 40 MG, methaDONE 10 MG PO SCH (09:30)
[2021-11-19] MEDS ORDERED: PIPERACILLIN/TAZOB 3.375 GM 3.375 GM in DEXTROSE 5%-WATER - 50 ML IVPB SCH (10:00)
[2021-11-19] MEDS: ENOXAPARIN NA (PORCINE) 40 MG/0.4 ML DISP.SYRIN SQ SCH (10:08)
[2021-11-19] MEDS: amLODIPine BESYLATE 5 MG TABLET (FP) PO SCH (10:08)
[2021-11-19] MEDS ORDERED: VANCOMYCIN 1 GM/200 ML PREMIX BAG (RESTRICTED TO ID ONLY) IVPB SCH (19:00)
[2021-11-19] MEDS: ATORVASTATIN CA 40 MG TABLET (FP) PO SCH (21:30)
[2021-11-20] MEDS: chlordiazePOXIDE HCL 10 MG CAPSULE PO SCH ×2 (05:21→17:09)
[2021-11-20] MEDS: ENOXAPARIN NA (PORCINE) 40 MG/0.4 ML DISP.SYRIN SQ SCH (10:28)
[2021-11-20] MEDS: CEFTRIAXONE 1 GM in DEXTROSE 5%-WATER - 50 ML IVPB SCH (10:28)
[2021-11-20] MEDS: amLODIPine BESYLATE 5 MG TABLET (FP) PO SCH (10:29)
[2021-11-20] MEDS: ATORVASTATIN CA 40 MG TABLET (FP) PO SCH (21:47)
[2021-11-21] MEDS ORDERED: chlordiazePOXIDE HCL 10 MG CAPSULE PO ONE (05:00)
[2021-11-21 10:23] LABS: BASO % 0.8 % (0-2.0); EOS % 1.6 % (0-4.5); HEMATOCRIT 41.6 % (32.4-45.2); HEMOGLOBIN 13.6 GM/dL (10.7-15.3); LYMPH % 26.7 % (8-40); MCHC 32.7 g/dl (32.0-36.0); MEAN CELL VOLUME 97.9 fl (80-96); MEAN PLT VOLUME 9.5 fl (7.5-11.1); MONO % 11.3 % (3.8-10.2); NEUT % 59.6 % (42.8-82.8); PLATELET COUNT 190 10^3/uL (134-434); RBC 4.25 M/mm3 (3.60-5.2)
[2021-11-21] MEDS: CEFTRIAXONE 1 GM in DEXTROSE 5%-WATER - 50 ML IVPB SCH (10:23)
[2021-11-21] MEDS: amLODIPine BESYLATE 5 MG TABLET (FP) PO SCH (10:23)
[2021-11-21] MEDS: ENOXAPARIN NA (PORCINE) 40 MG/0.4 ML DISP.SYRIN SQ SCH (10:24)
[2021-11-21 10:42] LABS: CALCIUM 8.8 mg/dL (8.5-10.1)
[2021-11-21 10:43] LABS: BLOOD UREA NITROGEN 18.6 mg/dL (7-18)
[2021-11-21 10:46] LABS: CREATININE 0.9 mg/dL (0.55-1.3)
[2021-11-21 10:48] LABS: BILIRUBIN,TOTAL 0.3 mg/dL (0.2-1); TOT PROT 7.5 g/dl (6.4-8.2)
[2021-11-21] MEDS ORDERED: methaDONE HCL 10 MG TABLET PO SCH (11:00)
[2021-11-21] MEDS: methaDONE 40 MG, methaDONE 10 MG PO SCH (12:23)
[2021-11-21] MEDS: ATORVASTATIN CA 40 MG TABLET (FP) PO SCH (21:41)
[2021-11-22] MEDS: methaDONE 40 MG, methaDONE 10 MG PO SCH (05:50)
[2021-11-22 09:40] LABS: HEMATOCRIT 38.9 % (32.4-45.2); HEMOGLOBIN 12.5 GM/dL (10.7-15.3); MCH 31.4 pg (25.7-33.7); MCHC 32.2 g/dl (32.0-36.0); MEAN CELL VOLUME 97.3 fl (80-96); MEAN PLT VOLUME 9.6 fl (7.5-11.1); PLATELET COUNT 196 10^3/uL (134-434); RBC 3.99 M/mm3 (3.60-5.2); RDW 13.8 % (11.6-15.6); WHITE BLOOD COUNT 3.2 K/mm3 (4.0-10.0)
[2021-11-22 10:08] LABS: BLOOD UREA NITROGEN 14.5 mg/dL (7-18)
[2021-11-22 10:11] LABS: CALCIUM 8.6 mg/dL (8.5-10.1)
[2021-11-22 10:13] LABS: CREATININE 0.8 mg/dL (0.55-1.3); PHOSPHOROUS 4.2 mg/dL (2.5-4.9)
[2021-11-22] MEDS: ENOXAPARIN NA (PORCINE) 40 MG/0.4 ML DISP.SYRIN SQ SCH (10:41)
[2021-11-22] MEDS: amLODIPine BESYLATE 5 MG TABLET (FP) PO SCH (10:42)
[2021-11-22] MEDS: CEFTRIAXONE 1 GM in DEXTROSE 5%-WATER - 50 ML IVPB SCH ×2 (10:42→12:03)
[2021-11-22] MEDS ORDERED: CEPHALEXIN MONOHYDRATE 500 MG CAPSULE (UD) PO SCH ×2 (12:10→22:00)
[2021-11-22] MEDS: LACTOBACILLUS ACIDOPHILUS 1 TABLET PO SCH (18:02)
[2021-11-22 18:38] VITALS: RESP 20
[2021-11-22] MEDS: ATORVASTATIN CA 40 MG TABLET (FP) PO SCH (22:40)
[2021-11-22] MEDS: CEPHALEXIN MONOHYDRATE 500 MG CAPSULE (UD) PO SCH (22:40)
[2021-11-23] MEDS: methaDONE 40 MG, methaDONE 10 MG PO SCH (06:33)
[2021-11-23] MEDS: ENOXAPARIN NA (PORCINE) 40 MG/0.4 ML DISP.SYRIN SQ SCH (11:12)
[2021-11-23] MEDS: CEPHALEXIN MONOHYDRATE 500 MG CAPSULE (UD) PO SCH (11:13)
[2021-11-23] MEDS: amLODIPine BESYLATE 5 MG TABLET (FP) PO SCH (11:13)
[2021-11-23] MEDS: LACTOBACILLUS ACIDOPHILUS 1 TABLET PO SCH (11:13)
[2021-11-23 12:48] LABS: HEMATOCRIT 39.9 % (32.4-45.2); MCH 31.7 pg (25.7-33.7); MCHC 32.6 g/dl (32.0-36.0); MEAN CELL VOLUME 97.2 fl (80-96); MEAN PLT VOLUME 9.6 fl (7.5-11.1); PLATELET COUNT 229 10^3/uL (134-434); RBC 4.11 M/mm3 (3.60-5.2); RDW 13.7 % (11.6-15.6); WHITE BLOOD COUNT 3.6 K/mm3 (4.0-10.0)
[2021-11-23 13:10] LABS: BLOOD UREA NITROGEN 15.5 mg/dL (7-18); CALCIUM 8.9 mg/dL (8.5-10.1)
[2021-11-23 13:13] LABS: CREATININE 0.8 mg/dL (0.55-1.3)
[2021-11-23 13:25] VITALS: BP 122/66; PULSE 74; TEMP 98.3
[2021-11-23] MEDS ORDERED: VANCOMYCIN 250 MG/5 ML ORAL SOLUTION PO ONE (18:35)
== END 2021-11-23 18:24 | disposition other institution (70) | DRG 383 ==
LOC: JER 14:46 → JERBED 18:02 → J5S 11-18 02:09
PROVIDERS: ADMIT Internal Medicine
DX: L03.115 Cellulitis of right lower limb (principal); I10 Essential (primary) hypertension; E78.5 Hyperlipidemia, unspecified; M32.9 Systemic lupus erythematosus, unspecified; F11.20 Opioid dependence, uncomplicated; E03.9 Hypothyroidism, unspecified; F10.239 Alcohol dependence with withdrawal, unspecified; F19.10 Other psychoactive substance abuse, uncomplicated; F39 Unspecified mood [affective] disorder; M25.571 Pain in right ankle and joints of right foot; R26.9 Unspecified abnormalities of gait and mobility; F41.8 Other specified anxiety disorders
CPT/HCPCS: 36415; 70450-TC; 73590-TC-RT-FY; 73610-TC-RT-FY; 73718-TC-RT; 80048; 80053; 80061; 80307; 81003; 83735; 84100; 85025; 85027; 85610; 85651; 85730; 86140; 86850; 86900; 86901; 87045; 87046; 87077; 87086; 87324; 87449; 93005; 93010; 93971-TC; 97116-GP; 97162-GP; 99285-25; C9803-CS; U0003; U0005

== ENCOUNTER 2021-11-23 18:07 | Inpatient (IN) | payer OTHER ==
[2021-11-23] MEDS ORDERED: LOPERAMIDE HCL 2 MG CAPSULE PO PRN (23:00)
[2021-11-23] MEDS ORDERED: MAG HYDROX/AL HYDROX/SIMETH 30 ML UNIT-DOSE CUP PO PRN (23:00)
[2021-11-23] MEDS ORDERED: BENZOCAINE/MENTHOL (CHLORASEPTIC ) LOZENGE MM PRN (23:00)
[2021-11-23] MEDS ORDERED: P-EPHED 60MG/TRIPROLIDI 2.5MG TABLET PO PRN (23:00)
[2021-11-23] MEDS ORDERED: ACETAMINOPHEN 325 MG TABLET (FP) PO PRN (23:00)
[2021-11-23] MEDS ORDERED: guaiFENesin 200 MG/10 ML 10 ML UNIT-DOSE CUPS PO PRN (23:00)
[2021-11-23] MEDS ORDERED: IBUPROFEN 400 MG TABLET (FP) PO PRN (23:00)
[2021-11-23] MEDS ORDERED: MAGNESIUM HYDROX 2400MG/30ML ORAL SUSPENSION 30 ML CUP PO PRN (23:00)
[2021-11-23] MEDS ORDERED: AMMONIUM LACTATE 12% LOTION 225 GM BOTTLE TP PRN (23:03)
[2021-11-24] MEDS ORDERED: LOPERAMIDE HCL 2 MG CAPSULE ONE (00:43)
[2021-11-24] MEDS: MELATONIN 5 MG TABLETS PO SCH ×2 (00:50→21:49)
[2021-11-24 02:45] VITALS: BMI 26.4
[2021-11-24] MEDS ORDERED: methaDONE HCL 10 MG TABLET PO ONE (10:09)
[2021-11-24] MEDS ORDERED: methaDONE 40 MG, methaDONE 10 MG PO ONE (11:00)
[2021-11-24] MEDS: PRENATAL VITAMINS W/ FOLIC ACID TABLET (FP) PO SCH (11:45)
[2021-11-24] MEDS: amLODIPine BESYLATE 10 MG TABLET (FP) PO SCH (11:46)
[2021-11-24] MEDS: CEPHALEXIN MONOHYDRATE 500 MG CAPSULE (UD) PO SCH ×2 (11:46→21:49)
[2021-11-24] MEDS: HYDROXYCHLOROQUINE SO4 200 MG TABLET (FP) PO SCH (14:55)
[2021-11-24] MEDS: LACTOBACILLUS ACIDOPHILUS 1 TABLET PO SCH (14:55)
[2021-11-24] MEDS: ATORVASTATIN CA 40 MG TABLET (FP) PO SCH (21:49)
[2021-11-24] MEDS: QUEtiapine FUMARATE 100 MG TABLET (FP) PO SCH (21:49)
[2021-11-24] MEDS: THIAMINE HCL 100 MG TABLET (FP) PO SCH (21:50)
[2021-11-25] MEDS ORDERED: methaDONE HCL 10 MG TABLET PO SCH (06:00)
[2021-11-25] MEDS: methaDONE 40 MG, methaDONE 10 MG PO SCH (07:39)
[2021-11-25] MEDS: amLODIPine BESYLATE 10 MG TABLET (FP) PO SCH (10:43)
[2021-11-25] MEDS: CEPHALEXIN MONOHYDRATE 500 MG CAPSULE (UD) PO SCH ×2 (10:43→22:56)
[2021-11-25] MEDS: LACTOBACILLUS ACIDOPHILUS 1 TABLET PO SCH (10:47)
[2021-11-25] MEDS: HYDROXYCHLOROQUINE SO4 200 MG TABLET (FP) PO SCH (10:47)
[2021-11-25] MEDS: PRENATAL VITAMINS W/ FOLIC ACID TABLET (FP) PO SCH (10:47)
[2021-11-25] MEDS: MELATONIN 5 MG TABLETS PO SCH (22:56)
[2021-11-25] MEDS: ATORVASTATIN CA 40 MG TABLET (FP) PO SCH (22:56)
[2021-11-25] MEDS: QUEtiapine FUMARATE 100 MG TABLET (FP) PO SCH (22:56)
[2021-11-25] MEDS: THIAMINE HCL 100 MG TABLET (FP) PO SCH (22:56)
[2021-11-26 07:24] VITALS: RESP 18
[2021-11-26] MEDS: PRENATAL VITAMINS W/ FOLIC ACID TABLET (FP) PO SCH (10:18)
[2021-11-26] MEDS: amLODIPine BESYLATE 10 MG TABLET (FP) PO SCH (10:18)
[2021-11-26] MEDS: CEPHALEXIN MONOHYDRATE 500 MG CAPSULE (UD) PO SCH ×2 (10:19→21:57)
[2021-11-26] MEDS: HYDROXYCHLOROQUINE SO4 200 MG TABLET (FP) PO SCH (10:20)
[2021-11-26] MEDS: LACTOBACILLUS ACIDOPHILUS 1 TABLET PO SCH (10:20)
[2021-11-26] MEDS: methaDONE 40 MG, methaDONE 10 MG PO SCH (16:16)
[2021-11-26] MEDS: THIAMINE HCL 100 MG TABLET (FP) PO SCH (21:57)
[2021-11-26] MEDS: QUEtiapine FUMARATE 100 MG TABLET (FP) PO SCH (21:57)
[2021-11-26] MEDS: ATORVASTATIN CA 40 MG TABLET (FP) PO SCH (21:57)
[2021-11-26] MEDS: MELATONIN 5 MG TABLETS PO SCH (21:58)
[2021-11-27] MEDS: methaDONE 40 MG, methaDONE 10 MG PO SCH (06:39)
[2021-11-27] MEDS: PRENATAL VITAMINS W/ FOLIC ACID TABLET (FP) PO SCH (10:33)
[2021-11-27] MEDS: LACTOBACILLUS ACIDOPHILUS 1 TABLET PO SCH (10:34)
[2021-11-27] MEDS: CEPHALEXIN MONOHYDRATE 500 MG CAPSULE (UD) PO SCH (10:34)
[2021-11-27] MEDS: amLODIPine BESYLATE 10 MG TABLET (FP) PO SCH (10:34)
[2021-11-27] MEDS: HYDROXYCHLOROQUINE SO4 200 MG TABLET (FP) PO SCH (10:34)
[2021-11-27] MEDS: ATORVASTATIN CA 40 MG TABLET (FP) PO SCH (22:26)
[2021-11-27] MEDS: THIAMINE HCL 100 MG TABLET (FP) PO SCH (22:27)
[2021-11-27] MEDS: MELATONIN 5 MG TABLETS PO SCH (22:27)
[2021-11-27] MEDS: QUEtiapine FUMARATE 100 MG TABLET (FP) PO SCH (22:27)
[2021-11-28] MEDS: methaDONE 40 MG, methaDONE 10 MG PO SCH (08:01)
[2021-11-28] MEDS: amLODIPine BESYLATE 10 MG TABLET (FP) PO SCH (10:34)
[2021-11-28] MEDS: PRENATAL VITAMINS W/ FOLIC ACID TABLET (FP) PO SCH (10:34)
[2021-11-28] MEDS: HYDROXYCHLOROQUINE SO4 200 MG TABLET (FP) PO SCH (12:13)
[2021-11-28] MEDS: LACTOBACILLUS ACIDOPHILUS 1 TABLET PO SCH (12:14)
[2021-11-28] MEDS: MELATONIN 5 MG TABLETS PO SCH (21:15)
[2021-11-28] MEDS: THIAMINE HCL 100 MG TABLET (FP) PO SCH (21:15)
[2021-11-28] MEDS: QUEtiapine FUMARATE 100 MG TABLET (FP) PO SCH (21:15)
[2021-11-28] MEDS: ATORVASTATIN CA 40 MG TABLET (FP) PO SCH (21:15)
[2021-11-29] MEDS: methaDONE 40 MG, methaDONE 10 MG PO SCH (06:29)
[2021-11-29] MEDS: HYDROXYCHLOROQUINE SO4 200 MG TABLET (FP) PO SCH (11:03)
[2021-11-29] MEDS: LACTOBACILLUS ACIDOPHILUS 1 TABLET PO SCH (11:03)
[2021-11-29] MEDS: amLODIPine BESYLATE 10 MG TABLET (FP) PO SCH (11:04)
[2021-11-29] MEDS: PRENATAL VITAMINS W/ FOLIC ACID TABLET (FP) PO SCH (11:05)
[2021-11-29] MEDS: THIAMINE HCL 100 MG TABLET (FP) PO SCH (21:23)
[2021-11-29] MEDS: MELATONIN 5 MG TABLETS PO SCH (21:23)
[2021-11-29] MEDS: ATORVASTATIN CA 40 MG TABLET (FP) PO SCH (21:23)
[2021-11-29] MEDS: QUEtiapine FUMARATE 100 MG TABLET (FP) PO SCH (21:23)
[2021-11-30] MEDS: methaDONE 40 MG, methaDONE 10 MG PO SCH (06:21)
[2021-11-30 07:40] VITALS: BP 141/79; PULSE 68; TEMP 97.3
== END 2021-11-30 07:33 | disposition home or self-care (01) | DRG 772 ==
LOC: YASAS 18:07 → Y5N 23:13
PROVIDERS: ADMIT Allergy & Immunology; ATTEND Psychiatry & Neurology Pain Medicine
PROC: HZ42ZZZ Group Counseling for Substance Abuse Treatment, Cognitive-Behavioral (ICD-10-PCS; principal; 2021-11-23)
DX: F11.20 Opioid dependence, uncomplicated (principal); F10.20 Alcohol dependence, uncomplicated; F14.20 Cocaine dependence, uncomplicated; F16.20 Hallucinogen dependence, uncomplicated; F12.20 Cannabis dependence, uncomplicated; F17.210 Nicotine dependence, cigarettes, uncomplicated; F19.24 Other psychoactive substance dependence with psychoactive substance-induced mood disorder; F31.9 Bipolar disorder, unspecified; F43.10 Post-traumatic stress disorder, unspecified; L03.115 Cellulitis of right lower limb; M32.9 Systemic lupus erythematosus, unspecified; M54.50 Low back pain, unspecified; G89.29 Other chronic pain; E03.9 Hypothyroidism, unspecified; R63.8 Other symptoms and signs concerning food and fluid intake
CPT/HCPCS: 36415; 81025; 84132; C9803-CS; U0003; U0005

== ENCOUNTER 2023-10-07 12:13 | Inpatient (IN) | payer OTHER ==
[2023-10-07 12:37] VITALS: BMI 24.1
[2023-10-07] MEDS ORDERED: BENZOCAINE/MENTHOL (CHLORASEPTIC ) LOZENGE MM PRN (13:36)
[2023-10-07] MEDS ORDERED: IBUPROFEN 600 MG TABLET (FP) PO PRN (13:36)
[2023-10-07] MEDS ORDERED: BENZONATATE 200 MG CAPSULE PO PRN (13:36)
[2023-10-07] MEDS ORDERED: NICOTINE POLACRILEX 2 MG GUM BUC PRN (13:36)
[2023-10-07] MEDS ORDERED: POLYETHYLENE GLYCOL (HEALTHYLAX) 3350 17 GM PACKET PO PRN (13:36)
[2023-10-07] MEDS ORDERED: IBUPROFEN 400 MG TABLET (FP) PO PRN (13:36)
[2023-10-07] MEDS ORDERED: ACETAMINOPHEN 325 MG TABLET (FP) PO PRN (13:36)
[2023-10-07] MEDS ORDERED: LOPERAMIDE HCL 2 MG CAPSULE PO PRN (13:36)
[2023-10-07] MEDS ORDERED: NALOXONE (NARCAN) HCL 4 MG/0.1 ML SPRAY NS PRN (13:36)
[2023-10-07] MEDS ORDERED: MAG HYDROX/AL HYDROX/SIMETH 30 ML UNIT-DOSE CUP PO PRN (13:36)
[2023-10-07] MEDS ORDERED: NALOXONE HCL 0.4 MG/ML VIAL IM PRN (13:36)
[2023-10-07] MEDS ORDERED: NICOTINE POLACRILEX 2 MG LOZENGE BC PRN (13:36)
[2023-10-07] MEDS ORDERED: guaiFENesin 600 MG TABLET.ER (FP) PO PRN (13:36)
[2023-10-07] MEDS ORDERED: MAGNESIUM HYDROX 2400MG/30ML ORAL SUSPENSION 30 ML CUP PO PRN (13:36)
[2023-10-07] MEDS ORDERED: PRENATAL VITAMINS W/ FOLIC ACID TABLET (FP) PO ONE (15:07)
[2023-10-07] MEDS ORDERED: amLODIPine BESYLATE 5 MG TABLET (FP) ONE (15:07)
[2023-10-07] MEDS ORDERED: NICOTINE 14 MG/24 HOURS TOPICAL PATCH TD ONE (15:07)
[2023-10-07] MEDS: amLODIPine BESYLATE 10 MG TABLET (FP) PO SCH (15:22)
[2023-10-07] MEDS: NICOTINE 14 MG/24 HOURS TOPICAL PATCH TD SCH (15:23)
[2023-10-07] MEDS: PRENATAL VITAMINS W/ FOLIC ACID TABLET (FP) PO SCH (15:23)
[2023-10-07 18:19] VITALS: RESP 16
[2023-10-07] MEDS: TUBERCULIN PPD 5 TU/0.1ML SYRINGE (IN PATIENT USE ONLY) ID ONE (18:22)
[2023-10-07] MEDS: METOPROLOL TARTRATE 50 MG TABLET (FP) PO SCH (22:43)
[2023-10-07] MEDS: ATORVASTATIN CA 40 MG TABLET (FP) PO SCH (22:44)
[2023-10-07] MEDS: hydrOXYzine PAMOATE 25 MG CAPSULE (FP) PO PRN (22:44)
[2023-10-07] MEDS: MELATONIN 5 MG TABLETS PO SCH (22:44)
[2023-10-07] MEDS: THIAMINE 100 MG TABLET PO SCH (22:44)
[2023-10-08 00:32] LABS: EPI CELLS 26 /uL (0-25.1); HYALINE CASTS 1 /uL (0-3.1); URINE APPEARANCE CLEAR; URINE BACTERIA 337 /uL (0-1359); URINE BILIRUBIN NEGATIVE (NEGATIVE); URINE COLOR YELLOW; URINE GLUCOSE (UA) NEGATIVE (NEGATIVE); URINE KETONE NEGATIVE (NEGATIVE); URINE LEUK ESTERASE NEGATIVE (NEGATIVE); URINE NITRITE NEGATIVE (NEGATIVE); URINE PROTEIN 1+ (NEGATIVE); URINE RBC 9 /uL (0-23.9); URINE WBC 34 /uL (0-25.8)
[2023-10-08] MEDS: INSULIN ASPART SLIDING SCALE (NOVOLOG) 1 VIAL SQ SCH (07:57)
[2023-10-08] MEDS: LACTOBACILLUS ACIDOPHILUS 1 TABLET PO SCH (09:18)
[2023-10-08 09:35] VITALS: BP 170/93; PULSE 60; TEMP 97.5
[2023-10-08 11:44] LABS: HEMATOCRIT 41.3 % (32.4-45.2); HEMOGLOBIN 13.3 GM/dL (10.7-15.3); MCH 31.2 pg (25.7-33.7); MCHC 32.2 g/dl (32.0-36.0); MEAN CELL VOLUME 96.8 fl (80-96); MEAN PLT VOLUME 11.3 fl (7.5-11.1); PLATELET COUNT 136 10^3/uL (134-434); RBC 4.26 M/mm3 (3.60-5.2); RDW 14.4 % (11.6-15.6); WHITE BLOOD COUNT 3.3 K/mm3 (4.0-10.0)
[2023-10-08 11:52] LABS: POTASSIUM 3.8 mmol/L (3.5-5.1)
[2023-10-08 12:02] LABS: ALBUMIN 3.3 g/dl (3.4-5.0); BLOOD UREA NITROGEN 24.5 mg/dL (7-18); CALCIUM 8.5 mg/dL (8.5-10.1)
[2023-10-08 12:05] LABS: CREATININE 1.3 mg/dL (0.55-1.3)
[2023-10-08 12:07] LABS: BILIRUBIN,TOTAL 0.3 mg/dL (0.2-1); TOT PROT 6.8 g/dl (6.4-8.2)
[2023-10-08] MEDS ORDERED: cloNIDine HCL 0.1 MG TABLET PO PRN (12:36)
[2023-10-08 15:45] LABS: SYPHILIS W/ RPR CONF NON-REACTIVE (NONREACTIVE)
== END 2023-10-08 12:51 | disposition home or self-care (01) | DRG 772 ==
LOC: YASAS 12:13 → Y3NR 16:55
PROVIDERS: ADMIT Allergy & Immunology; ATTEND Psychiatry & Neurology Pain Medicine
PROC: HZ42ZZZ Group Counseling for Substance Abuse Treatment, Cognitive-Behavioral (ICD-10-PCS; principal; 2023-10-07)
DX: F11.20 Opioid dependence, uncomplicated (principal); F14.20 Cocaine dependence, uncomplicated; F16.10 Hallucinogen abuse, uncomplicated; F10.20 Alcohol dependence, uncomplicated; F17.210 Nicotine dependence, cigarettes, uncomplicated; F19.282 Other psychoactive substance dependence with psychoactive substance-induced sleep disorder; F43.10 Post-traumatic stress disorder, unspecified; E03.9 Hypothyroidism, unspecified; I10 Essential (primary) hypertension; M32.9 Systemic lupus erythematosus, unspecified; M54.50 Low back pain, unspecified; G89.29 Other chronic pain; Z62.810 Personal history of physical and sexual abuse in childhood; Z91.410 Personal history of adult physical and sexual abuse; Z63.8 Other specified problems related to primary support group; Z63.0 Problems in relationship with spouse or partner
CPT/HCPCS: 36415; 80053; 80305; 80307; 81003; 82962; 85027; 86780; 86803; 87811; 93005; 93010

== ENCOUNTER 2023-10-08 12:56 | Inpatient (IN) | payer OTHER ==
[2023-10-08] MEDS ORDERED: LOPERAMIDE HCL 2 MG CAPSULE PO PRN (13:29)
[2023-10-08] MEDS ORDERED: NALOXONE HCL 0.4 MG/ML VIAL IM PRN (13:29)
[2023-10-08] MEDS ORDERED: POLYETHYLENE GLYCOL (HEALTHYLAX) 3350 17 GM PACKET PO PRN (13:29)
[2023-10-08] MEDS ORDERED: NALOXONE (NARCAN) HCL 4 MG/0.1 ML SPRAY NS PRN (13:29)
[2023-10-08] MEDS ORDERED: MAGNESIUM HYDROX 2400MG/30ML ORAL SUSPENSION 30 ML CUP PO PRN (13:29)
[2023-10-08] MEDS ORDERED: BENZONATATE 200 MG CAPSULE PO PRN (13:29)
[2023-10-08] MEDS ORDERED: guaiFENesin 600 MG TABLET.ER (FP) PO PRN (13:29)
[2023-10-08] MEDS ORDERED: ACETAMINOPHEN 325 MG TABLET (FP) PO PRN (13:29)
[2023-10-08] MEDS ORDERED: IBUPROFEN 600 MG TABLET (FP) PO PRN (13:29)
[2023-10-08] MEDS ORDERED: DICYCLOMINE HCL 10 MG CAPSULE PO PRN (13:29)
[2023-10-08] MEDS ORDERED: diazePAM 5 MG TABLET PO PRN (13:29)
[2023-10-08] MEDS ORDERED: hydrOXYzine PAMOATE 25 MG CAPSULE (FP) PO PRN (13:29)
[2023-10-08] MEDS ORDERED: IBUPROFEN 400 MG TABLET (FP) PO PRN (13:29)
[2023-10-08] MEDS ORDERED: ONDANSETRON *ODT* 4 MG TABLET SL PRN (13:29)
[2023-10-08] MEDS ORDERED: MAG HYDROX/AL HYDROX/SIMETH 30 ML UNIT-DOSE CUP PO PRN (13:29)
[2023-10-08] MEDS ORDERED: BENZOCAINE/MENTHOL (CHLORASEPTIC ) LOZENGE MM PRN (13:29)
[2023-10-08] MEDS: TRIMETHOBENZAMIDE HCL 200MG/2ML INJ IM ONE ×2 (13:58→16:09)
[2023-10-08] MEDS: cloNIDine HCL 0.1 MG TABLET PO PRN (14:28)
[2023-10-08] MEDS: METHOCARBAMOL 500 MG TABLET PO PRN (14:57)
[2023-10-08 15:10] VITALS: BMI 24.1
[2023-10-08] MEDS: diazePAM 5 MG TABLET PO SCH (17:45)
[2023-10-08] MEDS ORDERED: MELATONIN 5 MG TABLETS PO SCH (22:00)
[2023-10-08] MEDS: QUEtiapine FUMARATE 100 MG TABLET (FP) PO SCH (22:55)
[2023-10-08] MEDS: THIAMINE 100 MG TABLET PO SCH (22:55)
[2023-10-09] MEDS: PRENATAL VITAMINS W/ FOLIC ACID TABLET (FP) PO SCH (09:49)
[2023-10-09] MEDS: methaDONE HCL 10 MG TABLET (FOR DETOX USE ONLY) PO ONE ×2 (09:49→14:55)
[2023-10-09] MEDS: amLODIPine BESYLATE 10 MG TABLET (FP) PO SCH (14:55)
[2023-10-09] MEDS: METOPROLOL TARTRATE 50 MG TABLET (FP) PO ONE (15:46)
[2023-10-09] MEDS: METOPROLOL TARTRATE 50 MG TABLET (FP) PO SCH (22:38)
[2023-10-09] MEDS: FAMOTIDINE 20 MG TABLET PO SCH (22:38)
[2023-10-10] MEDS: diazePAM 5 MG TABLET PO SCH (05:59)
[2023-10-10] MEDS ORDERED: amLODIPine BESYLATE 10 MG TABLET (FP) PO SCH (10:00)
[2023-10-10] MEDS: LACTOBACILLUS ACIDOPHILUS 1 TABLET PO SCH (10:43)
[2023-10-10 11:55] LABS: POTASSIUM 4.3 mmol/L (3.5-5.1)
[2023-10-10 11:59] LABS: CALCIUM 8.9 mg/dL (8.5-10.1)
[2023-10-10 12:00] LABS: BLOOD UREA NITROGEN 26.8 mg/dL (7-18)
[2023-10-10 12:03] LABS: CREATININE 1.4 mg/dL (0.55-1.3)
[2023-10-11] MEDS: diazePAM 5 MG TABLET PO SCH (05:53)
[2023-10-11] MEDS: methaDONE HCL 10 MG TABLET (FOR DETOX USE ONLY) PO ONE (09:14)
[2023-10-11] MEDS: BISMUTH SUBSALICYLATE 262 MG/15 ML BTL PO PRN (17:12)
[2023-10-12] MEDS: diazePAM 5 MG TABLET PO ONE (06:31)
[2023-10-12 08:58] VITALS: BP 158/80; PULSE 60; RESP 18; TEMP 97.5
[2023-10-12] MEDS: TETRAHYDROZOLINE HCL EYE DROPS OU PRN (10:35)
== END 2023-10-12 10:41 | disposition home or self-care (01) | DRG 773 ==
LOC: YASAS 12:56 → Y3N 13:00
PROVIDERS: ADMIT Allergy & Immunology; ATTEND Surgery
PROC: HZ2ZZZZ Detoxification Services for Substance Abuse Treatment (ICD-10-PCS; principal; 2023-10-08)
DX: F11.23 Opioid dependence with withdrawal (principal); F10.230 Alcohol dependence with withdrawal, uncomplicated; F14.10 Cocaine abuse, uncomplicated; F16.10 Hallucinogen abuse, uncomplicated; E78.5 Hyperlipidemia, unspecified; E03.9 Hypothyroidism, unspecified; I10 Essential (primary) hypertension; M32.9 Systemic lupus erythematosus, unspecified; R11.2 Nausea with vomiting, unspecified
CPT/HCPCS: 36415; 80048; 93005; 93010

== ENCOUNTER 2023-10-08 17:31 | Emergency (ER) | payer OTHER ==
[2023-10-08 18:14] VITALS: BMI 25.6
[2023-10-08] MEDS ORDERED: ONDANSETRON 4 MG/2 ML VIAL ONE (19:04)
[2023-10-08] MEDS: SODIUM CHLORIDE 0.9% 500 ML INFUS.BAG IV ONE (19:20)
[2023-10-08] MEDS: ONDANSETRON 4 MG/2 ML VIAL IVPUSH ONE (19:20)
[2023-10-08 19:27] LABS: BASO % 0.4 % (0-2.0); EOS % 0.1 % (0-4.5); HEMATOCRIT 47.6 % (32.4-45.2); HEMOGLOBIN 15.6 GM/dL (10.7-15.3); LYMPH % 16.5 % (8-40); MCH 31.1 pg (25.7-33.7); MCHC 32.7 g/dl (32.0-36.0); MEAN CELL VOLUME 94.9 fl (80-96); MEAN PLT VOLUME 10.1 fl (7.5-11.1); MONO % 3.9 % (3.8-10.2); NEUT % 79.1 % (42.8-82.8); PLATELET COUNT 171 10^3/uL (134-434); RBC 5.01 M/mm3 (3.60-5.2); RDW 14.6 % (11.6-15.6); WHITE BLOOD COUNT 6.5 K/mm3 (4.0-10.0)
[2023-10-08 19:31] LABS: INR 1.11 (0.83-1.09); PROTHROMBIN TIME (PATIENT) 12.5 SEC (9.7-13.0)
[2023-10-08 19:44] LABS: POTASSIUM 5.3 mmol/L (3.5-5.1)
[2023-10-08 19:46] LABS: CALCIUM 9.2 mg/dL (8.5-10.1)
[2023-10-08 19:47] LABS: ALBUMIN 3.6 g/dl (3.4-5.0)
[2023-10-08 19:49] LABS: CREATININE 1.1 mg/dL (0.55-1.3)
[2023-10-08 19:51] LABS: BILIRUBIN,TOTAL 0.6 mg/dL (0.2-1)
[2023-10-08] MEDS: MELATONIN 1 MG TABLET PO ONE (22:35)
[2023-10-08] MEDS ORDERED: ACETAMINOPHEN INJECTION 100 ML IVPB ONE (22:46)
[2023-10-08] MEDS ORDERED: MELATONIN 5 MG TABLETS ONE (22:46)
[2023-10-08] MEDS: ACETAMINOPHEN 1000 MG/100 ML BAG IVPB ONE (22:52)
[2023-10-08] MEDS: MELATONIN 5 MG TABLETS PO ONE (22:52)
[2023-10-09 06:42] VITALS: TEMP 99.7
[2023-10-09] MEDS ORDERED: hydrALAZINE HCL 20 MG/ML VIAL ONE (08:28)
[2023-10-09] MEDS: hydrALAZINE HCL 20 MG/ML VIAL IVPUSH ONE (08:30)
[2023-10-09 08:58] VITALS: RESP 18
[2023-10-09 09:38] VITALS: BP 150/77; PULSE 72
== END 2023-10-09 10:30 | disposition home or self-care (01) ==
LOC: JER 17:31
PROC: 3E033NZ Introduction of Analgesics, Hypnotics, Sedatives into Peripheral Vein, Percutaneous Approach (ICD-10-PCS; principal; 2023-10-08)
PROC: 3E033GC Introduction of Other Therapeutic Substance into Peripheral Vein, Percutaneous Approach (ICD-10-PCS; 2023-10-08)
PROC: 3E033GC Introduction of Other Therapeutic Substance into Peripheral Vein, Percutaneous Approach (ICD-10-PCS; 2023-10-09)
DX: R11.2 Nausea with vomiting, unspecified (principal); I10 Essential (primary) hypertension; R10.84 Generalized abdominal pain; Z20.822 Contact with and (suspected) exposure to COVID-19
CPT/HCPCS: 0241U-QW; 36415; 70450-TC; 71250-TC; 74177-TC; 80053; 83605; 83690; 84484; 85025; 85610; 96374; 96375; 99285-25; J0131; Q9967

== ENCOUNTER 2024-03-03 13:35 | Inpatient (IN) | payer OTHER ==
[2024-03-03] MEDS ORDERED: NICOTINE POLACRILEX 4 MG LOZENGE BC PRN (17:20)
[2024-03-03] MEDS ORDERED: POLYETHYLENE GLYCOL (HEALTHYLAX) 3350 17 GM PACKET PO PRN (17:20)
[2024-03-03] MEDS ORDERED: NALOXONE HCL 0.4 MG/ML VIAL IVPUSH PRN (17:20)
[2024-03-03] MEDS ORDERED: NICOTINE POLACRILEX 4 MG GUM BUC PRN (17:20)
[2024-03-03] MEDS ORDERED: METHOCARBAMOL 500 MG TABLET PO PRN (17:20)
[2024-03-03] MEDS ORDERED: guaiFENesin 600 MG TABLET.ER (FP) PO PRN (17:20)
[2024-03-03] MEDS ORDERED: BENZOCAINE/MENTHOL (CHLORASEPTIC ) LOZENGE MM PRN (17:20)
[2024-03-03] MEDS ORDERED: LOPERAMIDE HCL 2 MG CAPSULE PO PRN (17:20)
[2024-03-03] MEDS ORDERED: NALOXONE (NARCAN) HCL 4 MG/0.1 ML SPRAY NS PRN (17:20)
[2024-03-03] MEDS ORDERED: BENZONATATE 200 MG CAPSULE PO PRN (17:20)
[2024-03-03] MEDS ORDERED: MAGNESIUM HYDROX 2400MG/30ML ORAL SUSPENSION 30 ML CUP PO PRN (17:20)
[2024-03-03] MEDS: ALBUTEROL SO4 HFA INHALER IH SCH (18:00)
[2024-03-03] MEDS: GABAPENTIN 100 MG CAPSULE PO SCH (21:08)
[2024-03-03] MEDS: QUEtiapine FUMARATE 100 MG TABLET (FP) PO SCH (21:08)
[2024-03-03] MEDS: THIAMINE 100 MG TABLET PO SCH (21:08)
[2024-03-03] MEDS: MELATONIN 5 MG TABLETS PO SCH (21:08)
[2024-03-03] MEDS: FAMOTIDINE 20 MG TABLET PO SCH (21:08)
[2024-03-04] MEDS ORDERED: methaDONE HCL 10 MG TABLET PO SCH (08:15)
[2024-03-04] MEDS: methaDONE 40 MG, methaDONE 10 MG PO SCH (08:18)
[2024-03-04] MEDS: NICOTINE 21 MG/24 HOURS TOPICAL PATCH TD SCH (09:44)
[2024-03-04] MEDS: PRENATAL VITAMINS W/ FOLIC ACID TABLET (FP) PO SCH (09:45)
[2024-03-04] MEDS: amLODIPine BESYLATE 10 MG TABLET (FP) PO SCH (09:45)
[2024-03-04] MEDS ORDERED: ALBUTEROL SO4 HFA INHALER IH PRN (16:02)
[2024-03-04] MEDS: IBUPROFEN 600 MG TABLET (FP) PO PRN (18:49)
[2024-03-05] MEDS: IBUPROFEN 400 MG TABLET (FP) PO PRN (11:35)
[2024-03-12] MEDS: ACETAMINOPHEN 325 MG TABLET (FP) PO PRN (10:01)
[2024-03-12] MEDS: BACLOFEN 10 MG TABLET (FP) PO SCH (12:10)
[2024-03-12] MEDS: QUEtiapine FUMARATE 50 MG TABLET PO SCH (21:40)
[2024-03-15] MEDS ORDERED: QUEtiapine FUMARATE 25 MG TABLET ONE (20:01)
[2024-03-17] MEDS: methaDONE HCL 40 MG DISPERSABLE TABLET PO SCH (06:28)
[2024-03-17] MEDS: hydrOXYzine PAMOATE 25 MG CAPSULE (FP) PO PRN (06:28)
[2024-03-17] MEDS: QUEtiapine FUMARATE 100 MG TABLET (FP) PO SCH (21:11)
[2024-03-19] MEDS: MAG HYDROX/AL HYDROX/SIMETH 30 ML UNIT-DOSE CUP PO PRN (10:11)
[2024-03-22 05:45] VITALS: RESP 18
[2024-03-23 06:59] VITALS: BP 143/81; PULSE 75; TEMP 97.4
[2024-03-23] MEDS: NALOXONE (NYS OPIOID OVERDOSE PROGRAM) 4 MG/0.1 ML SPRAY NS SCH (10:42)
== END 2024-03-23 10:45 | disposition home or self-care (01) | DRG 772 ==
LOC: YASAS 13:35 → Y5N 13:36
PROVIDERS: ADMIT Psychiatry & Neurology Pain Medicine; ATTEND Family Medicine Addiction Medicine
PROC: HZ42ZZZ Group Counseling for Substance Abuse Treatment, Cognitive-Behavioral (ICD-10-PCS; principal; 2024-03-03)
DX: F11.20 Opioid dependence, uncomplicated (principal); F14.20 Cocaine dependence, uncomplicated; F17.210 Nicotine dependence, cigarettes, uncomplicated; F31.9 Bipolar disorder, unspecified; F19.24 Other psychoactive substance dependence with psychoactive substance-induced mood disorder; F43.10 Post-traumatic stress disorder, unspecified; I10 Essential (primary) hypertension; E78.5 Hyperlipidemia, unspecified; E03.9 Hypothyroidism, unspecified; M32.9 Systemic lupus erythematosus, unspecified; M54.50 Low back pain, unspecified; G89.29 Other chronic pain
CPT/HCPCS: 0241U-QW; 36415; 82140; 86803; J0475

== ENCOUNTER 2024-06-29 09:52 | Inpatient (IN) | payer OTHER ==
[2024-06-29 10:11] VITALS: BMI 24.1
[2024-06-29] MEDS ORDERED: methaDONE HCL 10 MG TABLET (FOR DETOX USE ONLY) PO PRN (11:14)
[2024-06-29] MEDS ORDERED: IBUPROFEN 600 MG TABLET (FP) PO PRN (11:14)
[2024-06-29] MEDS ORDERED: IBUPROFEN 400 MG TABLET (FP) PO PRN (11:14)
[2024-06-29] MEDS ORDERED: BENZOCAINE/MENTHOL (CHLORASEPTIC ) LOZENGE MM PRN (11:14)
[2024-06-29] MEDS ORDERED: MAGNESIUM HYDROX 2400MG/30ML ORAL SUSPENSION 30 ML CUP PO PRN (11:14)
[2024-06-29] MEDS ORDERED: LOPERAMIDE HCL 2 MG CAPSULE PO PRN (11:14)
[2024-06-29] MEDS ORDERED: ACETAMINOPHEN 325 MG TABLET (FP) PO PRN (11:14)
[2024-06-29] MEDS ORDERED: BENZONATATE 200 MG CAPSULE PO PRN (11:14)
[2024-06-29] MEDS ORDERED: NALOXONE (NARCAN) HCL 4 MG/0.1 ML SPRAY NS PRN (11:14)
[2024-06-29] MEDS ORDERED: NICOTINE POLACRILEX 2 MG GUM BUC PRN (11:14)
[2024-06-29] MEDS ORDERED: DICYCLOMINE HCL 10 MG CAPSULE PO PRN (11:14)
[2024-06-29] MEDS ORDERED: guaiFENesin 600 MG TABLET.ER (FP) PO PRN (11:14)
[2024-06-29] MEDS ORDERED: ONDANSETRON *ODT* 4 MG TABLET SL PRN (11:14)
[2024-06-29] MEDS ORDERED: BISMUTH SUBSALICYLATE 262 MG/15 ML BTL PO PRN (11:14)
[2024-06-29] MEDS ORDERED: POLYETHYLENE GLYCOL (HEALTHYLAX) 3350 17 GM PACKET PO PRN (11:14)
[2024-06-29] MEDS ORDERED: MAG HYDROX/AL HYDROX/SIMETH 30 ML UNIT-DOSE CUP PO PRN (11:14)
[2024-06-29] MEDS ORDERED: methaDONE HCL 10 MG TABLET (FOR DETOX USE ONLY) ONE (11:42)
[2024-06-29] MEDS: methaDONE HCL 10 MG TABLET (FOR DETOX USE ONLY) PO ONE (11:44)
[2024-06-29] MEDS: ALBUTEROL SO4 HFA INHALER IH SCH (14:00)
[2024-06-29] MEDS: FAMOTIDINE 20 MG TABLET PO SCH (15:01)
[2024-06-29] MEDS: METHOCARBAMOL 500 MG TABLET PO PRN (21:51)
[2024-06-29] MEDS: cloNIDine HCL 0.1 MG TABLET PO PRN (21:51)
[2024-06-29] MEDS: MELATONIN 5 MG TABLETS PO SCH (21:51)
[2024-06-29] MEDS: THIAMINE 100 MG TABLET PO SCH (21:51)
[2024-06-30] MEDS: PRENATAL VITAMINS W/ FOLIC ACID TABLET (FP) PO SCH (09:13)
[2024-06-30] MEDS: NICOTINE 21 MG/24 HOURS TOPICAL PATCH TD SCH (09:14)
[2024-06-30] MEDS: amLODIPine BESYLATE 10 MG TABLET (FP) PO SCH (09:14)
[2024-06-30] MEDS: methaDONE HCL 10 MG TABLET (FOR DETOX USE ONLY) PO ONE (09:15)
[2024-06-30 09:51] VITALS: RESP 16
[2024-06-30 11:28] LABS: HEMATOCRIT 48.7 % (34.1-44.9); HEMOGLOBIN 14.6 g/dL (11.2-15.7); PLATELET COUNT 196 x10^3/uL (182-369); RDW 14.1 % (12.4-16.4)
[2024-06-30 11:32] LABS: POTASSIUM 4.4 mmol/L (3.5-5.1)
[2024-06-30 11:42] LABS: ALBUMIN 3.3 g/dl (3.4-5.0); BLOOD UREA NITROGEN 26.2 mg/dL (7-18)
[2024-06-30 11:43] LABS: CALCIUM 9.6 mg/dL (8.5-10.1)
[2024-06-30 11:45] LABS: CREATININE 1.2 mg/dL (0.55-1.3)
[2024-06-30 11:46] LABS: BILIRUBIN,TOTAL 0.3 mg/dL (0.2-1)
[2024-06-30 11:47] LABS: TOT PROT 7.3 g/dl (6.4-8.2)
[2024-06-30] MEDS ORDERED: ALBUTEROL SO4 HFA INHALER IH PRN (19:34)
[2024-06-30] MEDS: hydrOXYzine PAMOATE 25 MG CAPSULE (FP) PO PRN (22:13)
[2024-07-01 11:08] VITALS: BP 167/86; PULSE 80; TEMP 96.6
[2024-07-02] MEDS ORDERED: methaDONE HCL 10 MG TABLET (FOR DETOX USE ONLY) PO ONE (10:00)
[2024-07-04] MEDS ORDERED: methaDONE HCL 10 MG TABLET (FOR DETOX USE ONLY) PO ONE (10:00)
== END 2024-07-01 11:17 | disposition left against medical advice (07) | DRG 770 ==
LOC: YASAS 09:52 → Y3N 11:38
PROVIDERS: ADMIT Allergy & Immunology; ATTEND Allergy & Immunology
PROC: HZ2ZZZZ Detoxification Services for Substance Abuse Treatment (ICD-10-PCS; principal; 2024-06-29)
DX: F11.23 Opioid dependence with withdrawal (principal); F14.20 Cocaine dependence, uncomplicated; F10.10 Alcohol abuse, uncomplicated; F16.20 Hallucinogen dependence, uncomplicated; F17.210 Nicotine dependence, cigarettes, uncomplicated; E78.5 Hyperlipidemia, unspecified; E03.9 Hypothyroidism, unspecified; I10 Essential (primary) hypertension; J45.909 Unspecified asthma, uncomplicated; K21.9 Gastro-esophageal reflux disease without esophagitis; M32.9 Systemic lupus erythematosus, unspecified; M19.90 Unspecified osteoarthritis, unspecified site
CPT/HCPCS: 36415; 80053; 80305; 80307; 85027; 86780; 93005; 93010